=== PATIENT | female | born 1945 | race African-American/Black ===

== ENCOUNTER → 2022-08-01 10:43 | Outpatient (BNVA) | payer MEDICARE, OTHER, SELFPAY | PROVIDERS: PCP Internal Medicine; Visit Provider Nurse Practitioner Family | DX: G47.33 Obstructive sleep apnea (adult) (pediatric) (principal); Z99.89 Dependence on other enabling machines and devices | CPT/HCPCS: 99212 ==

== ENCOUNTER 2023-08-04 10:32 | Outpatient (AMB) | payer MEDICARE, OTHER, SELFPAY ==
--- NOTE | 2023-08-04 10:44 | A.OFFVIS_ITS ---
Intake Vital Signs 08/04/23 10:51 Weight 161 lb 8 oz BP 120/80 Blood Pressure Location Lt brachial Position Sitting Pulse 51 Pulse Source Pulse Oximeter Pulse Oximetry (%) 99 Oxygen Delivery Method Room Air Intake Visit Reasons: 1yr Follow up DIONICIO - confirmed Intake Note: F/U sleep Corporate Compliance Officer Required: No Allergies cipro iv Adverse Reaction (Intermediate, Uncoded 08/04/23 10:45) limb swelling Medication List - Last Reconciled 08/04/23 by Zeenat Sharma CNP albuterol sulfate 90 mcg/actuation 0 mcg inhalation aspirin (Adult Low Dose Aspirin) 81 mg PO DAILY cholecalciferol (vitamin D3) 25 mcg PO DAILY fluticasone furoate-vilanterol 200-25 mcg/dose (Breo Ellipta) 1 inh inhalation DAILY fluticasone propionate 50 mcg/actuation 2 sprays intranasal BID PRN levothyroxine 50 mcg PO DAILY lisinopril-hydrochlorothiazide 10-12.5 mg 1 tab PO DAILY omeprazole 20 mg PO DAILY potassium chloride 20 mEq PO DAILY simvastatin 20 mg PO BEDTIME HPI HPI Comments History of Present Illness Details 77 y/o female patient presents for follo w up of DIONICIO on CPAP. CPAP compliance and therapy response report (04/30/23-07/28/23) reviewed. Pt is on APAP [id number]. Usage days 100 %, and average usage hours 4 hours 40 min. The max pressure was 10.3 and residual AHI was 2/hr. Pt reports she uses CPAP nightly. She wakes up refreshed but still can get tiredness around 4-5 pm, and falls asleep in her couch. Pt's sleep hours varies, but sleeps well with CPAP. Pt states that she is being bored after retired. She started levothyroxine December this year. COUNT INCLUDES THE [facility] Surgical History (Updated 08/01/22 @ 10:56 by Zainab Pena CMA) H/O shoulder surgery Previous back surgery Social History (Updated 08/04/23 @ 10:51 by Zainab Pena CMA) Alcohol intake: never Patient Tobacco Use Status: Former Tobacco user Review of Systems Const All systems reviewed & are unremarkable except as noted in HPI and below ENT Reports Normal hearing present Neuro Reports Normal hearing present Physical Exam Vital Signs: Last Vital Signs Pulse 51 08/04/23 10:51 BP 120/80 08/04/23 10:51 Pulse Ox 99 08/04/23 10:51 Oxygen Delivery Method Room Air 08/04/23 10:51 Const General: cooperative Nutritional Appearance: average body habitus Orientation/consciousness: patient oriented x3 Resp Effort & Inspection: normal respiratory effort and able to speak in complete sentences Neuro General: patient oriented x3, gait normal and moves all extremities Cranial nerves: Yes Bilaterally intact EOM present, Yes Normal facial strength present, Yes Midline tongue present, Yes Symmetric palate elevation present, Yes Normal hearing present, Yes Ability to bilaterally rotate head present and Yes Ability to bilaterally elevate shoulders present Cognition (Neuro): normal cognition Gait exam (Neuro): Normal gait present Psych Appearance: grossly normal Mental Status: mental status grossly normal Speech and movement: Normal speech and movement present Affect: normal affect Attitude: cooperative Assessment & Plan Assessment & Plan (1) DIONICIO on CPAP: Code(s): G47.33 - Obstructive sleep apnea (adult) (pediatric); Z99.89 - Dependence on other enabling machines and devices Plan Continue to use APAP 5-15 cmH2O as patient experiences good clinical result. Sleep hygiene education provided. Encouraged patient to have routine sleep schedule and limit taking a nap. Coding Level of Care Code Est Pt Level 3 (74265) Diagnoses DIONICIO on CPAP G47.33; Z99.89
[2023-08-04 10:51] VITALS: BP 120/80; PULSE 51; O2SAT 99
== END 2023-08-04 11:12 | disposition home or self-care (01) ==
PROVIDERS: Visit Provider Nurse Practitioner Family
DX: G47.33 Obstructive sleep apnea (adult) (pediatric) (principal); Z99.89 Dependence on other enabling machines and devices
CPT/HCPCS: 99213

== ENCOUNTER → 2023-08-04 10:32 | Outpatient (BNVA) | payer MEDICARE, OTHER, SELFPAY | PROVIDERS: Visit Provider Nurse Practitioner Family | DX: G47.33 Obstructive sleep apnea (adult) (pediatric) (principal); Z99.89 Dependence on other enabling machines and devices | CPT/HCPCS: 99212 ==

== ENCOUNTER 2024-09-02 10:30 | Outpatient (AMB) | payer MEDICARE, OTHER, SELFPAY ==
[2024-09-02 10:55] VITALS: BP 124/82; BMI 29.5
--- NOTE | 2024-09-02 10:55 | MHC.OFFVIS ---
Vital Signs 09/02/24 10:55 Height 5 ft 3 in Weight 166 lb 8 oz BMI 29.5 BP 124/82 Blood Pressure Location Rt brachial Position Sitting Intake Visit Reasons: 1 yr f/u for DIONICIO Intake Note: Patient presents for follow up Allergies cipro iv Adverse Reaction (Intermediate, Uncoded 09/02/24 10:56) limb swelling Medication List - Last Reconciled 09/02/24 by Jose Martin Ying PA-C albuterol sulfate 90 mcg/actuation 0 mcg inhalation aspirin (Adult Low Dose Aspirin) 81 mg PO DAILY cholecalciferol (vitamin D3) 25 mcg PO DAILY fluticasone furoate-vilanterol 200-25 mcg/dose (Breo Ellipta) 1 inh inhalation DAILY fluticasone propionate 50 mcg/actuation 2 sprays intranasal BID PRN levothyroxine 50 mcg PO DAILY lisinopril-hydrochlorothiazide 10-12.5 mg 1 tab PO DAILY omeprazole 20 mg PO DAILY potassium chloride 20 mEq PO DAILY simvastatin 20 mg PO BEDTIME HPI Comments Details: 77 y/o female h/o COPD presents for follow up of DIONICIO on CPAP. CPAP compliance and therapy response report (04/30/23-07/28/23) reviewed. Pt is on APAP [id number]. Usage days 100 %, and average usage hours 4 hours 40 min. The max pressure was 10.3 and residual AHI was 2/hr. Pt reports she uses CPAP nightly. She wakes up refreshed but still can get tiredness around 4-5 pm, and falls asleep in her couch. Pt's sleep hours varies, but sleeps well with CPAP, wakes up 4-5x for the bathroom. 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 She started levothyroxine December this year, she is still having brain fog, excessive daytime sleepiness, memory deficits. She is not satisfied with the pressures and uses her machine daily, cleans her mask. [facility] Surgical History H/O shoulder surgery Previous back surgery Social History Alcohol intake: never Patient Tobacco Use Status: Former Tobacco user Review of Systems Const All systems reviewed & are unremarkable except as noted in HPI and below Physical Exam Vital Signs: Last Vital Signs BP 124/82 09/02/24 10:55 BMI result Body Mass Index 29.5 Const General: cooperative, comfortable and no acute distress Nutritional Appearance: average body habitus Orientation/consciousness: patient oriented x3 HEENT Face and sinus: Yes normal facial exam and Yes face symmetric Eyes Pupils: Equal, round and reactive pupils present Neck Neck: Yes full ROM Resp Effort & Inspection: normal respiratory effort and able to speak in complete sentences Neuro General: patient oriented x3 Cranial nerves: Yes CN's II-XII intact bilaterally, Yes Facial sensation intact/muscles of mastication intact, Yes Equal, round and reactive pupils present, Yes Normal accommodation reflex present, Yes Ability to bilaterally rotate head present and Yes Ability to bilaterally elevate shoulders present Gait exam (Neuro): Normal gait present Motor exam (neuro): 5/5 motor strength present throughout Deep tendon reflexes (DTR's): Right triceps reflex intensity grade: 2+, Left triceps reflex intensity grade: 2+, Rt Biceps (C5, C6): 2+, Left biceps reflex intensity grade: 2+, Right brachioradialis reflex intensity grade: 2+, Left brachioradialis reflex intensity grade: 2+, Right patellar reflex intensity grade: 2+ and Left patellar reflex intensity grade: 2+ Coordination: ckzyso-xy-[id number] test normal Assessment & Plan Assessment & Plan (1) Hypersomnia: Code(s): G47.10 - Hypersomnia, unspecified Category: Medical (2) Fatigue: Code(s): R53.83 - Other fatigue Category: Medical (3) DIONICIO on CPAP: Code(s): G47.33 - Obstructive sleep apnea (adult) (pediatric); Z99.89 - Dependence on other enabling machines and devices Category: Medical Plan -Patient advised to get at least 7-8 hours of sleep per night. -Going to bed at a scheduled time and waking up at a set scheduled time, helps to regulate the (sleep, body temperature along with hormone release) - balances the natural circadian rhythm. -Cool, dark environment with soft music, no electronic devices, sets the environment for optimizing sleep. -Daily exercise, night time yoga, meditation and diffusing essential oils can help with relaxation. -Limit caffeinated drinks, and fluids to four hours prior to bed. -Gabapentine 100mg PO BID -Labs Iron/Folate / B-12 Fatigue, brain fog, excessive sleepiness -Titration Study for CPAP mask pressure adjustment, patient has sleep Apnea and difficulty tolerating the pressures. Orders: Orders Vitamin B12 and Folate Today G47.33 - Obstructive sleep apnea (adult) (pediatric), Z99.89 - Dependence on other enabling machines and devices IRON PROFILE Today G47.33 - Obstructive sleep apnea (adult) (pediatric), Z99.89 - Dependence on other enabling machines and devices Medications: New gabapentin 100 mg PO BID 90 caps 1RF G47.10 - Hypersomnia, unspecified, R53.83 - Other fatigue Coding Level of Care Code Est Pt Level 4 (19099) Diagnoses Hypersomnia G47.10 Fatigue R53.83 DIONICIO on CPAP G47.33; Z99.89
== END 2024-09-02 11:59 | disposition home or self-care (01) ==
PROVIDERS: Absent Provider Psychiatry & Neurology Neurology; PCP Internal Medicine; Visit Provider Physician Assistant Medical
DX: G47.10 Hypersomnia, unspecified (principal); R53.83 Other fatigue; G47.33 Obstructive sleep apnea (adult) (pediatric); Z99.89 Dependence on other enabling machines and devices
CPT/HCPCS: 99214

== ENCOUNTER → 2024-09-02 10:30 | Outpatient (BNVA) | payer MEDICARE, OTHER, SELFPAY | PROVIDERS: Absent Provider Psychiatry & Neurology Neurology; PCP Internal Medicine; Visit Provider Physician Assistant Medical | DX: G47.10 Hypersomnia, unspecified (principal); R53.83 Other fatigue; G47.33 Obstructive sleep apnea (adult) (pediatric); Z99.89 Dependence on other enabling machines and devices | CPT/HCPCS: 99212 ==

== ENCOUNTER 2025-01-03 10:15 | Outpatient (AMB) | payer MEDICARE, OTHER, SELFPAY ==
--- NOTE | 2025-01-03 10:19 | MHC.OFFVIS ---
Vital Signs 01/03/25 10:21 Height 5 ft 3 in Weight 161 lb 8 oz BMI 28.6 BP 110/76 Intake Visit Reasons: 1 yr f/u for DIONICIO Intake Note: Patient presents follow up DIONICIO. Labs in chart. No Compliance(last 07/28/23). Patient stated that her body did not tolerate Gabapentin. Allergies cipro iv Adverse Reaction (Intermediate, Uncoded 09/02/24 10:56) limb swelling HPI Comments Details: 79 y/o r. handed female with h/o COPD presents for follow up of DIONICIO on CPAP. CPAP compliance and therapy response report (11/05/24-01/03/25) reviewed, per patient. Javid is her CPAP provider 2024 - 01/03/2025 Pt is on APAP [id number]. Usage days 100 %, and average usage hours 4 hours 40 min. The max pressure was 10.3 and residual AHI was 2/hr. Patient's Interval Medical History: she had a fall in Nov 2024, in her house but doesn't remember hitting her head. Pt reports she uses CPAP nightly, and is not satisfied with the pressures as she has COPD. She wakes up refreshed but still gets tired easily especially around 4-5 pm, and falls asleep in her couch. Pt's sleep hours vary, she sleeps well with CPAP, wakes up 4-5x for the bathroom. 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 She has mild headaches at baseline with vertigo and balance issues, declines medication today. Denies photo/phonophobia/ N/V. She started Levothyroxine this December, however still feels hands are cold and poor circulation, her brain fog has improved. She says her memory is intact, though she forgets at times with STM tasks. She lives with her son, and is independent with all her ADLs. She cleans her mask, changes filters and water as needed. She feels her bowel incontinence is worse with anxiety and mood, and ruminates about house repairs and insulation projects. She goes to the [facility], 2x per week. She cleans her mask, changes filters and water in her machine as needed. [facility] Surgical History H/O shoulder surgery Previous back surgery Social History Alcohol intake: never Patient Tobacco Use Status: Former Tobacco user Review of Systems Const All systems reviewed & are unremarkable except as noted in HPI and below Physical Exam Vital Signs: Last Vital Signs BP 110/76 01/03/25 10:21 BMI result Body Mass Index 28.6 Const General: cooperative, comfortable and no acute distress Nutritional Appearance: average body habitus Orientation/consciousness: patient oriented x3 HEENT Face and sinus: Yes normal facial exam and Yes face symmetric Eyes Pupils: Equal, round and reactive pupils present Neck Neck: Yes full ROM Resp Effort & Inspection: normal respiratory effort and able to speak in complete sentences Neuro General: patient oriented x3 Cranial nerves: Yes CN's II-XII intact bilaterally, Yes Facial sensation intact/muscles of mastication intact, Yes Equal, round and reactive pupils present, Yes Normal accommodation reflex present, Yes Ability to bilaterally rotate head present and Yes Ability to bilaterally elevate shoulders present Gait exam (Neuro): Normal gait present Motor exam (neuro): 5/5 motor strength present throughout Deep tendon reflexes (DTR's): Right triceps reflex intensity grade: 2+, Left triceps reflex intensity grade: 2+, Rt Biceps (C5, C6): 2+, Left biceps reflex intensity grade: 2+, Right brachioradialis reflex intensity grade: 2+, Left brachioradialis reflex intensity grade: 2+, Right patellar reflex intensity grade: 2+ and Left patellar reflex intensity grade: 2+ Coordination: [id number] test normal Results Reviewed Results Reviewed: [employer] Compliance 11/06/2024 - 01/03/2025 Assessment & Plan Assessment & Plan (1) Fatigue: Code(s): R53.83 - Other fatigue Category: Medical Qualifiers: Fatigue type: chronic, unspecified Qualified Code(s): R53.82 - Chronic fatigue, unspecified (2) DIONICIO on CPAP: Code(s): G47.33 - Obstructive sleep apnea (adult) (pediatric); Z99.89 - Dependence on other enabling machines and devices Category: Medical (3) 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 PT Gait and Balance Difficulty CT scan fall at home without f/u. Orders: Orders PT Evaluation and Treatment Today R26.89 - Other abnormalities of gait and mobility, S09.90XS - Unspecified injury of head, sequela Comprehensive Met. Panel Today R26.89 - Other abnormalities of gait and mobility, S09.90XS - Unspecified injury of head, sequela Hemoglobin A1c Today R26.89 - Other abnormalities of gait and mobility, R53.83 - Other fatigue, S09.90XS - Unspecified injury of head, sequela Homocysteine Today G47.9 - Sleep disorder, unspecified, R53.83 - Other fatigue Vitamin D 25-OH Total Today R53.83 - Other fatigue Complete Blood Count no Diff Today R53.83 - Other fatigue Ferritin Today R53.83 - Other fatigue Methylmalonic Acid Today G47.9 - Sleep disorder, unspecified, R53.83 - Other fatigue TSH reflex Free T4 Today R53.83 - Other fatigue Vitamin B12 and Folate Today R53.83 - Other fatigue Patient Instructions: Sleep Hygiene provided: set a scheduled bedtime and wake time to help regulate the circadian rhythm and balance the release of pituitary hormones. Sleep in a dark room, temperatures below 68 degrees, and no devices n bed. Limit caffeinated products 6 hours prior to bed, and limit fluids 2-4 hours prior to bed. Gentle night yoga, diffusing essential oils, and playing soft music can be relaxing. For balance and Gait difficulty, monitor blood pressure, timing and onset of balance and gait difficulty, hunger, diet? Orthostatic HTN?, Morning or evening? Will f/u with imagining at next visit. 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
[2025-01-03 10:21] VITALS: BP 110/76; BMI 28.6
== END 2025-01-03 11:35 | disposition home or self-care (01) ==
LOC: HO.HSMS 10:15
PROVIDERS: PCP Internal Medicine; Visit Provider Physician Assistant Medical
DX: R53.82 Chronic fatigue, unspecified (principal); G47.33 Obstructive sleep apnea (adult) (pediatric); Z99.89 Dependence on other enabling machines and devices; R26.89 Other abnormalities of gait and mobility; S09.90XS Unspecified injury of head, sequela
CPT/HCPCS: 99214

== ENCOUNTER → 2025-01-03 10:15 | Outpatient (BNVA) | payer MEDICARE, OTHER, SELFPAY | PROVIDERS: PCP Internal Medicine; Visit Provider Physician Assistant Medical | DX: G47.33 Obstructive sleep apnea (adult) (pediatric) (principal); R53.82 Chronic fatigue, unspecified; R26.89 Other abnormalities of gait and mobility; S09.90XS Unspecified injury of head, sequela; X58.XXXS Exposure to other specified factors, sequela; Z99.89 Dependence on other enabling machines and devices | CPT/HCPCS: 99212 ==

== ENCOUNTER 2025-07-07 10:07 | Outpatient (AMB) | payer MEDICARE, OTHER, SELFPAY ==
--- OUTSIDE RECORDS SUMMARY | 2024-11-25 06:00 | XMS_ITS ---
Author Organization [facility], [place] Address [address] [facility] [address] [place] [address] Care Team Providers Care Senior Product Designer Name Role Phone Migration, Provider Unavailable Unavailable REASON FOR VISIT Follow-up Appt Encounters Encounter Location Date Provider Diagnosis [address] [place] [phone] 11/25/2024 Provider Migration Plan Of Treatment Next Appt Details Provider Name:Carolina Franco, 08/01/2025 10:45:00 AM, [address] [facility], Suite [facility], [place], [address], [phone] Progress Notes * RAMSES WOODOB:1945 (79 yo F)Acc No.[id number]:11/25/2024 Progress Notes Patient: Jessica MAHMOOD HEIDY Provider: Ryne Echevarria :1945 A ge:78 Y S ex:Female Date:11/25/2024 Address:[address] [place], [place] [phone] Subjective: * Chief Complaints: * F ollow-up Appt * Ocular Surgical History: Objective: Vision Examination: * Electronic signature of Prov ider Migration on 07/07/2025 at 12:16 PM EDT Sign off status: Pending * Provider: Ryne jamil Migration Date: 11/25/2024 Generated for Printi ng/Faxing/eTransmitting on: 0 07/07/2025 12:16 PM EDT
--- OUTSIDE RECORDS SUMMARY | 2024-12-23 06:30 | XMS_ITS ---
Author Organization [facility], [place] Address [address] [facility] [address] [place] [address] Care Team Providers Care Cigar Making Machine Operator Name Role Phone Jeremy Mcgee Unavailable [phone] REASON FOR VISIT Follow-up Appt Encounters Encounter Location Date Provider Diagnosis [facility], [address] [place] [phone] 12/23/2024 Jeremy Mcgee Plan Of Treatment Next Appt Details Provider Name:Carolina Franco, 08/01/2025 10:45:00 AM, [address] [facility], [address], [place], [address], [phone] Progress Notes * RAMSES WOODOB:1945 (79 yo F)Acc No.[id number]:12/23/2024 Progress Notes Patient: LISSETH SCOTTRA Provider: Virgilio YEAGER :1945 A ge:79 Y S ex:Female Date:12/23/2024 Address:[address] [place], [place] [phone] Subjective: * Chief Complaints: * F ollow-up Appt * Ocular Surgical History: Objective: Vision Examination: * Electronic signature of Dilip Mcgee PA-C on 07/07/2025 at 12:16 PM EDT Sign off status: Pending * Provider: Virgilio YEAGER Date: 0 12/23/2024 Generated for Printi ng/Faxing/eTransmitting on: 0 07/07/2025 12:16 PM EDT
--- OUTSIDE RECORDS SUMMARY | 2024-12-23 06:30 | XMS_ITS ---
Author Organization [facility], [place] Address [address] [facility] [address] [place] [address] Care Team Providers Care Furnace Installer Helper Name Role Phone Migration, Provider Unavailable Unavailable REASON FOR VISIT Follow-up Appt Encounters Encounter Location Date Provider Diagnosis [facility] [address] [facility] [address] [place] [address] 12/23/2024 Provider Migration Plan Of Treatment Next Appt Details Provider Name:Carolina Franco, 08/01/2025 10:45:00 AM, [address] [facility], Suite [facility], [place], [address], [phone] Progress Notes * RAMSES WOODOB:1945 (79 yo F)Acc No.[id number]:12/23/2024 Progress Notes Patient: Jessica MAHMOOD HEIDY Provider: Ryne Echevarria :1945 A ge:79 Y S ex:Female Date:12/23/2024 Address:[address] [place], [place] [phone] Subjective: * Chief Complaints: * F ollow-up Appt * Ocular Surgical History: Objective: Vision Examination: * Electronic signature of Prov ider Migration on 07/07/2025 at 12:16 PM EDT Sign off status: Pending * Provider: Ryne jamil Migration Date: 12/23/2024 Generated for Printi ng/Faxing/eTransmitting on: 0 07/07/2025 12:16 PM EDT
--- OUTSIDE RECORDS SUMMARY | 2025-05-02 06:00 | XMS_ITS ---
Author Organization [facility] [place] Address [address] [place] [address] Care Team Providers Care Political Scientist Name Role Phone Carolina Franco Unavailable [phone] Allergies Allergen (clinical drug ingredient) Drug/Non Drug [...] Location Date Provider Diagnosis [facility], [place] [address] [facility] [address] [place] [address] 05/02/2025 Carolina Franco Plan Of Treatment Next Appt Details Provider Name:Carolina Franco, 08/01/2025 10:45:00 AM, [address] [facility], [address], [place], [address], [phone] History and Physical Notes * HPI (History [...] Notes * NINA RAMSESOB:1945 (79 yo F)Acc No.[id number]:05/02/2025 Progress Notes Patient: HEIDY SCOTT Provider: Jessica Franco :1945 A ge:79 Y S ex:Female Date:05/02/2025 Address:[address] [place] [phone] Subjective: * Chief Complaints: * I 'm [...] GERD, HTN, hypothyroidism, allergic rhinitis, chronic pain, DIONCIIO, hypokalemia, HLD and asthma/COPD who presents for [...] * Electronic signature of Sasha Franco on 07/07/2025 at 12:15 PM EDT Sign off status: Pending * Provider: Jessica Franco Date: 05/02/2025 Generated for Nydia arechiga/Jose/Hailey on: 07/07/2025 12:15 PM EDT
--- OUTSIDE RECORDS SUMMARY | 2025-05-24 09:45 | XMS_ITS ---
Author Organization [facility], [place] Address [address] [place] [address] Care Team Providers Care Data Modeling Architect Name Role Phone Carolina Franco Unavailable [phone] Allergies Allergen (clinical drug ingredient) Drug/Non Drug [...] Location Date Provider Diagnosis [facility] [place] [address] [facility] [address] [place] [address] 05/24/2025 Carolina Franco Right foot pain M79.671 Assessments Encounter Date Diagnosis (ICD Code) Assessment Notes Treatment Notes Treatment Clinical Notes Section Notes 05/24/2025 Right foot pain (ICD-10 - M79.671) Plan Of Treatment Medication Medication Name Sig Start Date Stop Date Notes Celecoxib 50 MG Capsule 1 capsule Orally Once a day; Duration: 3 days 05/24/2025 Next Appt Details Provider Name:Carolina Franco, 08/01/2025 10:45:00 AM, [address] [place] [address], [place] [address], [place], [address], [phone] History and Physical Notes * HPI (History [...] Notes * RAMSES WOODOB:1945 (79 yo F)Acc No.[id number]:05/24/2025 Progress Notes Patient: Jessica HEIDY MAHMOOD Provider: Jessica Franco :1945 A ge:79 Y S ex:Female Date:05/24/2025 Address:[address] [place] [address], [id number] Subjective: * Chief Complaints: * P ain, [...] Area: 1.84. Assessment: * [facility]. [facility] - M79.671 Plan: * Treatment: * Electronic signature of Sasha Franco on 07/07/2025 at 12:15 PM EDT Sign off status: Pending * Provider: Jessica Franco Date: 0 05/24/2025 Generated for Nydia arechiga/Jose/Hailey on: 0 07/07/2025 12:15 PM EDT
--- NOTE | 2025-07-07 10:14 | A.OFFVIS_ITS ---
Vital Signs 07/07/25 10:19 Height 5 ft 3 in Weight 170 lb 6 oz BMI 30.2 BP 138/78 Blood Pressure Location Rt brachial Position Sitting Pulse 76 Pulse Source Pulse Oximeter Pulse Oximetry (%) 96 Oxygen Delivery Method Room Air Intake Visit Reasons: 6 mo follow up Intake Note: Patient presents follow up DIONICIO. Labs in chart. ankles still swollen. Accompanied by: Self / Same As Patient Allergies cipro iv Adverse Reaction (Intermediate, Uncoded 09/02/24 10:56) limb swelling HPI Comments Details: 79 y/o r. handed female with h/o COPD presents for follow up of DIONICIO on CPAP. Javid is her APAP provider, she is on Bipap therapy with 2 Liters of oxygen at night. DIONICIO Compliance Report March 2025- Jun 2025 [facility] 24 on APAP [id number] and compliant Total use is 100% and 90/90 days and avg use is 4 hours and 40min. Med pressure is 10.3cmH20 and AHI is 2 /hr. She cleans her mask, changes filters and fills reservoir with water. Gait and Balance instability, request PT today. R. foot drop, eversion and twisting of foot, will follow up with Rupa giraldo for her r. foot toe wedge support. [facility] had her gait evaluated and she is off balance due to pronation of the foot, we discussed wearing proper shoes with orthotics or memory foam insoles for support and using her cane daily. Pt reports she uses CPAP nightly, and is not satisfied with the pressures as she has COPD. She wakes up refreshed but still gets tired easily especially around 4-5 pm, and falls asleep in her couch. Pt's sleep hours vary, she sleeps well with CPAP, wakes up 2-3x for the bathroom. Pt states that she is bored after group home and her sleep schedule is erratic. She has mild headaches at baseline with vertigo and balance issues, declines medication today. Denies photo/phonophobia/ N/V. She started Levothyroxine this December, however still feels hands are cold and poor circulation, her brain fog has improved. She says her memory is stable, though she forgets at times and has poor stm. She lives with her son, and is independent with all her ADLs. She feels her bowel incontinence is worse with anxiety and mood, and ruminates about house repairs and insulation projects. She goes to the [facility], 2x per week for socialization and activities. [facility] Surgical History H/O shoulder surgery Previous back surgery Social History Alcohol intake: never Patient Tobacco Use Status: Former Tobacco user Physical Exam Vital Signs: Last Vital Signs Pulse 76 07/07/25 10:19 BP 138/78 07/07/25 10:19 Pulse Ox 96 07/07/25 10:19 Oxygen Delivery Method Room Air 07/07/25 10:19 BMI result Body Mass Index 30.2 Assessment & Plan Assessment & Plan (1) DIONICIO on CPAP: Comment: on bipap with 2 liters of o2 at night and still anemic Code(s): G47.33 - Obstructive sleep apnea (adult) (pediatric); Z99.89 - Dependence on other enabling machines and devices Category: Medical (2) 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: Code(s): H81.90 - Unspecified disorder of vestibular function, unspecified ear Category: Medical Qualifiers: Laterality: bilateral Qualified Code(s): H81.93 - Unspecified disorder of vestibular function, bilateral (3) Anemia, B12 deficiency: Code(s): D51.9 - Vitamin B12 deficiency anemia, unspecified Category: Medical Qualifiers: Vitamin B12 deficiency anemia type: intrinsic factor deficiency Qualified Code(s): D51.0 - Vitamin B12 deficiency anemia due to intrinsic factor deficiency (4) Fatigue: Code(s): R53.83 - Other fatigue Category: Medical Qualifiers: Fatigue type: unspecified Qualified Code(s): R53.83 - Other fatigue (5) 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 PSG to evaluate, Continue use of Bipap, with 2 liters of o2 at night daily and for >4 hours a night. will assess with psg as pt has not had a psg in over 10years. PT Gait and Balance Difficulty Orders: Orders PT Evaluation and Treatment 07/07/25 H81.90 - Unspecified disorder of vestibular function, unspecified ear, M54.32 - Sciatica, left side RT PSG in-lab sleep study 07/07/25 G47.10 - Hypersomnia, unspecified, G47.33 - Obstructive sleep apnea (adult) (pediatric), Z99.89 - Dependence on other enabling machines and devices Medications: New mecobalamin (vitamin B12) place tablet under tongue and allow to dissolve for at least30 secs before swallowing 1,000 mcg sublingual BEDTIME 90 tabs 3RF low b12 3 months MDD 1000mcg D51.9 - Vitamin B12 deficiency anemia, unspecified Coding Level of Care Code Est Pt Level 4 (13188) Diagnoses DIONICIO on CPAP G47.33; Z99.89 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
[2025-07-07 10:19] VITALS: BP 138/78; PULSE 76; O2SAT 96; BMI 30.2
--- OUTSIDE RECORDS SUMMARY | 2025-07-07 12:16 | XMS_ITS | Clinical Summary ---
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 05/24/20 24 Active levothyroxine (SYNTHROID, LEVOTHROID) 50 mcg tablet Take 1 tablet (50 mcg total) by mouth 1 (one) time each day. Active fluticasone furoate-vilantero L (BREO ELLIPTA) 100-25 mcg/dose inhaler Active magnesium oxide (MAG-OX) 400 mg magnesium tablet Take by mouth. Active medical supply, miscellaneous (MISCELLANEOUS MEDICAL SUPPLY MISC) CPAP HISTORICAL (HISTORICAL CPAP Inhale into the lungs. Active Oxygen Therapy (O2) gas Inhale into the lungs. 3 liters @@ night with cpap Active lisinopril-hydroC HLOROthiazide (PRINZIDE,ZESTORE TIC) 10-12.5 mg per tablet Take 1 tablet by mouth 1 (one) time each day. Active omeprazole (PRILOSEC) 20 mg tablet,delayed release (DR/EC) Take by mouth daily. Active simvastatin (ZOCOR) 20 mg tablet Take 1 tablet (20 mg total) by mouth at bedtime. Active ASPIRIN ORAL Take 81 mg by mouth daily. Active cholecalciferol (VITAMIN D-3) 25 mcg (1,000 unit) tablet Take by mouth daily. Active fluticasone propionate (FLONASE) 50 mcg/actuation nasal spray 2 Sprays by Each Nare route daily. Active potassium chloride (KLOR-CON) 20 mEq packet Active calcium carbonate-vitamin D3 600 mg-5 mcg (200 unit) per tablet Take by mouth. 07/25/20 11 Active citalopram (CeleXA) 10 mg tablet Take 1 tablet (10 mg total) by mouth 1 (one) time each day. 08/17/20 19 Active fluticasone-salme terol (Advair Diskus) 250-50 mcg/dose diskus inhaler Inhale 1 puff by mouth 2 (two) times a day. 05/04/20 22 Active omeprazole OTC (PriLOSEC OTC) 20 mg EC tablet Take 1 tablet (20 mg total) by mouth 1 (one) time each day. Active oxyCODONE (ROXICODONE) 5 mg immediate release tablet 1 tablet (5 mg total) every 4 (four) hours if needed for moderate pain or severe pain. Max Daily Amount: 30 mg 03/12/20 22 Active sulfamethoxazole- trimethoprim (BACTRIM DS,SEPTRA DS) 800-160 mg per tablet Take by mouth 2 (two) times a day. 05/10/20 22 Active tiZANidine (ZANAFLEX) 2 mg tablet Take 1 tablet (2 mg total) by mouth. Active tiZANidine (ZANAFLEX) 4 mg capsule Take 2 capsules (8 mg total) by mouth. 08/17/20 Active traMADoL (ULTRAM) 50 mg tablet Take 1 tablet (50 mg total) by mouth every 8 (eight) hours if needed. Max Daily Amount: 150 mg 05/28/20 22 Active cholecalciferol (VITAMIN D-3) 25 mcg (1,000 unit) tablet Take by mouth 1 (one) time each day. Active fluticasone propionate (FLONASE) 50 mcg/actuation nasal spray Administer 2 sprays into affected nostril(s) 1 (one) time each day. Active lisinopril-hydroC HLOROthiazide (PRINZIDE,ZESTORE TIC) 10-12.5 mg per tablet Take 1 tablet by mouth 1 (one) time each day. 08/17/20 Active omeprazole (PriLOSEC) [address] capsule Take 1 capsule (20 mg total) by mouth. 10/28/19 Active potassium chloride (KLOR-CON) 20 mEq packet Take 20 mEq by mouth 1 (one) time each day. Active simvastatin (ZOCOR) 20 mg tablet Take 1 tablet (20 mg total) by mouth at bedtime. Active albuterol HFA (PROAIR HFA ; PROVENTIL HFA ; VENTOLIN HFA) 90 mcg/actuation inhalerIndication s:Chronic obstructive pulmonary disease, unspecified ([facility] V24, [facility] V28) INHALE 2 PUFFS INTO THE LUNGS EVERY 4 HOURS NEEDED FOR WHEEZING FOR UP TO 30 DAYS. 8.5 each 2 12/03/19 Active polyethylene glycol (Golytely) 236-22.74-6.74 -5.86 gram solution Take 4L by mouth once for one dose. May substitue any PEG. Starting at 2PM the day before your procedure drink 1 8oz glasses at your own pace until you complete half of the gallon. Finish 2nd half of the gallon at 8PM. 4000 mL 05/06/20 Active Additional Information Patient not taking.Reported on 06/06/2025 bisacodyL (DULCOLAX) 5 mg EC tablet Take 2 tablets by mouth right before beginning bowel prep. See instructions provided by the office 2 tablet 05/06/20 Active Breo Ellipta 200-25 mcg/dose inhaler INHALE 1 PUFF INTO THE LUNGS DAILY FOR 30 DAYS. 60 each 11 05/24/20 Active Active Problems Problem Noted Date Diagnosed Date Supplemental oxygen dependent 03/03/2019 DIONICIO (obstructive sleep apnea) 05/28/2018 Thyroid nodule 05/28/2018 Chronic obstructive pulmonar y disease ([facility] V24, [facility] V28) 05/06/2018 ILD (interstitial lung disease) ([facility] V24, S/[facility] V28) 05/06/2018 Carpal tunnel syndrome 04/16/2018 GERD (gastroesophageal reflux disease) 8 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 ([facility] V24, [facility] V28) 04/16/2018 Overview (08/05/2024): Chronic altered sensation RLE since 2011 Hyperlipidemia 04/16/2018 Hypertension 04/16/2018 Lumbosacral spondylosis with radiculopathy 04/16 Trochanteric bursitis 04/16/2018 Type 2 diabetes, controlled, with neuropathy ([facility] V24, [facility] V28) 04/16/2018 Encounters Date Type Department Care Team Description 06/06/2025 9:15 AM EDT Office Visit Pulmonology [facility] [address] [facility] [address] [place] [id number] Tereza Slaughter MD ILD (interstitial lung disease) ([facility] V24, [facility] V28) (Primary Dx); DIONICIO (obstructive sleep apnea) 05/28/2025 8:50 AM EDT - 05/28/2025 11:59 PM EDT Hospital Encounter [facility] CT Scan [address] [place] [address] Encounter for screening for lung cancer; Former smoker Discharge Disposition: Home or Self Care 05/20/2025 12:42 PM EDT Anesthesia Event [facility] Endoscopy [address] [place] [address] Quinton Bledsoe MD 05/20/2025 10:55 AM EDT - 05/20/2025 11:59 PM EDT Hospital Encounter [facility] Endoscopy [address] [place] [address] Abram Canas MD Steele, Matthew G, CRNA Dasilva, John E, MD History of colon polyps Discharge Disposition: Home or Self Care 05/04/2025 Telephone Pulmonology - [place] [address] [phone] Tereza Slaughter MD 04/29/2025 Telephone Lung Screening Program - [place] [address] [facility] [address] [place] [phone] Alison Smith [place] 04/29/2025 Telephone Pulmonology - [place] [address] [facility] [address] [place] [address] Tereza Slaughter MD from Last 3 Months Immunizations Name Administration Dates Next Due COVID-19 (Moderna) 6mo to less than 12yr 022 Hepatitis B (Rphczik-Y-Ttuwj , Recombivax HB-Adult) 19yo and older 02/12/1992,09/17/1991,08/17/1991 Influenza Quadravalent, 0.5m l (Fluad) 65yo and older 07/01/2023,07/11/2020 Influenza Quadravalent, 0.5m l (Fluzone High-dose) 65yo and older 07/16/2022,07/05/2021,07/02/2018 Influenza trivalent, 0.5mL ( Fluad) 65yo and older 07/13/2019 Pneumococcal polysaccharide 23 valent (Pneumovax 23) 2yo and older 07/03/2010 Td Tetanus diptheria (Tdvax) 7yo and older 08/04 Tdap Tetanus diptheria acell ular pertussis (Boostrix; Adacel) 7yo and older 01/11/2016 Zoster Live 06/09/2012 Surgical History Surgery Date Site/Laterality Comments OTHER SURGICAL HISTORY PROCEDURE: HI EXCISION PILONIDAL CYST/SINUS COMPLICATED SECTION PROCEDURE: HISTORICAL DELIVERY; COMMENT: x2 HYSTERECTOMY PROCEDURE: HISTORICAL HYSTERECTOMY LUMBAR LAMINECTOMY PROCEDURE: HISTORICAL LUMB LAMINECTOMY Medical History Medical History Date Comments Carpal tunnel syndrome 04/16/2018 DX:Carpal tunnel syndrome GERD (gastroesophageal reflux disease) 8 DX:GERD (gastroesophageal reflux disease) 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 ([facility] V24, [facility] V28) 04/16/2018 DX:Hemiparesis affecting rig ht side as late effect of stroke ([facility]); COMMENT: Chronic altered sensation RLE since 2011 History of pneumonia 04/16/2018 DX:History of pneumonia; COMMENT: Legionella 08/2014, hospitalized for dehydration Hyperlipidemia 04/16/2018 DX:Hyperlipidemi a Hypertension 04/16/2018 DX:Hypertension Lumbosacral spondylosis with radiculopathy 04/16/2018 DX:Lumbosacral spondylosis w ith radiculopathy Trochanteric bursitis 04/16/2018 DX:Trochan teric bursitis Type 2 diabetes, controlled, with neuropathy ([facility] V24, [facility] V28) 04/16/2018 DX:Type 2 diabet es, controlled, with neuropathy ([facility]) DIONICIO (obstructive sleep apnea) 05/28/2018 DX :DIONICIO (obstructive sleep apnea) History of hyperthyroidism 05/28/2018 DX:Hi story of hyperthyroidism; COMMENT: S/p BECKER Thyroid nodule 05/28/2018 DX:Thyroid nodul e Fecal incontinence DX:Fecal inco ntinence History of lumbar surgery DX:His tory of lumbar surgery Hypothyroid COPD (chronic obstructive pu lmonary disease) ([facility] V24, [facility] V28) TIA (transient ischemic attack) Family History Medical History Relation Name Comments Brain cancer Father COPD Mother Relation Name Status Comments Father Mother Social History Tobacco Use Types Packs/Day Years Used Date Smoking Tobacco: Former Smokeless Tobacco: Never Alcohol Use Standard Drinks/Week Comments No 0 (1 standard drink = 0.6 oz pur e alcohol) Interpersonal Safety Answer Date Record ed Physical Abuse 05/20/2025 Verbal Abuse 05/20/2025 Comments Unknown Sex and Gender Information Value Date Recorded Sex Assigned at Female 05/20/2025 11:05 PM EDT Legal Sex Female 7:16 PM EST Gender Identity Not on file Sexual Orientation Not on file Obstetrics History Last Filed Vital Signs Vital Sign Reading Time Taken Comments Blood Pressure 104/70 06/06/2025 9:34 AM EDT Pulse 69 06/06/2025 9:34 AM EDT Temperature 36.1 C (97 F) 06/06/2025 9:34 AM EDT Respiratory Rate 16 06/06/2025 9:34 AM EDT Oxygen Saturation 98% 06/06/2025 9:34 AM EDT Inhaled Oxygen Concentration - - Weight 75 kg (165 lb 6.4 oz) 06/06/2025 9:34 AM EDT Height 162.6 cm (5' 4 ) 06/06/2025 9:34 AM EDT Body Mass Index 28.39 06/06/2025 9:34 AM EDT Plan of Treatment Upcoming Encounters Date Type Department Care Team (Late st Contact Info) Description 12/05/2025 9:45 AM EST Office Visit Pulmonology - [address] [place] [address] Tereza Slaughter MD [address] [facility] [place] [address] [place] [address] Health Maintenance Due Date Last Done Comments Diabetes: Annual Foot Exam 12/11/1955 Diabetes: Annual Retina Eye Exam 12/11/1957 Zoster Vaccines (2 of 3) 08/04/2012 06/09/2012 Hepatitis C Screening 09/20/2022 Osteoporosis Screening (Bone Density Screening) 09/20/2022 Social Influencers of Health Screening 09/20/2022 Diabetes: Annual Urine Albumin-Creatinine Ratio (uACR) 09/28/2022 RSV Immunization Adult Patients (1 - 1-dose 75+ series) 12/11/2022 Medicare Annual Wellness Visit 01/03/2024 01/02/2023 Depression Screening 10/13/2024 COVID-19 Vaccine ( season) 2025 08/16/2024, 08/26/2023, 07/27/2022, Additional history exists Influenza Vaccine (#1) 2025 , 07/01/2023, 07/16/2022, Additional history exists Diabetes: Blood Sugar Control Test (HGBA1C) 06/25/2025 12/23/2024 Pneumococcal Vaccine: 50+ Years (3 of 3 - PCV20 or PCV21) 07/03/2025 07/03/2020, 07/03/2010 Diabetes: Annual GFR (Glomerular Filtration Rate) 05/02/2026 05/02/2025, 01/04/2025, 12/23/2024 Hypertension/CHF/CAD Annual BMP Blood Test 05/02/2026 05/02/2025, 01/04/2025, 12/23/2024 Falls Risk Assessment 05/20/2026 05/20/2025 Cholesterol Screening (Lipid Panel) 12/23/2029 12/23/2024 Colorectal Cancer Screening: Colonoscopy 05/20/2030 05/20/2025 DTaP,Tdap,and Td Vaccines (4 - Td or Tdap) 05/22/2034 05/22/2024, 01/11/2016, 08/04/2006 Hepatitis B Vaccines Completed 02/12/1992, 09/17/1991, 08/17/1991 Breast Cancer Screening Discontinued 11/24/19 23, 11/18/2021, 11/12/2020, Additional history exists HIB Vaccines Aged Out No longer eligi ble based on patient's age to complete this topic HPV Vaccines Aged Out No longer eligi ble based on patient's age to complete this topic Hepatitis A Vaccines Aged Out No long er eligible based on patient's age to complete this topic IPV Vaccines Aged Out No longer eligi ble based on patient's age to complete this topic MMR Vaccines Aged Out No longer eligi ble based on patient's age to complete this topic Meningococcal ACWY Vaccine Aged Out N o longer eligible based on patient's age to complete this topic Meningococcal B Vaccine Aged Out No l onger eligible based on patient's age to complete this topic RSV Immunization Patients Under 20 months Aged Out No longer eligible based on patient's age to complete this topic Varicella Vaccines Aged Out No longer eligible based on patient's age to complete this topic Medical Devices Implanted Type Area [employer] Device Identifier Shelf Expiration Date Model / Serial / Lot Implants Implants Right: Shoulder Implants Implants Bilateral: Spine Lumbar Procedures Procedure Name Priority Date/Time Associated Diagnosis Comments CT LUNG SCREENING Routine 05/28/2025 8:5 8 AM EDT Encounter for screening for lung cancer Former smoker COLONOSCOPY Routine 05/20/2025 1:03 PM EDT History of colon polyps TISSUE EXAM Routine 05/20/2025 12:54 PM EDT History of colon polyps CBC WITH AUTO DIFFERENTIAL Routine 05/02/2025 11:03 AM EDT Hyperlipidemia Primary hypothyroidism COMPREHENSIVE METABOLIC PANEL Routine 05/02/2025 11:03 AM EDT Hyperlipidemia Primary hypothyroidism CBC AND DIFFERENTIAL Routine 05/02/2025 11:03 AM EDT Hyperlipidemia Primary hypothyroidism THYROXINE FREE Routine 05/02/2025 11:03 AM EDT Hyperlipidemia Primary hypothyroidism THYROID STIMULATING HORMONE Routine 05/02/2025 11:03 AM EDT Hyperlipidemia Primary hypothyroidism HEMOGLOBIN A1C Routine 12/23/2024 11:37 AM EDT Acquired hypothyroidism Hyperlipemia Essential hypertension, benign Routine general medical examination at a health care facility Encounter for long-term (current) use of medications LIPID PANEL WITH REFLEX TO DIRECT LDL Routine 12/23/2024 11:37 AM EDT Acquired hypothyroidism Hyperlipemia Essential hypertension, benign Routine general medical examination at a health care facility Encounter for long-term (current) use of medications GENEVA SCREENING DIGITAL Routine 11/24/2022 4:36 PM EST Encounter for screening mammogram for malignant neoplasm of breast from Last 3 Months or Most Recently Relevant to Health Maintenance Results * CT Lung Screening (05/28/2025 8:58 AM EDT) Anatomical Region Laterality Modality Chest Computed Tomogra phy 06/01/2025 5:50 PM EDT Impressions 06/01/2025 6:04 PM EDT Evidence of prior surgery. Scattered small nodules without significant interval change. No new suspicious nodule or mass. LUNG RADS: Lung-RADS 2: BENIGN S Modifier (Significant or Potentially Significant Findings): None present No suspicious nonpulmonary findings. RECOMMENDATIONS: 12 month screening low dose CT -------- FINAL REPORT -------- Dictated By: Amari Blunt Dictated Date: 06/01/2025 17:50 ET Assigned Physician: Amari Blunt Reviewed and Electronically Signed By: Amari Blunt Signed Date: 06/01/2025 18:04 ET Workstation ID: [id number] Transcribed By: Self Edit Transcribed Date: 06/01/2025 17:50 ET Narrative 06/01/2025 6:04 PM EDT EXAMINATION: CT CHEST WITHOUT CONTRAST LUNG CANCER SCREENING, LOW DOSE CLINICAL INFORMATION: Lung cancer screening. Former smoker. Prior reports indicate evidence of right lung surgery. COMPARISON: Portions of previous 05/15/24 TECHNIQUE: Multidetector CT. Examination of the chest. Examination of the chest without IV contrast. Reformatting in the coronal and sagittal planes. Device: Lightspeed VCT DLP: 122 mGy-cm CTDI: 4.83 Dose optimization was performed including the use of low-dose iterative reconstruction technique with automatic exposure control based on patient size. Type of contrast: None Volume of IV contrast: None Volume of contrast discarded: 0 mL FINDINGS: Digital drywall taper demonstrates extensive prior lumbar instrumentation and anchors associated with the right proximal humerus. LUNG: No suspicious abnormality of the trachea or mainstem bronchi. The trachea is deviated to the left at the level of the innominate. LUNG NODULES: There are no suspicious nodules or masses. There are multiple bilateral small nodules some are solid and some are groundglass. The largest in the posterior left upper lobe is unchanged in measures approximately 0.5 cm. OTHER PULMONARY: There is underlying chronic lung disease with some scattered linear and reticular opacities. There is no suspicious change in the region of the metallic sutures. There are moderate changes of centrilobular emphysema. There are some reticular opacities and some bandlike opacities similar to previous. No honeycomb formation. MEDIASTINUM: There are no enlarged mediastinal or hilar lymph nodes. No suspicious abnormalities of the esophagus. CARDIAC: No cardiac mass. No pericardial fluid. There are mild coronary calcifications. VASCULAR: There is no thoracic aortic aneurysm. The main pulmonary artery is normal caliber PLEURA: There is no pleural fluid or pneumothorax AXILLA/CHEST WALL: There are no enlarged axillary lymph nodes. No chest wall mass demonstrated. VISUALIZED UPPER ABDOMEN: No suspicious abnormality on limited assessment of the visualized upper abdomen. No significant change in low-density nodular thickening of the adrenal glands. MUSCULOSKELETAL: No suspicious focal bony lesion demonstrated. Procedure Note Amari Blunt MD - 06/01/2025 EXAMINATION: CT CHEST WITHOUT CONTRAST LUNG CANCER SCREENING, LOW DOSE CLINICAL INFORMATION: Lung cancer screening. Former smoker. Prior reports indicate evidence ofright lung surgery. COMPARISON: Portions of previous 05/15/24 TECHNIQUE: Multidetector CT. Examination of the chest. Examination of the chest without IV contrast. Reformatting in the coronal and sagittal planes. Device: Universal Roboticspeed VCT DLP: 122 mGy-cm CTDI: 4.83 Dose optimization was performed including the use of low-dose iterativereconstruction technique with automatic exposure control based on patientsize. Type of contrast: None Volume of IV contrast: None Volume of contrast discarded: 0 mL FINDINGS: Digital drywall taper demonstrates extensive prior lumbar instrumentation andanchors associated with the right proximal humerus. LUNG: No suspicious abnormality of the trachea or mainstem bronchi. Thetrachea is deviated to the left at the level of the innominate. LUNG NODULES: There are no suspicious nodules or masses. There are multiple bilateral small nodules some are solid and some aregroundglass. The largest in the posterior left upper lobe is unchanged inmeasures approximately 0.5 cm. OTHER PULMONARY: There is underlying chronic lung disease with somescattered linear and reticular opacities. There is no suspicious changein the region of the metallic sutures. There are moderate changes ofcentrilobular emphysema. There are some reticular opacities and somebandlike opacities similar to previous. No honeycomb formation. MEDIASTINUM: There are no enlarged mediastinal or hilar lymph nodes. Nosuspicious abnormalities of the esophagus. CARDIAC: No cardiac mass. No pericardial fluid. There are mild coronary calcifications. VASCULAR: There is no thoracic aortic aneurysm. The main pulmonary arteryis normal caliber PLEURA: There is no pleural fluid or pneumothorax AXILLA/CHEST WALL: There are no enlarged axillary lymph nodes. No chestwall mass demonstrated. VISUALIZED UPPER ABDOMEN: No suspicious abnormality on limited assessmentof the visualized upper abdomen. No significant change in low-densitynodular thickening of the adrenal glands. MUSCULOSKELETAL: No suspicious focal bony lesion demonstrated. IMPRESSION: Evidence of prior surgery. Scattered small nodules without significantinterval change. No new suspicious nodule or mass. LUNG RADS: Lung-RADS 2: BENIGN S Modifier (Significant or Potentially Significant Findings): Nonepresent No suspicious nonpulmonary findings. RECOMMENDATIONS: 12 month screening low dose CT -------- FINAL REPORT -------- Dictated By: Amari Blunt Dictated Date: 06/01/2025 17:50 ET Assigned Physician: Amari Blunt Reviewed and Electronically Signed By: Amari Blunt Signed Date: 06/01/2025 18:04 ET Workstation ID: [id number] Transcribed By: Self Edit Transcribed Date: 06/01/2025 17:50 ET Corin Nelosn MD [facility] CT PROCEDURES Final Result * COLONOSCOPY Anesthesia - MAC; [facility] ENDOSCOPY (05/20/2025 1:03 PM EDT) Anatomical Region Laterality Modality Endoscopy 05/20/2025 12:4 0 PM EDT Impressions 05/20/2025 1:09 PM EDT - One 4 mm polyp in the cecum, removed with a cold snare. Resected and retrieved. - The examination was otherwise normal on direct and retroflexion views. Recommendation: - Discharge patient to home. - Await pathology results. - No repeat colonoscopy due to age. Narrative 05/20/2025 1:09 PM EDT [facility] GI Patient Name: Heidy Kaminski Procedure Date: 05/20/2025 12:40 PM Date of : 1945 Age: 79 Gender: Female Note Status: Finalized Attending MD: Abram Canas MD, Procedure Date No Time: 05/20/2025 Procedure: Colonoscopy Indications: High risk colon cancer surveillance: Personal history of colonic polyps Providers: Abram Canas MD Referring MD: Abram Canas MD Medicines: Monitored Anesthesia Care Complications: No immediate complications. Estimated blood loss: Minimal. Estimated Blood Loss: Estimated blood loss was minimal. Procedure: Pre-Anesthesia Assessment: - Prior to the procedure, a History and Physical was performed, and patient medications and allergies were reviewed. The patient is competent. The risks and benefits of the procedure and the sedation options and risks were discussed with the patient. All questions were answered and informed consent was obtained. Patient identification and proposed procedure were verified by the physician, the nurse, the service desk team lead and the prosthetic lab technician in the pre-procedure area in the endoscopy suite. Mental Status Examination: alert and oriented. Airway Examination: normal oropharyngeal airway and neck mobility. Respiratory Examination: clear to auscultation. CV Examination: normal. Prophylactic Antibiotics: The patient does not require prophylactic antibiotics. Prior Anticoagulants: The patient has taken no anticoagulant or antiplatelet agents. ASA Grade Assessment: II - A patient with mild systemic disease. After reviewing the risks and benefits, the patient was deemed in satisfactory condition to undergo the procedure. The anesthesia plan was to use monitored anesthesia care (MAC). Immediately prior to administration of medications, the patient was re-assessed for adequacy to receive sedatives. The heart rate, respiratory rate, oxygen saturations, blood pressure, adequacy of pulmonary ventilation, and response to care were monitored throughout the procedure. The physical status of the patient was re-assessed after the procedure. After I obtained informed consent, the scope was passed under direct vision. Throughout the procedure, the patient's blood pressure, pulse, and oxygen saturations were monitored continuously. The Olympus Colonoscope was introduced through the anus and advanced to the cecum, identified by appendiceal orifice and ileocecal valve. The colonoscopy was performed without difficulty. The patient tolerated the procedure well. The quality of the bowel preparation was good. Findings: The perianal and digital rectal examinations were normal. A 4 mm polyp was found in the cecum. The polyp was flat. The polyp was removed with a cold snare. Resection and retrieval were complete. Estimated blood loss was minimal. The exam was otherwise without abnormality on direct and retroflexion views. Procedure Code(s): --- Professional --- 70239, Colonoscopy, flexible; with removal of tumor(s), polyp(s), or other lesion(s) by snare technique Diagnosis Code(s): --- Professional --- D12.0, Benign neoplasm of cecum CPT copyright 2020 [employer]. All rights reserved. The codes documented in this report are preliminary and upon bilingual hr generalist review may be revised to meet current compliance requirements. Abram Canas MD 05/20/2025 1:09:18 PM This report has been signed electronically.Abram Canas MD Number of Addenda: 0 Note Initiated On: 05/20/2025 12:40 PM Scope Withdrawal Time: 0 hours 12 minutes 53 seconds Scope In: 12:49:48 PM Scope Out: 1:06:44 PM Endoscopy Department at [facility] - [address] [place] [phone] Procedure Note Abram Canas MD - 05/20/2025 [facility] GI Patient Name: Heidy Kaminski Procedure Date: 05/20/2025 12:40 PM Date of : 1945 Age: 79 Gender: Female Note Status: Finalized Attending MD: Abram Canas MD, Procedure Date No Time: 05/20/2025 Procedure: Colonoscopy Indications: High risk colon cancer surveillance: Personalhistory of colonic polyps Providers: Abram Canas MD Referring MD: Abram Canas MD Medicines: Monitored Anesthesia Care Complications: No immediate complications. Estimated blood loss: Minimal. Estimated Blood Loss: Estimated blood loss was minimal. Procedure: Pre-Anesthesia Assessment: - Prior to the procedure, a History and Physicalwas performed, and patient medications and allergieswere reviewed. The patient is competent. The risks and benefits of the procedure and the sedation optionsand risks were discussed with the patient. Allquestions were answered and informed consent was obtained. Patient identification and proposed procedure were verified by the physician, the nurse, theanesthetist and the prosthetic lab technician in the pre-procedure area in the endoscopy suite. Mental Status Examination: alertand oriented. Airway Examination: normal oropharyngeal airway and neck mobility. Respiratory Examination: clear to auscultation. CV Examination: normal. Prophylactic Antibiotics: The patient does notrequire prophylactic antibiotics. Prior Anticoagulants: The patient has taken no anticoagulant or antiplatelet agents. ASA Grade Assessment: II - A patient withmild systemic disease. After reviewing the risks and benefits, the patient was deemed in satisfactory condition to undergo the procedure. The anesthesia plan was to use monitored anesthesia care (MAC). Immediately prior to administration of medications, the patient was re-assessed for adequacy to receive sedatives. The heart rate, respiratory rate, oxygen saturations, blood pressure, adequacy of pulmonary ventilation, and response to care were monitored throughout the procedure. The physical status ofthe patient was re-assessed after the procedure. After I obtained informed consent, the scope was passed under direct vision. Throughout theprocedure, the patient's blood pressure, pulse, and oxygen saturations were monitored continuously. TheOlympus Colonoscope was introduced through the anus and advanced to the cecum, identified by appendiceal orifice and ileocecal valve. The colonoscopy was performed without difficulty. The patient tolerated the procedure well. The quality of the bowel preparation was good. Findings: The perianal and digital rectal examinations were normal. A 4 mm polyp was found in the cecum. The polyp was flat. The polyp was removed with a cold snare. Resection and retrieval were complete. Estimatedblood loss was minimal. The exam was otherwise without abnormality ondirect and retroflexion views. Procedure Code(s): --- Professional --- 02480, Colonoscopy, flexible; with removal of tumor(s), polyp(s), or other lesion(s) by snare technique Diagnosis Code(s): --- Professional --- D12.0, Benign neoplasm of cecum CPT copyright 2020 [employer]. All rights reserved. The codes documented in this report are preliminary and upon bilingual hr generalist reviewmay be revised to meet current compliance requirements. Abram Canas MD 05/20/2025 1:09:18 PM This report has been signed electronically.Abram Canas MD Number of Addenda: 0 Note Initiated On: 05/20/2025 12:40 PM Scope Withdrawal Time: 0 hours 12 minutes 53 seconds Scope In: 12:49:48 PM Scope Out: 1:06:44 PM Endoscopy Department at [facility] - [address] [place] [phone] IMPRESSION: - One 4 mm polyp in the cecum, removed with a cold snare. Resected and retrieved. - The examination was otherwise normal on directand retroflexion views. Recommendation: - Discharge patient to home. - Await pathology results. - No repeat colonoscopy due to age. us Abram Canas MD GI~PROCEDURE ORDERABLES Fin al Result * Tissue exam (05/20/2025 12:54 PM EDT) Final Diagnosis Cecum, polyp: Tubular adenoma. 05/23/2025 10:45 AM EDT [facility] Gross Description A. Large Intestine, Cecum, polyp x1: Labeled polyp x 1 colon Cecum . Received in formalin are two soft, flores-pink polypoid tissues measuring 0.15 cm and 0.6 cm in greatest diameter admixed with fecal/food debris, which are inked black at the base, wrapped in paper and submitted in toto in one cassette, two pieces, multiple levels. TS 05/23/2025 10:45 AM EDT [facility] Disclaimer Unless otherwise specified, all tissue is 10% NB formalin fixed and paraffin embedded. 05/23/2025 10:45 AM EDT [facility] Tissue Cecum structure / Unknown 05/20/2025 12:54 PM EDT 05/20/2025 3:01 PM EDT us Abram Canas MD LAB PATHOLOGY ORDERABLES Fi nal Result [facility] [address] [place] [address], * (ABNORMAL) CBC auto differential (05/02/2025 11:03 AM EDT) WBC 7.4 4.8 - 10.8 K/mcL LAB HEMETOLOGY METHOD 05/02/2025 1:33 PM EDT [facility] RBC 5.00(H) 3.80 - 4.80 M/mcL LAB HEMETOLOGY METHOD 05/02/2025 1:33 PM EDT [facility] Hemoglobin 13.2 11.5 - 16.0 g/dL LAB HEMETOLOGY METHOD 05/02/2025 1:33 PM EDT [facility] Hematocrit 41.8 35.0 - 47.0 % LAB HEMETOLOGY METHOD 05/02/2025 1:33 PM EDT [facility] MCV 84.3 79.0 - 98.0 FL LAB HEMETOLOGY METHOD 05/02/2025 1:33 PM EDT [facility] MCH 26.6(L) 27.0 - 32.0 pcg LAB HEMETOLOGY METHOD 05/02/2025 1:33 PM EDT [facility] MCHC 31.6(L) 32.0 - 37.0 g/dL LAB HEMETOLOGY METHOD 05/02/2025 1:33 PM EDT [facility] RDW 16.5(H) 11.0 - 15.0 % LAB HEMETOLOGY METHOD 05/02/2025 1:33 PM [facility] Platelets 235 130 - 400 K/mcL LAB HEMETOLOGY METHOD 05/02/2025 1:33 PM [facility] MPV 11.8(H) 7.0 - 11.0 FL LAB HEMETOLOGY METHOD 05/02/2025 1:33 PM [facility] NRBC 0.0 <1.0 % LAB HEMETOLOGY METHOD 05/02/2025 1:33 PM [facility] NRBC Absolute 0.00 <0.10 K/mcL LAB HEMETOLOGY METHOD 05/02/2025 1:33 PM [facility] Neutrophils Relative 54.7 % LAB HEMETOLOGY METHOD 05/02/2025 1:33 PM [facility] Lymphocytes Relative 35.4 % LAB HEMETOLOGY METHOD 05/02/2025 1:33 PM [facility] Monocytes Relative 8.2 % LAB HEMETOLOGY METHOD 05/02/2025 1:33 PM [facility] Eosinophils Relative 1.0 % LAB HEMETOLOGY METHOD 05/02/2025 1:33 PM [facility] Basophils Relative 0.3 % LAB HEMETOLOGY METHOD 05/02/2025 1:33 PM [facility] Immature Granulocytes Relative 0.4 % LAB HEMETOLOGY METHOD 05/02/2025 1:33 PM [facility] Neutrophils Absolute 4.03 1.50 - 7.00 K/mcL LAB HEMETOLOGY METHOD 05/02/2025 1:33 PM [facility] Lymphocytes Absolute 2.60 1.00 - 5.00 K/mcL LAB HEMETOLOGY METHOD 05/02/2025 1:33 PM [facility] Monocytes Absolute 0.60 0.20 - 1.00 K/mcL LAB HEMETOLOGY METHOD 05/02/2025 1:33 PM EDT [facility] Eosinophils Absolute 0.07 0.00 - 0.50 K/mcL LAB HEMETOLOGY METHOD 05/02/2025 1:33 PM EDT [facility] Basophils Absolute 0.02 0.00 - 0.20 K/mcL LAB HEMETOLOGY METHOD 05/02/2025 1:33 PM EDT [facility] Immature Granulocytes Absolute 0.03 0.00 - 0.03 K/mcL LAB HEMETOLOGY METHOD 05/02/2025 1:33 PM EDT [facility] Blood Venous blood specimen / Unknown Venipuncture / Unknown 05/02/2025 11:03 AM EDT 05/02/2025 12:40 PM EDT [facility]AG[facility] LAB BLOOD ORDERABLES Final Result Performing Organization Address City/[facility]/ZIP Co de Phone Number [facility] [address] [place] [address], [place] [phone] * Thyroid stimulating hormone (05/02/2025 11:03 AM EDT) TSH 1.02 0.40 - 4.00 mcIU/mL LAB CHEMISTRY METHOD 05/02/2025 3:31 PM EDT [facility] Blood Venous blood specimen / Unknown Venipuncture / Unknown 05/02/2025 11:03 AM EDT 05/02/2025 12:42 PM EDT Carolina YEAGER LAB BLOOD ORDERABLES Final Result [facility] [address] [place] [address], [place] [phone] * Thyroxine free (05/02/2025 11:03 AM EDT) Free T4 1.25 0.70 - 1.80 ng/dL LAB CHEMISTRY METHOD 05/02/2025 3:31 PM EDT [facility] Blood Venous blood specimen / Unknown Venipuncture / Unknown 05/02/2025 11:03 AM EDT 05/02/2025 12:42 PM EDT Carolina YEAGER LAB BLOOD ORDERABLES Final Result [facility] [address] [place] [address], * (ABNORMAL) Comprehensive metabolic panel (05/02/2025 11:03 AM EDT) Sodium 139 133 - 145 mmol/L LAB CHEMISTRY METHOD 05/02/2025 2:58 PM [facility] Potassium 3.4(L) 3.5 - 5.5 mmol/L LAB CHEMISTRY METHOD 05/02/2025 2:58 PM [facility] Chloride 102 96 - 110 mmol/L LAB CHEMISTRY METHOD 05/02/2025 2:58 PM [facility] CO2 28 21 - 32 mmol/L LAB CHEMISTRY METHOD 05/02/2025 2:58 PM [facility] Anion Gap 9 3 - 11 LAB CHEMISTRY METHOD 05/02/2025 2:58 PM [facility] Glucose 77 70 - 100 mg/dL LAB CHEMISTRY METHOD 05/02/2025 2:58 PM [facility] BUN 10 5 - 25 mg/dL LAB CHEMISTRY METHOD 05/02/2025 2:58 PM [facility] Creatinine 1.25(H) 0.50 - 1.10 mg/dL LAB CHEMISTRY METHOD 05/02/2025 2:58 PM [facility] eGFR 44(L) >=60 mL/min/1. 73m2 LAB CHEMISTRY METHOD 05/02/2025 2:58 PM [facility] Comment:Calculation based on the Chronic Kidney Disease Epidemiology Collaboration (CKD-EPI) equation refit without adjustment for race. BUN/Creatinine Ratio 8.0 LAB CHEMISTRY METHOD 05/02/2025 2:58 PM EDT [facility] Calcium 9.8 8.5 - 10.5 mg/dL LAB CHEMISTRY METHOD 05/02/2025 2:58 PM EDT [facility] AST (SGOT) 11 10 - 42 unit/L LAB CHEMISTRY METHOD 05/02/2025 2:58 PM EDT [facility] ALT (SGPT) 23 10 - 60 unit/L LAB CHEMISTRY METHOD 05/02/2025 2:58 PM T [facility] Alkaline Phosphatase 100 42 - 121 unit/L LAB CHEMISTRY METHOD 05/02/2025 2:58 PM [facility] Total Protein 7.6 6.0 - 8.0 g/dL LAB CHEMISTRY METHOD 05/02/2025 2:58 PM EDT [facility] Albumin 4.1 3.2 - 5.0 g/dL LAB CHEMISTRY METHOD 05/02/2025 2:58 PM [facility] Total Bilirubin 0.4 0.0 - 1.4 mg/dL LAB CHEMISTRY METHOD 05/02/2025 2:58 PM T [facility] Blood Venous blood specimen / Unknown Venipuncture / Unknown 05/02/2025 11:03 AM EDT 05/02/2025 12:42 PM EDT us Carolina YEAGER LAB BLOOD ORDERABLES Final Result [facility] [address] [place] [address], * (ABNORMAL) Lipid panel with reflex to direct LDL (12/23/2024 11:37 AM EDT) Cholesterol 203(H) 0 - 200 mg/dL LAB CHEMISTRY METHOD 12/23/2024 2:02 PM EDT [facility] Triglycerides 96 0 - 150 mg/dL LAB CHEMISTRY METHOD 12/23/2024 2:02 PM EDT [facility] HDL 91 >=40 mg/dL LAB CHEMISTRY METHOD 12/23/2024 2:02 PM EDT [facility] LDL Calculated 93 0 - 100 mg/dL LAB CHEMISTRY METHOD 12/23/2024 2:02 PM EDT [facility] VLDL Cholesterol Mars 19.2 mg/dL LAB CHEMISTRY METHOD 12/23/2024 2:02 PM EDT [facility] Non HDL Chol. (LDL+VLDL) 112 <145 mg/dL LAB CHEMISTRY METHOD 12/23/2024 2:02 PM EDT [facility] Chol/HDL Ratio 2.2 0.0 - 4.4 LAB CHEMISTRY METHOD 12/23/2024 2:02 PM EDT [facility] Blood Venous blood specimen / Unknown Venipuncture / Unknown 12/23/2024 11:37 AM EDT 12/23/2024 12:47 PM EDT Jeremy YEAGER LAB BLOOD ORDERABLES Final Res ult [facility] [address] [place] [address], * Hemoglobin A1c (12/23/2024 11:37 AM EDT) Hemoglobin A1C 6.3 <6.5 % LAB CHEMISTRY METHOD 12/23/2024 3:16 PM EDT [facility] Mean Bld Glu Estim. 134 mg/dL LAB CHEMISTRY METHOD 12/23/2024 3:16 PM EDT [facility] Blood Venous blood specimen / Unknown Venipuncture / Unknown 12/23/2024 11:37 AM EDT 12/23/2024 12:43 PM EDT us Jeremy YEAGER LAB BLOOD ORDERABLES Final Res ult [facility] [address] [place] [address], * GENEVA SCREENING DIGITAL (11/24/2022 4:36 PM EST) Anatomical Region Laterality Modality Mammography 11/21/2022 9:59 AM EST Narrative 11/24/2022 4:36 PM EST [facility] Diagnostic Imaging Department [address] [place] [address] Patient: HEIDY KAMINSKI/Age/Sex: 1945 - 76 - F Unit#: [id number] Location/Status: SPDIMAM/PRE CLI Mnemonic/Ordering Site: [facility] Ordering Physician: GISELLA JEAN MD [place] Screening Digital - 11/23/22 - 1006 EXAM: [place] Screening Digital EXAM DATE AND TIME: 11/23/2022 10:07 AM HISTORY: Screening. Right breast biopsy in 2010, pathology benign. Maternal aunt had breast carcinoma. COMPARISON: 11/17/21, 11/11/20, 09/18/19 TECHNIQUE: CC and MLO views of both breasts were obtained using full field digital mammography. Bilateral digital breast tomosynthesis was performed in the MLO projection. Computer aided detection with [employer] 7.2-H and [employer] 3D 3.1 was employed. TISSUE DENSITY: a. The breasts are almost entirely fatty. FINDINGS: No suspicious masses, grouped microcalcifications, or areas of architectural distortion are seen. Skin and vascular calcifications are again seen. IMPRESSION: Stable mammographic appearance of the breasts. No evidence of malignancy is seen. A negative mammogram in the presence of a clinically suspicious palpable abnormality does not preclude the possibility of malignancy or alter the indications for biopsy. BI-RADS: Category 2: Benign RECOMMENDATION(S): 1: Routine screening mammogram BILATERAL in 1 year. [address]36, 25412 3342F, 7025F Dictating Physician: ADORE CASTILLO MD Electronically Signed by: ADORE CASTILLO MD Dic Date/Time: 11/24/221634 Sign date/Time: 11/24/221635 Procedure Note Adore Castillo MD - 11/14/2023 [facility] Diagnostic Imaging Department [address] [place] [address] Patient: NINAHEIDY D.O.B./Age/Sex: 1945 - 76 - F Unit#: [id number] Location/Status: SPDIMAM/PRE CLI Mnemonic/Ordering Site: [facility] Ordering Physician: GISELLA JEAN MD [facility] Screening Digital - 11/23/22 - 1006 EXAM: [facility] Screening Digital EXAM DATE AND TIME: 11/23/2022 10:07 AM HISTORY: Screening. Right breast biopsy in 2010, pathology benign.Maternal aunt had breast carcinoma. COMPARISON: 11/17/21, 11/11/20, 09/18/19 TECHNIQUE: CC and MLO views of both breasts were obtained using fullfield digital mammography. Bilateral digital breast tomosynthesis was performedin the MLO projection. Computer aided detection with iCAD DropShipLook 7.2-H andiCAD LookBooker 3D 3.1 was employed. TISSUE DENSITY: a. The breasts are almost entirely fatty. FINDINGS: No suspicious masses, grouped microcalcifications, or areas ofarchitectural distortion are seen. Skin and vascular calcifications are again seen. IMPRESSION: Stable mammographic appearance of the breasts. No evidence of malignancyis seen. A negative mammogram in the presence of a clinically suspicious palpable abnormality does not preclude the possibility of malignancy or alter the indications for biopsy. BI-RADS: Category 2: Benign RECOMMENDATION(S): 1: Routine screening mammogram BILATERAL in 1 year. 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 Health Care Decision (hx) 01/03/2015 AD BOYD DIRECTIVE Health Care Decision (hx) 01/03/2015 AD BOYD DIRECTIVE Health Care Decision (hx) 01/03/2015 AD BOYD DIRECTIVE Health Care Decision (hx) 01/03/2015 AD BOYD DIRECTIVE Health Care Decision (hx) 01/03/2015 AD BOYD DIRECTIVE Health Care Decision (hx) 01/03/2015 AD BOYD DIRECTIVE Health Care Decision (hx) 01/03/2015 AD BOYD DIRECTIVE Health Care Decision (hx) 01/03/2015 AD BOYD DIRECTIVE Health Care Decision (hx) 01/03/2015 AD BOYD DIRECTIVE Health Care Decision (hx) 01/03/2015 AD BOYD DIRECTIVE Health Care Decision (hx) 01/03/2015 AD BOYD DIRECTIVE Health Care Decision (hx) 01/03/2015 AD BOYD DIRECTIVE Health Care Decision (hx) 01/03/2015 AD BOYD DIRECTIVE Health Care Decision (hx) 01/03/2015 AD BOYD DIRECTIVE Health Care Decision (hx) 01/03/2015 AD BOYD DIRECTIVE Health Care Decision (hx) 01/03/2015 AD BOYD DIRECTIVE Health Care Decision (hx) 01/03/2015 AD BOYD DIRECTIVE Health Care Decision (hx) 01/03/2015 AD BOYD DIRECTIVE 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
--- OUTSIDE RECORDS SUMMARY | 2025-07-07 12:16 | XMS_ITS | Patient Health Record ---
Author Organization [facility] [place] Address [address] [place] [address] Care Team Providers Care Networks Software Consultant Name Role Phone Jeremy Mcgee Unavailable [phone] Migration, Provider Unavailable Unavailable Carolina Franco Unavailable [phone] Allergies Allergen (clinical drug ingredient) Drug/Non Drug Allergy documented on EMR Reaction Allergy Type Onset Date Status ciprofloxacin Cipro hives Drug Allergy Act ivania Reason For Referral No Information Medications Medication SIG (Take, Route, Frequency, Duration) Notes Start Date End Date Status Fluticasone Propionate 50 MCG/ACT Suspension 1 spray in each nostril Nasally Twice a day Active Levothyroxine Sodium 50 MCG Tablet 1 tablet in the morning on an empty stomach Orally Once a day Active Omeprazole 20 MG Capsule Delayed Release 1 capsule 1/2 to 1 hour before morning meal Orally Once a day Active Celecoxib 50 MG Capsule 1 capsule Orally Once a day; Duration: 3 days As needed 05/24/2025 Active Breo Ellipta 100-25 MCG/ACT Aerosol Powder Breath Activated 1 puff Inhalation Once a day Active Lisinopril-hydroCHLOROthiazi de 10-12.5 MG Tablet 1 tablet Orally Once a day; Duration: 90 days Active CeleBREX 400 MG Capsule as directed Orally As needed Active Vitamin D 25 MCG (1000 UT) Tablet 1 tablet Orally Once a day Active Social History Section Notes: DENIES SMOKING DENIES ALCOHOL CAFFEEINE-2 LITERS COKE DAILY Vital Signs Heart Rate 77 /min 05/24/2025 Temperature 98.2 degrees Fahrenheit 05/24/2025 Respiratory Rate 20 /min 05/24/2025 Height-cm 160.02 cm 05/24/2025 Oximetry 98 % 05/24/2025 Blood pressure diastolic 80 mm Hg 05/24/2025 Weight-kg 76.2 kg 05/24/2025 Height 63 in 05/24/2025 Blood pressure systolic 138 mm Hg 05/24/2025 Weight 168 lbs 05/24/2025 BMI 29.76 kg/m2 05/24/2025 Encounters Encounter Location Date Provider Diagnosis [facility] [place] [address] [place] [phone] 08/02/2024 Provider Migration [facility] [place] [address] [place] [phone] 11/25/2024 Provider Migration [facility] [place] [address] [place] [phone] 12/23/2024 Provider Migration [facility] [place] [address] [place] [phone] 12/23/2024 Jeremy Mcgee [facility] [place] [address] [place] [phone] 05/02/2025 Carolina Joan [facility] [place] [address] [place] [phone] 05/24/2025 Carolinaher Franco Right foot pain M79.671 [facility] [place] [address] [place] [phone] 05/25/2025 Carolina Sagsmith Assessments Encounter Date Diagnosis (ICD Code) Assessment Notes Treatment Notes Treatment Clinical Notes Section Notes 05/24/2025 Right foot pain (ICD-10 - M79.671) Plan Of Treatment Next Appt Details Provider Name:Carolina Franco, 08/01/2025 10:45:00 AM, [address], [address] [facility], [place], [phone], [phone] Insurance Providers Payer Name Payer Address Payer Phone Subscriber Number Group Number Insured Name Patient Relationship to Insured Coverage Start Date Coverage End Date [employer] [address] [place] [phone] [id number] HEIDY WOOD Self - patient is the insured [facility] [address] [place] [address] [id number] HEIDY WOOD Self - patient is the insured Medical (General) History Medical History History ICD Code GI-DR RICHARD REILLY-ENDOCRINOLOGY UROLOGY PULMONOLOGY-DR FLEMING Surgical History Surgery Date(Month/Year) LUMBAR 04/30 ROTATOR CUFF RIGHT 04/03 Hospitalization History Reason Date(Month/Year) FELL 12/07
--- OUTSIDE RECORDS SUMMARY | 2025-07-07 12:16 | XMS_ITS | Continuity of Care Document ---
Author Organization [facility] [address] [place] [address] Phone [phone] Care Team Providers Care Raw Material Planner Name Role Phone Carlos Velasquez M.D. Care Team Information Receive r [phone] Everardo YEAGER Care Team Information Receiv er [phone] Problems Active Problems Provider Date Hypothyroidism Ziggy Calderon M.D. Onset: 0 10/23/2023 Multinodular goiter Ziggy Calderon M.D. Onse t: 10/23/2023 Asthma Ziggy Calderon M.D. Onset: 0 10/23/2023 Essential hypertension Ziggy Calderon M.D. O nset: 10/23/2023 Gastroesophageal reflux disease Ziggy marcum M.D. Onset: 10/23/2023 Hypercholesterolemia Ziggy Calderon M.D. Ons et: 10/23/2023 Social History Type Date Description Comments Sex Female Sex Unknown Lives With Alone ETOH Use Denies alcohol use Tobacco Use Start: Unknown End: Unknown Patient is a former smoker Allergies and adverse reactions Active Allergies Criticality Reaction Severity Comments Date Cipro Unable to assess criticality 10/23/2023 Medications Active Medications SIG Qnty Indications Order ing Provider Date Levothyroxine [id number] Tablets Take 1 Tablet By Mouth Every Day 90tabs Ziggy Calderon M.D. 04/27/2024 Breo [id number]/Act Aerosol Inhale 1 puff Into The Lungs Daily For 30 Days. Tereza Slaughter MD Wlkppjjjlct62xn Tablets Take 1 Tablet By Mouth Every Day Carlos Velasquez M.D. Lisinopril-Hydrochloro wxvqqvju91-91.5mg Tablets Take 1 Tablet By Mouth Every Day Carlos Velasquez M.D. Albuterol Sulfate IVE759(90Base) mcg/Act Aerosol Inhale 2 Puffs Into The Lungs Every 4 Hours as Needed For Wheezing For Up To 30 Tereza Slaughter MD Roucmchamd79by Capsules DR Take 1 Capsule By Mouth Every Day Carlos Velasquez M.D. Potassium Nszbfshm23Crg Packet Dissolve 1 Packet as Directed Once A Day Carlos Velasquez M.D. Fluticasone Ssuqylhmol36frl/Act Suspension [place] 2 Sprays Into Both Nostrils Twice A Day as Needed Carlos Velasquez M.D. Vital Signs Date Vital Result Comment 01/26/2025 10:03am BP Systolic 110 mmHg BP Diastolic 77 mmHg Heart Rate 72 /min Height 63.5 inches 5'3.50 Weight 161.12 lb BMI (Body Mass Index) 28.1 kg/m2 Results Test Acquired Date Facility Test Result H/L Range N ote TSH Rfx on Abnormal to Free T4 01/26/2025 [facility] TSH Rfx on Abnormal to Free T4 1.400 uIU/mL 0.450-4.50 0 TSH Rfx on Abnormal to Free T4 04/26/2024 [facility] TSH Rfx on Abnormal to Free T4 1.580 uIU/mL 0.450-4.50 0 TSH With Reflex To FT4 10/23/2023 [facility] TSH With Reflex To FT4 1.03 uIU/mL (0.4-4.2) Medical Devices Description No Information Available Encounters Type Date Location Provider Dx Diagnosis Office Visit 01/26/2025 10:00a Main Office Ziggy Calderon M.D. E03.9 Hypothyroidism, unspecified Assessments Date Code Description Provider 01/26/2025 E03.9 Hypothyroidism, unspecified Ziggy Calderon M.D. Plan of Treatment Future Appointment(s):* 01/26/2026 10:00 am - Ziggy Calderon M.D. at Main Office 01/26/2025 - Ziggy Calderon M.D.* E03.9 Hypothyroidism, unspecified Functional Status Description No Information Available Mental Status Description No Information Available Referrals Description No Information Available
--- OUTSIDE RECORDS SUMMARY | 2025-07-07 12:16 | XMS_ITS ---
Author Name [facility] Organization Unknown History of Medication Use Medication Directions Dispensed Refills Start Date End Date Stat us Flowflex COVID-19 Antigen Home Test kit REFER TO PRODUCT APPLICATIONS SCIENTIST INSTUCTIONS INCLUDED IN PACKAGING 02/07/2023 completed Breo Ellipta 200 mcg-25 mcg/dose powder for inhalation INHALE 1 PUFF INTO THE LUNGS DAILY FOR 30 DAYS. active doxycycline hyclate 100 mg tablet 1 TABLET TWICE A DAY active duloxetine 20 mg capsule,delayed release TAKE 1 CAPSULE BY MOUTH EVERY DAY active lisinopril 10 mg-hydrochlorothia zide 12.5 mg tablet TAKE 1 TABLET BY MOUTH EVERY DAY active prednisone 20 mg tablet TAKE 1 TABLET BY MOUTH TWICE A DAY active simvastatin 20 mg tablet TAKE 1 TABLET BY MOUTH EVERY DAY active Allergies Allergen Reaction Severity Comment Documented Date Source Statu s CIPRO E[facility] Problems Problem Status Onset Date Problem Type Date of Resoluti on Source Impingement syndrome of left shoulder region active 2023-12-02 ProblemAct [facility] ECT Full thickness rotator cuff tear active 2023-12-11 ProblemAct [facility] Left os acromiale active 2023-12-11 ProblemAct [facility] Shoulder girdle weakness active 2023-12-02 ProblemAct [facility] Encounters Encounter Type Encounter Reason Primary Diagnosis Location Date [facility]24 Ambulatory [facility] [place] 01/11/2024 Ambulatory [facility] 12/08/2023 Ambulatory [facility] [place] 11/27/2023 Ambulatory [facility] [place] 04/16/2023 Ambulatory [facility] [place] 03/24/2023 Ambulatory [facility] [place] 02/07/2023 Ambulatory [facility] [place] 02/07/2023 Ambulatory [facility] [place] 02/06/2023 Ambulatory [facility] [place] 02/03/2023 Care Team Organization Name Specialty Phone Email Start Date End [facility] 02/05/2025 [facility] 11/14/2024 [facility]29[facility]/12/2022 05/31/20 [facility] 08/20/2022
--- OUTSIDE RECORDS SUMMARY | 2025-07-07 12:16 | XMS_ITS | Clinical Summary ---
Author Organization [facility] Address [address] [place] [address] Care Team Providers Care Criminal Legal Assistant Name Role Phone Carlos Velasquez MD Primary Care Provider [phone] Allergies Active Allergy Reactions Criticality Noted Date Comments Amoxicillin-Pot Clavulanate 01/03/20 22 Ciprofloxacin 04/29/2018 Other reaction(s): OTHER, rash Intravenous causes redness Of the arm she Had the IV in Prednisone 01/02/2022 Medications Medication Sig Dispensed Refills Start Date End Date Status albuterol 108 (90 Base) MCG/ACT inhaler Inhale 2 puffs into the lungs. 0 07/25/2011 Active Calcium 600 MG tablet Take by mouth. 0 Active Calcium Carbonate-Vitamin D 600-200 MG-UNIT TABS Take by mouth. 0 07/25/2011 Active Cholecalciferol 25 MCG (1000 UT) tablet Take by mouth. 0 Active citalopram (CeleXA) 10 MG tablet Take 10 mg by mouth. 0 08/17/2019 Acti ve fluticasone (FLONASE) 50 MCG/ACT nasal spray spray or apply 2 sprays inside Nose. 0 Active lisinopril-hydroCH LOROthiazide (PRINZIDE,ZESTORET IC) tablet 10-12.5 mg Take 1 tablet by mouth daily. 0 08/17/2019 Active omeprazole (PriLOSEC) 20 MG capsule Take 20 mg by mouth daily. 0 10/28/2021 Active omeprazole (PriLOSEC OTC) 20 MG tablet Take by mouth. 0 Active simvastatin (ZOCOR) tablet 20 mg Take 20 mg by mouth. 0 Acti ve potassium chloride (KLOR-CON) 20 MEQ packet Take 20 mEq by mouth. 0 Active tiZANidine (ZANAFLEX) 2 MG tablet Take 2 mg by mouth. 0 Activ e tiZANidine (ZANAFLEX) 4 MG capsule Take 8 mg by mouth. 0 08/17/2019 Activ e oxyCODONE (ROXICODONE) 5 MG immediate release tablet Take 1-2 tabs every 4 hours as needed for pain following your right shoulder surgery 40 tablet 0 03/12/2022 Active sulfamethoxazole-t rimethoprim (Bactrim DS) 800-160 MG per tablet Take 1 tablet (160 mg of trimethoprim total) by mouth 2 (two) times a day. 14 tablet 0 05/10/2022 Active Advair Diskus 250-50 MCG/DOSE DISKUS INHALE 1 PUFF INTO THE LUNGS EVERY 12 HOURS FOR 30 DAYS. 0 05/04/2022 Active traMADol (ULTRAM) 50 MG tablet Take 1 tab every 8 hours as needed for pain 60 tablet 0 05/28/2022 Active Active Problems No known active problems Family History Medical History Relation Name Comments Hypertension Brother Cancer Father Hypertension Father Hyperlipidemia Mother Hypertension Mother Relation Name Status Comments Brother Father Mother Social History Tobacco Use Types Packs/Day Years Used Date Smoking Tobacco: Former Cigarettes 2 - 2013 Smokeless Tobacco: Never Alcohol Use Standard Drinks/Week Comments Not Currently 0 (1 standard drink = 0.6 oz pur e alcohol) Sex and Gender Information Value Date Recorded Sex Assigned at Not on file Gender Identity Not on file Sexual Orientation Not on file Job Start Date Occupation Industry Not on file Not on file Not on file Last Filed Vital Signs Vital Sign Reading Time Taken Comments Blood Pressure - - Pulse - - Temperature - - Respiratory Rate - - Oxygen Saturation - - Inhaled Oxygen Concentration - - Weight 72.6 kg (160 lb) 03/12/2022 9:28 AM EDT Height 162.6 cm (5' 4 ) 03/12/2022 9:28 AM EDT Body Mass Index 27.46 03/12/2022 9:28 AM EDT Plan of Treatment Health Maintenance Due Date Last Done Comments Hepatitis C Screening 1945 COVID-19 Vaccine (#1) 06/13/1946 Depression Screening 1959 Preventative Health Evaluation 12/11/1965 Shingrix-Zoster Vaccine (1 of 2) 12/11/1997 Fall Risk Assessment 12/11/2012 Osteoporosis Screening (DEXA Scan) 12/11/2012 Pneumococcal Vaccine (2 of 2 - PCV) 12/11/2012 07/03/2010 RSV Adult > 60+ Yrs or Pregn ant (1 - 1-dose 75+ series) 12/11/2022 Influenza Vaccine (#1) 2025 07/13/2019 DTap / Tdap / Td (2 - Td or Tdap) 01/10/2026 016 Hepatitis B Vaccines Aged Out No long er eligible based on patient's age to complete this topic RSV Ped < 20 months Aged Out No longe r eligible based on patient's age to complete this topic Care Teams Criminal Legal Assistant Relationship Specialty Start Date End Date Carlos Velasquez MD [address] [place] [address] PCP - General Internal Medicine 12/25/21
== END 2025-07-07 11:08 | disposition home or self-care (01) ==
LOC: HO.HSMS 10:07
PROVIDERS: PCP Internal Medicine; Visit Provider Physician Assistant Medical
DX: G47.33 Obstructive sleep apnea (adult) (pediatric) (principal); Z99.89 Dependence on other enabling machines and devices; H81.93 Unspecified disorder of vestibular function, bilateral; D51.0 Vitamin B12 deficiency anemia due to intrinsic factor deficiency; R53.83 Other fatigue; R26.89 Other abnormalities of gait and mobility; S09.90XS Unspecified injury of head, sequela; G47.10 Hypersomnia, unspecified
CPT/HCPCS: 99214

== ENCOUNTER → 2025-07-07 10:07 | Outpatient (BNVA) | payer MEDICARE, OTHER, SELFPAY | PROVIDERS: PCP Internal Medicine; Visit Provider Physician Assistant Medical | DX: G47.33 Obstructive sleep apnea (adult) (pediatric) (principal); Z99.89 Dependence on other enabling machines and devices; H81.93 Unspecified disorder of vestibular function, bilateral; R60.9 Edema, unspecified; R53.83 Other fatigue; G47.10 Hypersomnia, unspecified; J44.9 Chronic obstructive pulmonary disease, unspecified; Z87.891 Personal history of nicotine dependence; D51.0 Vitamin B12 deficiency anemia due to intrinsic factor deficiency; R26.89 Other abnormalities of gait and mobility; S09.90XS Unspecified injury of head, sequela | CPT/HCPCS: 99212 ==

== ENCOUNTER 2025-08-29 09:53 | Outpatient (RCR) | payer MEDICARE, OTHER, SELFPAY ==
--- NOTE | 2025-08-10 14:34 | MHC.PT.EP ---
[facility] [place] Office [place] Office [place] Office [address] Niyah Soto [address] [phone] F: [phone] F: [phone] F: [phone] F: [phone] Physical Therapy Plan of Care Date of Evaluation: 08/10/25 Date of Surgery: Diagnosis: norma, start B12 daily 1000mcg po sublingual disintegrating tablets. PSG to evaluate, Continue use of Bipap, with 2 liters of o2 at night daily and for >4 hours a night. will assess with psg as pt has not had a psg in over 10years. PT Gait and Balance Difficulty Orders: Orders PT Evaluation and Treatment 07/07/25 H81.90 - Unspecified disorder of vestibular function, unspecified ear, M54.32 - Sciatica, left side RT PSG in-lab sleep study 07/07/25 G47.10 - Hypersomnia, unspecified, G47.33 - Obstructive sleep apnea (adult) (pediatric), Z99.89 - Dependence on other enabling machines and devices Medications: New mecobalamin (vitamin B12) place tablet under tongue and allow to dissolve for at least30 secs before swallowing 1,000 mcg sublingual BEDTIME 90 tabs 3RF low b12 3 months MDD 1000mcg D51.9 - Vitamin B12 deficiency anemia, unspecified Coding Level of Care Code Est Pt Level 4 (59573) Diagnoses DIONICIO on CPAP G47.33; Z99.89 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 Pt notes history of TIA >5 years ago, notes being found on the floor on another occasion by her son with her oxygen in the 80s> hospitalization> notes was on oxygen for two years following this incident. She provides a distorted history, exhibits impaired lower extremity strength, impaired static and dynamic balance, decreased core and hip strength and significant callusing on her R>L foot. She presents to the office without AD, notes leaving her cane in the car. 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 She verbalized she is overwhelmed by her medical appts and is noted to mention stress re: her adult son who has autism who lives in first floor of her two story home. She admits to receiving care from senior services for assistance with bathing in a claw foot tub. Pt would benefit from attending skilled PT services at a frequency of 1-2x/week to address impairments, implement HEP, and restore functional mobility tolerance to maximize safety and reduce risk of falls. She states she does not currently exercise. She reports parathesias in her R LE, notes history of lumbar fusion, admits history of fecal incontinence (states was seen by GI office for workup yesterday and she states they were questioning sphincter control> with possible referral to pelvic floor PT). She reports history of fecal incontinence about one year after her back surgery, later resolving and then coming back again. Upon inspection and screening of her feet, I feel she would benefit from a consult with podiatry to address her calluses and specific needs requested for possible custom orthotics/toe support/padding/ footwear. Rehab prognosis is fair<>good based on interaction with patient, compliance for HEP, overall health status, chronicity of sx. Frequency and Duration: The patient will be seen 1-2x/week Short Term Goals: 1. Pt will initiate self-care/ HEP program. 2. Pt will demonstrate SLR into flexion with good eccentric control. 3. Pt will demonstrate hip abd to 4+/5 L>R and R>L. 4. Pt will demonstrate improved ankle flexibility for ambulation. Senior Integration Developer Goals: 1. I HEP with good body mechanics. 2. Strength hip abd 5/5. 3. Negotiate a few 6 inch steps with good dynamic balance and use of least restrictive AD with railing. 4. SLR 5/5 on L>R LE. Treatment Plan: Modalities to reduce pain, spasms and effusion. Manual therapy to restore motion and function. Therapeutic exercise to improve strength and flexibility. Neuromuscular re-education for posture and balance. Therapeutic activities to return to functional activities of daily living. Electronically signed by: Raisa Perea, PT, DPT Please sign and return to therapist. Thank you for your referral.
--- NOTE | 2025-08-11 08:43 | MHC.PT.EP ---
[facility] [place] Office [place] Office [place] Office [address] Niyah Soto [address] [phone] F: [phone] F: [phone] F: [phone] F: [phone] Physical Therapy Plan of Care Date of Evaluation: 08/10/25 Date of Surgery: Diagnosis: norma, start B12 daily 1000mcg po sublingual disintegrating tablets. PSG to evaluate, Continue use of Bipap, with 2 liters of o2 at night daily and for >4 hours a night. will assess with psg as pt has not had a psg in over 10years. PT Gait and Balance Difficulty Orders: Orders PT Evaluation and Treatment 07/07/25 H81.90 - Unspecified disorder of vestibular function, unspecified ear, M54.32 - Sciatica, left side RT PSG in-lab sleep study 07/07/25 G47.10 - Hypersomnia, unspecified, G47.33 - Obstructive sleep apnea (adult) (pediatric), Z99.89 - Dependence on other enabling machines and devices Medications: New mecobalamin (vitamin B12) place tablet under tongue and allow to dissolve for at least30 secs before swallowing 1,000 mcg sublingual BEDTIME 90 tabs 3RF low b12 3 months MDD 1000mcg D51.9 - Vitamin B12 deficiency anemia, unspecified Coding Level of Care Code Est Pt Level 4 (64367) Diagnoses DIONICIO on CPAP G47.33; Z99.89 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 Pt notes history of TIA >5 years ago, notes being found on the floor on another occasion by her son with her oxygen in the 80s> hospitalization> notes was on oxygen for two years following this incident. She provides a distorted history, exhibits impaired lower extremity strength, impaired static and dynamic balance, decreased core and hip strength and significant callusing on her R>L foot. She presents to the office without AD, notes leaving her cane in the car. 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 She verbalized she is overwhelmed by her medical appts and is noted to mention stress re: her adult son who has autism who lives in first floor of her two story home. She admits to receiving care from senior services for assistance with bathing in a claw foot tub. Pt would benefit from attending skilled PT services at a frequency of 1-2x/week to address impairments, implement HEP, and restore functional mobility tolerance to maximize safety and reduce risk of falls. She states she does not currently exercise. She reports parathesias in her R LE, notes history of lumbar fusion, admits history of fecal incontinence (states was seen by GI office for workup yesterday and she states they were questioning sphincter control> with possible referral to pelvic floor PT). She reports history of fecal incontinence about one year after her back surgery, later resolving and then coming back again. Upon inspection and screening of her feet, I feel she would benefit from a consult with podiatry to address her calluses and specific needs requested for possible custom orthotics/toe support/padding/ footwear. Rehab prognosis is fair<>good based on interaction with patient, compliance for HEP, overall health status, chronicity of sx. Frequency and Duration: The patient will be seen 1-2x/week Short Term Goals: 1. Pt will initiate self-care/ HEP program. 2. Pt will demonstrate SLR into flexion with good eccentric control. 3. Pt will demonstrate hip abd to 4+/5 L>R and R>L. 4. Pt will demonstrate improved ankle flexibility for ambulation. Manager Marketing Goals: 1. I HEP with good body mechanics. 2. Strength hip abd 5/5. 3. Negotiate a few 6 inch steps with good dynamic balance and use of least restrictive AD with railing. 4. SLR 5/5 on L>R LE. Treatment Plan: Modalities to reduce pain, spasms and effusion. Manual therapy to restore motion and function. Therapeutic exercise to improve strength and flexibility. Neuromuscular re-education for posture and balance. Therapeutic activities to return to functional activities of daily living. Electronically signed by: Raisa Perea, PT, DPT Please sign and return to therapist. Thank you for your referral.
== END 2025-10-04 10:00 | disposition home or self-care (01) ==
LOC: HO.PTS 09:53
PROVIDERS: Visit Provider Physician Assistant Medical
DX: R26.89 Other abnormalities of gait and mobility (principal); S09.90XS Unspecified injury of head, sequela; Z86.73 Personal history of transient ischemic attack (TIA), and cerebral infarction without residual deficits
CPT/HCPCS: 97110; 97162; 97530

== ENCOUNTER → 2025-09-02 19:30 | Outpatient (REF) | payer MEDICARE, OTHER, SELFPAY ==
--- OUTSIDE RECORDS SUMMARY | 2024-03-30 05:30 | XMS_ITS ---
Author Organization [facility] [place] Address [address] [place] [address] Care Team Providers Care Earth Sciences Professor Name Role Phone Migration, Provider Unavailable Unavailable REASON FOR VISIT CPX Encounters Encounter Location Date Provider Diagnosis [address] [place] [address] 03/30/2024 Provider Migration Plan Of Treatment Next Appt Details Provider Name:Carolina Franco, 09/22/2025 10:30:00 AM, [address] [place] [address], [place] [address], [place], [address], [phone] Progress Notes * RAMSES WOODOB:1945 (79 yo F)Acc No.[id number]:03/30/2024 Progress Notes Patient: HEIDY SCOTT Provider: Ryne jamil Migration :1945 A ge:78 Y S ex:Female Date:03/30/2024 Address:[address] [place], [place] [phone] Subjective: * Chief Complaints: * C PX * Ocular Surgical History: Objective: Vision Examination: * Electronic signature of Prov ider Migration on 09/02/2025 at 09:22 PM EST Sign off status: Pending * Provider: Ryne jamil Migration Date: 03/30/2024 Generated for Nydia arechiga/Jose/eTransmitting on: 11/02/2024 09:22 PM EST
--- OUTSIDE RECORDS SUMMARY | 2024-06-02 06:30 | XMS_ITS ---
Author Organization [facility] [place] Address [address] [place] [address] Care Team Providers Care Bioinformatics Software Engineer Name Role Phone Migration, Provider Unavailable Unavailable REASON FOR VISIT HOSPITAL DISCHARGE FOLLOW UP VIIST Encounters Encounter Location Date Provider Diagnosis [facility] [address] [facility] [address] [place] [address] 06/02/2024 Provider Migration Plan Of Treatment Next Appt Details Provider Name:Carolina Franco, 09/22/2025 10:30:00 AM, [address] [facility], Suite [facility], [place], [address], [phone] Progress Notes * RAMSES WOODOB:1945 (79 yo F)Acc No.[id number]:06/02/2024 Progress Notes Patient: JOSE ENRIQUE SCOTTANDRA Provider: Ryne Echevarria :1945 A ge:78 Y S ex:Female Date:06/02/2024 Address:[address] [place], [place] [phone] Subjective: * Chief Complaints: * H OSPITAL DISCHARGE FOLLOW UP VIIST * Ocular Surgical History: Objective: Vision Examination: * Electronic signature of Prov ider Migration on 09/02/2025 at 09:22 PM EST Sign off status: Pending * Provider: Ryne jamil Migration Date: 0 06/02/2024 Generated for Edwardi hawk/Faaliyag/eTransmitting on: 1 11/02/2024 09:22 PM EST
--- OUTSIDE RECORDS SUMMARY | 2024-06-16 04:00 | XMS_ITS ---
Author Organization [facility] [place] Address [address] [address] [place] [address] Care Team Providers Care Solar Fabrication Technician Name Role Phone Migration, Provider Unavailable Unavailable REASON FOR VISIT Sick Visit Encounters Encounter Location Date Provider Diagnosis [address] [address] 06/16/2024 Provider Migration Plan Of Treatment Next Appt Details Provider Name:Carolina Franco, 09/22/2025 10:30:00 AM, [address] [place] [address], [place] [address], [place], [address], [phone] Progress Notes * RAMSES WOODOB:1945 (79 yo F)Acc No.[id number]:06/16/2024 Progress Notes Patient: HEIDY SCOTT Provider: Ryne jamil Migration :1945 A ge:78 Y S ex:Female Date:06/16/2024 Address:[address] [place], [place] [phone] Subjective: * Chief Complaints: * S ick Visit * Ocular Surgical History: Objective: Vision Examination: * Electronic signature of Prov ider Migration on 09/02/2025 at 09:22 PM EST Sign off status: Pending * Provider: Ryne jamil Migration Date: 0 06/16/2024 Generated for Edwardi ng/Faaliyag/eTransmitting on: 1 11/02/2024 09:22 PM EST
--- OUTSIDE RECORDS SUMMARY | 2024-08-02 06:00 | XMS_ITS ---
Author Organization [facility] [place] Address [address] [facility] [facility] [address] [place] [address] Care Team Providers Care Flame Burner Name Role Phone Migration, Provider Unavailable Unavailable REASON FOR VISIT Follow-up Appt Encounters Encounter Location Date Provider Diagnosis [facility] [address] [facility] [address] [place] [phone] 08/02/2024 Provider Migration Plan Of Treatment Next Appt Details Provider Name:Carolina Franco, 09/22/2025 10:30:00 AM, [address] [place] [address], Suite [facility], [place], [address], [phone] Progress Notes * RAMSES WOODOB:1945 (79 yo F)Acc No.[id number]:08/02/2024 Progress Notes Patient: LISSETH SCOTTRA Provider: Ryne Echevarria :1945 A ge:78 Y S ex:Female Date:08/02/2024 Address:[address] [place], [place] [phone] Subjective: * Chief Complaints: * F ollow-up Appt * Ocular Surgical History: Objective: Vision Examination: * Electronic signature of Prov ider Migration on 09/02/2025 at 09:22 PM EST Sign off status: Pending * Provider: Ryne jamil Migration Date: Generated for Printi ng/Faxing/eTransmitting on: 11/02/2024 09:22 PM EST
--- OUTSIDE RECORDS SUMMARY | 2024-11-25 05:00 | XMS_ITS ---
Author Organization [facility], [place] Address [address] [facility] [address] [place] [address] Care Team Providers Care Waste Management Engineer Name Role Phone Migration, Provider Unavailable Unavailable REASON FOR VISIT Follow-up Appt Encounters Encounter Location Date Provider Diagnosis [facility] [address] [facility] [address] [place] [phone] 11/25/2024 Provider Migration Plan Of Treatment Next Appt Details Provider Name:Carolina Franco, 09/22/2025 10:30:00 AM, [address] [facility], Suite [facility], [place], [address], [phone] Progress Notes * RAMSES WOODOB:1945 (79 yo F)Acc No.[id number]:11/25/2024 Progress Notes Patient: Jessica MAHMOOD HEIDY Provider: Ryne Echevarria :1945 A ge:78 Y S ex:Female Date:11/25/2024 Address:[address] [place], [place] [phone] Subjective: * Chief Complaints: * F ollow-up Appt * Ocular Surgical History: Objective: Vision Examination: * Electronic signature of Prov ider Migration on 09/02/2025 at 09:23 PM EST Sign off status: Pending * Provider: Ryne jamil Migration Date: 0 11/25/2024 Generated for Printi ng/Faxing/eTransmitting on: 1 11/02/2024 09:23 PM EST
--- OUTSIDE RECORDS SUMMARY | 2024-12-23 05:30 | XMS_ITS ---
Author Organization [facility], [place] Address [address] [facility] [address] [place] [address] Care Team Providers Care Salesperson Fashion Accessories Name Role Phone Jeremy Mcgee Unavailable [phone] REASON FOR VISIT Follow-up Appt Encounters Encounter Location Date Provider Diagnosis [facility] [place] [address] [facility] [address] [place] [phone] 12/23/2024 Jeremy Mcgee Plan Of Treatment Next Appt Details Provider Name:Carolina Franco, 09/22/2025 10:30:00 AM, [address] [facility], [address], [place], [address], [phone] Progress Notes * RAMSES WOODOB:1945 (79 yo F)Acc No.[id number]:12/23/2024 Progress Notes Patient: LISSETH SCOTTRA Provider: Virgilio YEAGER :1945 A ge:79 Y S ex:Female Date:12/23/2024 Address:[address] [place], [place] [phone] Subjective: * Chief Complaints: * F ollow-up Appt * Ocular Surgical History: Objective: Vision Examination: * Electronic signature of Dilip Mcgee PA-C on 09/02/2025 at 09:23 PM EST Sign off status: Pending * Provider: Virgilio YEAGER Date: 0 12/23/2024 Generated for Printi ng/Faxing/eTransmitting on: 1 11/02/2024 09:23 PM EST
--- OUTSIDE RECORDS SUMMARY | 2024-12-23 05:30 | XMS_ITS ---
Author Organization [facility], [place] Address [address] [facility] [address] [place] [address] Care Team Providers Care Signaler Name Role Phone Migration, Provider Unavailable Unavailable REASON FOR VISIT Follow-up Appt Encounters Encounter Location Date Provider Diagnosis [facility] [address] [facility] [address] [place] [phone] 12/23/2024 Provider Migration Plan Of Treatment Next Appt Details Provider Name:Carolina Franco, 09/22/2025 10:30:00 AM, [address] [facility], Suite [facility], [place], [address], [phone] Progress Notes * RAMSES WOODOB:1945 (79 yo F)Acc No.[id number]:12/23/2024 Progress Notes Patient: Jessica MAHMOOD HEIDY Provider: Ryne Echevarria :1945 A ge:79 Y S ex:Female Date:12/23/2024 Address:[address] [place], [place] [phone] Subjective: * Chief Complaints: * F ollow-up Appt * Ocular Surgical History: Objective: Vision Examination: * Electronic signature of Prov ider Migration on 09/02/2025 at 09:23 PM EST Sign off status: Pending * Provider: Ryne jamil Migration Date: 0 12/23/2024 Generated for Printi ng/Faxing/eTransmitting on: 1 11/02/2024 09:23 PM EST
--- OUTSIDE RECORDS SUMMARY | 2025-05-02 05:00 | XMS_ITS ---
Author Organization [facility] [place] Address [address] [place] [address] Care Team Providers Care Wire Stockkeeper Name Role Phone Carolina Franco Unavailable [phone] Allergies Allergen (clinical drug ingredient) Drug/Non Drug [...] Location Date Provider Diagnosis [facility], [place] [address] [facility] [address] [facility] [address] [place] [address] 05/02/2025 Carolina Franco Plan Of Treatment Next Appt Details Provider Name:Carolina Franco, 09/22/2025 10:30:00 AM, [address], [address], [place], [address], [phone] History and Physical Notes * HPI (History [...] Notes * NINA RAMSESOB:1945 (79 yo F)Acc No.[id number]:05/02/2025 Progress Notes Patient: HEIDY SCOTT Provider: Jessica Franco :1945 A ge:79 Y S ex:Female Date:05/02/2025 Address:[address] [place] [phone] Subjective: * Chief Complaints: * I 'm [...] GERD, HTN, hypothyroidism, allergic rhinitis, chronic pain, DINOICIO, hypokalemia, HLD and asthma/COPD who presents for [...] * Electronic signature of Sasha Franco on 09/02/2025 at 09:22 PM EST Sign off status: Pending * Provider: Jessica Franco Date: 0 05/02/2025 Generated for Ndyia arechiga/Jose/Hailey on: 11/02/2024 09:22 PM EST
--- OUTSIDE RECORDS SUMMARY | 2025-05-24 08:45 | XMS_ITS ---
Author Organization [facility], [place] Address [address] [place] [address] Care Team Providers Care Director Data Name Role Phone Carolina Franco Unavailable [phone] Allergies Allergen (clinical drug ingredient) Drug/Non Drug [...] Location Date Provider Diagnosis [facility] [place] [address] [facility] [address] [place] [address] 05/24/2025 Carolina Franco Right foot pain M79.671 Assessments Encounter Date Diagnosis (ICD Code) Assessment Notes Treatment Notes Treatment Clinical Notes Section Notes 05/24/2025 Right foot pain (ICD-10 - M79.671) Plan Of Treatment Medication Medication Name Sig Start Date Stop Date Notes Celecoxib 50 MG Capsule 1 capsule Orally Once a day; Duration: 3 days 05/24/2025 Next Appt Details Provider Name:Carolina Franco, 09/22/2025 10:30:00 AM, [address] [facility], [place] [address], [place], [address], [phone] History and Physical Notes * HPI (History [...] Notes * RAMSES WOODOB:1945 (79 yo F)Acc No.[id number]:05/24/2025 Progress Notes Patient: Jessica HEIDY MAHMOOD Provider: Jessica magdaleno Franco :1945 A ge:79 Y S ex:Female Date:05/24/2025 Address:[address] [place] [address], [id number] Subjective: * Chief Complaints: * P ain, [...] signature of Sasha Franco on 09/02/2025 at 09:23 PM EST Sign off status: Pending * Provider: Jessica Franco Date: 0 05/24/2025 Generated for Nydia arechiga/Jose/Hailey on: 1 11/02/2024 09:23 PM EST
--- OUTSIDE RECORDS SUMMARY | 2025-08-01 05:45 | XMS_ITS ---
Author Organization [facility] [place] Address [address] [place] [address] Care Team Providers Care Lead Programmer Analyst Name Role Phone Carolina Franco Unavailable [phone] Allergies Allergen (clinical drug ingredient) Drug/Non Drug [...] Location Date Provider Diagnosis [facility] [place] [address] [facility] [address] [place] [address] 08/01/2025 Carolina Franco Plan Of Treatment Next Appt Details Provider Name:Carolina Franco, 09/22/2025 10:30:00 AM, [address] [facility], [address], [place], [address], [phone] History and Physical Notes * HPI (History [...] Plan: - Referral to Gastroenterology clinic at [address] [place] [address] for further evaluation - Right leg ultrasound [...] Notes * RAMSES WOODOB:1945 (79 yo F)Acc No.[id number]:08/01/2025 Progress Notes Patient: HEIDY SCOTT Provider: Jessica Franco :1945 A ge:79 Y S ex:Female Date:08/01/2025 Address:[address] [place] [phone] Subjective: * Chief Complaints: * 3 mo [...] Plan: - Referral to Gastroenterology clinic at [address] [place] [address] for further evaluation - Right leg ultrasound [...] Franco Date: Generated for Nydia arechiga/Jose/Hailey on: 11/02/2024 09:22 PM EST
--- OUTSIDE RECORDS SUMMARY | 2025-09-02 21:22 | XMS_ITS | Clinical Summary ---
Author Organization [facility] Address [address] [place] [address] Care Team Providers Care Wireless Retail Manager Name Role Phone Carlos Velasquez MD Primary Care Provider [phone] Allergies Active Allergy Reactions Criticality Noted Date [...] age to complete this topic Care Teams Wireless Retail Manager Relationship Specialty Start Date End Date Carlos Velasquez MD [address] [place] [address] PCP - General Internal Medicine 12/25/21
--- OUTSIDE RECORDS SUMMARY | 2025-09-02 21:22 | XMS_ITS | Patient Health Record ---
Author Organization [facility] [place] Address [address] [place] [address] Care Team Providers Care Paint Mixer Machine Name Role Phone Jeremy Mcgee Unavailable [phone] Migration, Provider Unavailable Unavailable Carolina Franco Unavailable [phone] Allergies Allergen (clinical drug ingredient) Drug/Non Drug [...] 1 puff Inhalation Once a day Active Levothyroxine Sodium 50 MCG Tablet 1 tablet in the morning on an empty stomach Orally Once a day Active Fluticasone Propionate 50 MCG/ACT Suspension 1 spray in each nostril Nasally Twice a day Active Vitamin D 25 MCG (1000 UT) Tablet 1 tablet Orally Once a day Active Omeprazole 20 MG Capsule Delayed Release 1 capsule 1/2 to 1 hour before morning meal Orally Once a day Active Vitamin B12 Active Simvastatin 20 MG Tablet 1 tablet in the evening Orally Once a day; Duration: 90 days 08/12/2025 Active Celecoxib 50 MG Capsule 1 capsule Orally Once a day; Duration: 3 days As needed 05/24/2025 Active Lisinopril-hydroCHLOROthiazi de 10-12.5 MG Tablet 1 tablet Orally Once a day; Duration: 90 days Active Social History Section Notes: DENIES SMOKING DENIES ALCOHOL CAFFEEINE-2 LITERS COKE DAILY DENIES SMOKING DENIES ALCOHOL CAFFEEINE-2 LITERS COKE DAILY Problems Problem Type SNOMED Code ICD Code Onset Dates Problem Status W/U Status Risk Notes Problem Hyperlipidemia (81656831) Hyperlipidemia, unspecified (E78.5) Active confirmed Vital Signs Heart Rate 73 /min 08/01/2025 Temperature 98.2 degrees Fahrenheit 05/24/2025 Respiratory Rate 19 /min 08/01/2025 Height-cm 160.02 cm 08/01/2025 Oximetry 98 % 08/01/2025 Blood pressure diastolic 83 mm Hg 08/01/2025 Weight-kg 77.47 kg 08/01/2025 Height 63 in 08/01/2025 Blood pressure systolic 141 mm Hg 08/01/2025 Weight 170.8 lbs 08/01/2025 BMI 30.25 kg/m2 08/01/2025 Encounters Encounter Location Date Provider Diagnosis [facility] [place] [address] [address] 11/25/2024 Provider Migration [facility], [address] [address] 12/23/2024 Provider Migration [facility] [place] [address] [address] 12/23/2024 Jeremy Mcgee [facility] [place] [address] [address] 05/02/2025 Carolina Franco [facility] [place] [address] [address] 05/24/2025 Carolina Joan Right foot pain M79.671 [facility] [place] [address] [address] 08/01/2025 Carolina Franco [facility] [place] [address] [address] 05/25/2025 Carolina Franco [facility] [place] [address] [address] 08/12/2025 Carolina Franco Hyperlipidemia, unspecified E78.5 Assessments Encounter Date Diagnosis (ICD Code) Assessment Notes Treatment Notes Treatment Clinical Notes Section Notes 05/24/2025 Right foot pain (ICD-10 - M79.671) 08/12/2025 Hyperlipidemia, unspecified (ICD-10 - E78.5) Plan Of Treatment Next Appt Details Provider Name:Carolina Franco, 09/22/2025 10:30:00 AM, [address] [facility], [address], [place], [address], [phone] Insurance Providers Payer Name Payer Address Payer Phone Subscriber Number Group Number Insured Name Patient Relationship to Insured Coverage Start Date Coverage End Date A [employer] [address] [place] [address] [id number] HEIDY WOOD Self - patient is the insured [facility] [address] [place] [address] [id number] HEIDY WOOD Self - patient is the insured Medical (General) History Medical History History ICD Code GI-DR RICHARD REILLY-ENDOCRINOLOGY UROLOGY PULMONOLOGY-DR FLEMING Surgical History Surgery Date(Month/Year) LUMBAR 04/30 ROTATOR CUFF RIGHT 04/03 Hospitalization History Reason Date(Month/Year) FELL 12/07
--- OUTSIDE RECORDS SUMMARY | 2025-09-02 21:22 | XMS_ITS | Data Portability ---
Author Organization [place] [facility] [place] Address [address] [place] [address] Care Team Providers Care City Clerk Name Role Phone MIKE SOTRM Primary Care Provider [phone] Assessment Encounter Date Assessment Date Assessment LastModified by Organization Details LastModified Time 02/07/2023 02/07/2023 This is a pleasant 77-year-old female with history of right shoulder rotator cuff repair surgery March 21, 2022 with 3 suture anchors ongoing discomfort despite physical therapy. Radiographs at today's visit reveal the following; 1. Performed a Grashey view at today's visit since this was not conducted at her last visit. She has well-seated suture anchors within the proximal humerus with notable degenerative change of the glenohumeral joint without obvious fracture or dislocation. Diagnosis #1 glenohumeral arthritis right shoulder Discussion with the patient regarding treatment and management for which she opted for the following; 1. No further treatment at this time per patient. If her symptoms return she states she will contact her office. Indirect care and treatment in conjunction with Dr. Schmidt Additional treatment plan discussed with the patient in detail included the following; - Provider focused nonsteroidal anti-inflammator y regimen (discussed were the pros, cons, benefits and risks as well as any black box warnings) - Analgesic pain medication for pain suppression (discussed were the pros, cons, benefits and risks as well as any black box warnings) - The use of topical pain relieving medication were discussed - The use of ice to decrease inflammation and pain - The use of assistive ambulatory devices for ambulation and fall prevention - Formal specific guided physical therapy program I reviewed my findings at length with the patient today. We discussed the nature and etiology of this problem along with current treatment options. We discussed the expected course and outcomes and what to expect. We also discussed risks and benefits. All of their questions were answered today, and there was exhibited understanding and comprehension of all that was discussed. 10 minutes were spent reviewing previous imaging and charting. 10 minutes were spent obtaining patient history. 5 minutes were spent on physical exam. 5minutes were spent explaining diagnosis and assessment. Today's documentation was made using voice recognition software. This note may contain grammatical errors secondary to the software. Not available 02/07/2023 11:43:30 11/27/2023 11/27/2023 This is a pleasant 77-year-old female with progressively worsening left shoulder pain with notable weakness with forward flexion and external rotation under resistance with clinical exam findings of impingement syndrome and probable rotator cuff tearing. I had discussion with the patient regarding management. She declined cortisone injection she was to hold on therapy due to the ongoing discomfort she wishes to proceed forward with an MRI. Will send her for an MRI I will see her back after her imaging study is complete it may refer her to Dr. Yin or another orthopedic shoulder specialist if indicated. In the meantime she should continue with stretching exercises and rotator cuff protective measures. She can take iqli-soa-kbkewhw pain medication for symptomatic relief. She agrees to this plan. Patient was seen and evaluated by Elsa Price PA-C in indirect conjuction with Documenting Provider: Ben Yin MD . He/She agrees with history, physical examination, tests/diagnostic imaging, and treatment plan. Additional treatment plan discussed with the patient (only initiated if in boldface font) otherwise not applicable. Treatment may include the following; - Provider focused nonsteroidal anti-inflammator y regimen (discussed were the pros, cons, benefits and risks as well as any black box warnings) in patients over 60 years old they should be very cautious in taking these medications due to potential decreased kidney function and or elevated blood pressure. - Analgesic pain medication for pain suppression (discussed were the pros, cons, benefits and risks as well as any black box warnings) - The use of topical pain relieving medication were discussed - The use of ice to decrease inflammation and pain - The use of assistive ambulatory devices for ambulation and fall prevention - Formal specific guided physical therapy program I reviewed my findings at length with the patient today. We discussed the nature and etiology of this problem along with current treatment options. We discussed the expected course and outcomes and what to expect. We also discussed risks and benefits. All of their questions were answered today, and there was exhibited understanding and comprehension of all that was discussed. Time Spent: 10 minutes were spent reviewing previous imaging and charting. 10 minutes were spent obtaining patient history. 5 minutes were spent on physical exam. 5minutes were spent explaining diagnosis and assessment. Today's documentation was made using voice recognition software. This note may contain grammatical errors secondary to the software. Not available 12/02/2023 07:49:09 12/11/2023 12/11/2023 77-year-old female following up on her MRI of her left shoulder with notable os acromiale, subtle rotator cuff tearing and AC joint arthrosis. I had discussion with the patient regarding management. Since Dr. Yin no longer comes up to [place] with her insurance not allowing her to come to [place] I will refer her to Dr. Michael for surgical consultation evaluation. In the meantime she should continue with stretching exercises and rotator cuff protective measures. She can certainly take lfeu-qii-vukdtuk pain medication for symptomatic relief. We opted to hold on cortisone injection until she sees Dr. Michael. Patient agrees with the above-noted plan. Patient was seen and evaluated by Elsa Price PA-C in indirect conjuction with Documenting Provider: Ben iYn MD . He/She agrees with history, physical examination, tests/diagnostic imaging, and treatment plan. Additional treatment plan discussed with the patient (only initiated if in boldface font) otherwise not applicable. Treatment may include the following; - Provider focused nonsteroidal anti-inflammator y regimen (discussed were the pros, cons, benefits and risks as well as any black box warnings) in patients over 60 years old they should be very cautious in taking these medications due to potential decreased kidney function and or elevated blood pressure. - Analgesic pain medication for pain suppression (discussed were the pros, cons, benefits and risks as well as any black box warnings) - The use of topical pain relieving medication were discussed - The use of ice to decrease inflammation and pain - The use of assistive ambulatory devices for ambulation and fall prevention - Formal specific guided physical therapy program I reviewed my findings at length with the patient today. We discussed the nature and etiology of this problem along with current treatment options. We discussed the expected course and outcomes and what to expect. We also discussed risks and benefits. All of their questions were answered today, and there was exhibited understanding and comprehension of all that was discussed. Time Spent: 10 minutes were spent reviewing previous imaging and charting. 10 minutes were spent obtaining patient history. 5 minutes were spent on physical exam. 5minutes were spent explaining diagnosis and assessment. Today's documentation was made using voice recognition software. This note may contain grammatical errors secondary to the software. Not available 12/11/2023 13:59:55 Plan of Treatment Reminders Order Date Submit Date Provider Last Modified By Organization Details Last Modified Time Details Appointments None recorded. Lab None recorded. Referral orthopedic surgeon referral - . MRI performed at [facility] December 10, 2023 left shoulder impingement , rotator cuff tear os acromiale referral for surgical consultatio n 2023 024 [email or web address] Not available 4 09:05:31 Procedures None recorded. Surgeries None recorded. Imaging XR, shoulder, 2 or more view 2023 024 [email or web address] [facility], [address], [address], [place], [address], 4 12:23:05 MRI, shoulder, w/o contrast - Left shoulder weakness, impingement syndrome, rule out rotator cuff tear 2023 024 [email or web address] Not available 4 13:43:38 XR, shoulder, 1 view 2022 023 [email or web address] [facility], [address], [address], [place], [address], 3 14:10:50 Medication Orders None recorded. Patient TargetsNo targets recorded. Patient Instructions Encounter Date Encounter Id Patient Instructions Last Modified By Organization Details Last Modified Time 11/27/2023 [id number] X-rays at today' s visit of the left shoulder reveal AC joint arthrosis, joint space narrowing, mild glenohumeral subchondral sclerosis with otherwise well-maintained joint space, type II acromion no acute bony abnormality Not available 12/02/2023 07:49:13 Reason for Referral Orthopedic Surgeon Referral for Impingement syndrome of left shoulder region . MRI performed at [facility] December 10, 2023 left shoulder impingement, rotator cuff tear os acromiale referral for surgical consultation Referring Physician: Elsa Price, Orthopedic Surgery, Encounter Date: 12/11/2023 Results Created Date Observation Date Name Description Value Unit Range Abnormal Flag Note LastModifiedBy Organization Detail LastModifiedTime 12/10/19 24 MRI, shoul leonidas, w/o contr ast No observ ation record ed. [email or web address] Not Available 12/10 13:43:38 Result Notes None recorded. Problems Name Problem SNOMED Code Status Onset Date Resolution Date Notes Provider Name and Address Organization Details Recorded Time Problem 61544377 Active No known active problems Not Available [facility] 5 00:34:33 Impingeme nt syndrome of left shoulder region 54239522137 9104 Active 2023 ELSA PRICE PA-C [address], [place], [address] , [place] [facility] 4 07:49:24 Shoulder girdle weakness 543312325 Active 2023 ELSA PRICE PA-C [address], [place], [address] , [place] [facility], [facility] 4 07:49:29 Left os acromiale 76785522627 848549 Active 2023 ELSA PRICE PA-C [address], [place], [address] , [place] [facility] 4 14:00:10 Full thickness rotator cuff tear 186861132 Active 2023 ELSA PRICE PA-C [address], [place], [address] , [place] [facility] 4 14:00:28 Problem Notes None recorded. Procedures Surgical History Date Name Laterality Status Provider Name and Address Organization Details Recorded Time 10/13/19 13 hysterectomy completed Lori Smith [place] - [facility] 02/07/2023 11:24:30 10/13/18 93 removal of pilonidal cyst completed Lori Escalanterell [place] - [facility] 02/07/2023 11:24:18 10/13/18 67 section completed Lori Escalanterell [place] [facility] 02/07/2023 11:24:03 Imaging Results None recorded. Procedure Notes None recorded. Medical Equipment None Reported. Allergies Allergen ID Allergen Name Allergen Category Reaction Reaction Severity Criticality Documentation Date Start Date Code Code System Note Provider Name and Address Organization Details Recorded Time 3170 Cipro medicatio n Not available Not available Not available 02/07/202353613 3 RxNorm Lori Smith [facility], [place] - [facility], [facility] 11:21:22 04799 amoxicill in / clavulana te medicatio n Not available Not available Not available 07/05/20252021 76172 RxNorm Not Available [facility] 5 01:27:39 47845 prednison e medicatio n Not available Not available Not available 07/05/20252021 8640 RxNorm Not Available [facility] 5 01:27:39 72514 ciproflox acin medicatio n Not available Not available Not available 07/05/20252017 2551 RxNorm Other react ion(s ): OTHER , Sindi ntrav enous cause s redne ss ?Of the arm she ?Had the IV in Not Available [facility] 5 01:27:39 Medications Name Sig Start Date Stop Date Status Note LastModified by Organization Details LastModified Time tizanidine 2 mg tablet Take 2 mg by mouth. active Not Available Not Available No t Available citalopram 10 mg tablet Take 10 mg by mouth. 2018 active Not Available Not Available Not Avai lable prednisone 20 mg tablet TAKE 1 TABLET BY MOUTH TWICE A DAY active Not Available Not Available No t Available calcium 600 mg (as carbonate)- vitamin D3 5 mcg (200 unit) tablet Take by mouth. 2010 active Not Available Not Available Not Avai lable sulfamethox azole 800 mg-trimetho prim 160 mg tablet TAKE 1 TABLET BY MOUTH TWICE A DAY 02/07 completed Not Available Not Available Not Available tramadol 50 mg tablet TAKE 1 TABLET BY MOUTH EVERY 8 HOURS NEEDED FOR PAIN 02/07 completed Not Available Not Available Not Available potassium chloride 20 mEq oral packet Take 20 mEq by mouth. active Not Available Not Available No t Available levothyroxi ne 50 mcg tablet TAKE 1 TABLET BY MOUTH EVERY DAY active Not Available Not Available No t Available simvastatin 20 mg tablet Take 20 mg by mouth. active Not Available Not Available No t Available Mag 64 64 mg tablet,vickie yed release TAKE 1 TABLET BY MOUTH EVERY DAY active Not Available Not Available No t Available omeprazole 20 mg capsule,del ayed release TAKE 1 CAPSULE BY MOUTH EVERY DAY active Not Available Not Available No t Available lisinopril 10 mg-hydrochl orothiazide 12.5 mg tablet TAKE 1 TABLET BY MOUTH EVERY DAY active Not Available Not Available No t Available albuterol sulfate HFA 90 mcg/actuati on aerosol inhaler INHALE 2 PUFFS INTO THE LUNGS EVERY 4 HOURS NEEDED FOR WHEEZING FOR UP TO 30 DAYS. active Not Available Not Available No t Available fluticasone propionate 50 mcg/actuati on nasal spray,suspe nsion spray or apply 2 sprays inside Nose. active Not Available Not Available No t Available doxycycline hyclate 100 mg tablet 1 TABLET TWICE A DAY active Not Available Not Available No t Available oxycodone 5 mg tablet TAKE 1-2 TABS BY MOUTH EVERY 4 HOURS NEEDED FOR PAIN FOLLOWING YOUR RIGHT SHOULDER SURGERY 02/07 completed Not Available Not Available Not Available omeprazole magnesium 20 mg tablet,vickie yed release Take by mouth. active Not Available Not Available No t Available escitalopra m 5 mg tablet TAKE 1 TABLET BY MOUTH ONCE AFTER MEALS active Not Available Not Available No t Available duloxetine 20 mg capsule,del ayed release TAKE 1 CAPSULE BY MOUTH EVERY DAY active Not Available Not Available No t Available tizanidine 4 mg capsule Take 8 mg by mouth. 2018 active Not Available Not Available Not Avai lable Lexapro active Not Available Not Avail able Not Available cholecalcif ana (vitamin D3) 25 mcg (1,000 unit) tablet Take by mouth. active Not Available Not Available No t Available Breo Ellipta 200 mcg-25 mcg/dose powder for inhalation INHALE 1 PUFF INTO THE LUNGS DAILY FOR 30 DAYS. active Not Available Not Available No t Available oxygen active Not Available Not Availa ble Not Available Irineoxankit Inhub 250 mcg-50 mcg/dose powder for inhalation INHALE 1 PUFF INTO THE LUNGS 2 TIMES DAILY FOR 30 DAYS. active Not Available Not Available No t Available Flowflex COVID-19 Antigen Home Test kit REFER TO MANUFACTU JEREMIAS VONNIE NS INCLUDED IN PACKAGING 02/07 completed Not Available Not Available Not Available Vitals Date Recorded Body height Body mass index (BMI) Body weight Provider Name and Address Organization Details Last Updated DateTime 11/27/2023 165.1 cm 27.3 kg/m2 [address]65.[address] [place] [facility] 11/27/2023 11:08:13 Social History None recorded. Functional Status Question Answer Note LastModified by Organization D etails LastModified Time What is your level of alcohol consumption? None [email or web address] Information not available 02/07/2023 Mental Status None recorded. Family History Relationship Description Onset Age of this Age Resolved Age Notes LastModified by Organization Details LastModified Time Father Family history of malignant neoplasm [email or web address] Not available 02/07 11:23:13 Father Hypertensive disorder [email or web address] Not available 02/07 11:23:25 Brother Hypertensive disorder [email or web address] Not available 02/07 11:23:30 Mother Hypertensive disorder [email or web address] Not available 02/07 11:23:32 Mother Hyperlipidem ia [email or web address] Not available 02/07 11:23:48 Medical History Condition Response Coronary Artery Disease N Gout N Hyperthyroidism N Blood Transfusion N MRSA N Emphysema N Depression N COPD Y Hypothyroidism Y Pacemaker N Vascular Disease N Gastrointestinal Disease N Anxiety Disorder N Autoimmune disease N Arthritis N Cancer N Stroke N High Cholesterol N Neurologic Disorder N Liver Disease N Organ Transplant N Rheumatoid Arthritis N Arrhythmia N Fibromyalgia N Kidney Disease N Allergies/Hayfever N Adverse Reaction to Anesthesia N Thyroid Problems N Anemia N Brain Injury N Heart Attack (DE) N Osteopenia N Diabetes N Bleeding Disorder N Seizures/Epilepsy N AIDS/HIV N Congestive Heart Failure (CHF) N Asthma Y Amputation N Reflux/GERD Y Sleep Apnea N Hepatitis N Aneurysm N Heart Disease N Pulmonary Embolism N Hypertension Y Osteoporosis N Gynecological HistoryNo gynecological history recorded. Obstetrics History GPAL:G 0 P 0 0 0 0 Past Encounters Encounter ID Performer Location Encounter Start Date Encounter Closed Date Diagnosis/Indication Diagnosis SNOMED-CT Code Diagnosis ICD10 Code Diagnosis IMO Codes Diagnosis Note [id number] [facility] [address] [place] [address] 02/07/2023 10:45:41 02/07/2023 11:19:54 Pain of right shoulder joint 7416047346 9945645 M25.511 [id number] ELIUD ALDRICH [facility] [address] [facility] [address] [place] [address] 11/27/2023 10:42:23 11/27/2023 11:27:46 Pain of left shoulder joint 5301892631 4214542 M25.512 Impingemen t syndrome of left shoulder region 9374280424 58927 M75.42 Shoulder g irdle weakness 296953491 M99.07 [id number] ELIUD ALDRICH [facility] [address] [facility] [address] [place] [address] 12/11/2023 10:15:51 12/11/2023 10:52:21 Impingement syndrome of left shoulder region 7258605013 60205 M75.42 Full thick ness rotator cuff tear 700420474 M75.122 Left os acromiale 130422 8348 3930085 M89.212 Health Concerns Section Related Observation LastModified by Organization Detai ls LastModified Time None Recorded Concern Status LastModified by Organization Details LastModified Time None Recorded Advance Directives Directive None Recorded Payers Insurance Date Sequence Insurance Name Policy Number Policy Alcantara Covered Member ID Alcantara Member ID Guarantor Name 12/08/2023 2 [facility] (MEDICARE SUPPLEMENT) Heidy Bellkins [id number] Heidy Bellkins 11/24/2023 1 [place]: [employer]ATIONAL [employer]MENT [employer] Heidy [employer] [id number] Heidy [place] 11/27/2023 2 [facility] [employer] PLAN [id number] Heidy Bellkins [id number] Heidy Bellkins Notes Date Note Type Note Provider Name and Address Organization Details Recorded Time 02/07/2023 text/html Assessment/Plan: (Dr. Julien's note) date of visit 11/03/2021.Ms. Kaminski continues to do very well after undergoing right shoulder rotator cuff repair surgery on March 21, 2022. She will complete formal physical therapy tomorrow as scheduled. She will then transition to a home exercise program. The do's and don'ts of lifting were discussed at length with the patient. She will contact me prior to her follow-up appointment in 3 months should any questions or concerns arise. Feel free to call me at any time should questions regarding her orthopedic management arise. HPI: Patient states she completed formal physical therapy she has occasional discomfort however doing well otherwise. ELSA PRICE PA-C [address], [address], [place] - [facility] 02/07/2023 11:44:00 11/27/2023 text/html Pleasant 77-year-old female here for evaluation of worsening left shoulder pain with notable weakness seen by her PCP on 11/18/2023. States her range of motion is limited pain radiates overlying her shoulder. She has nocturnal symptoms. Denies neck symptoms or paresthesias here for evaluation treatment. X-rays at today's visit of the left shoulder reveal AC joint arthrosis, joint space narrowing, mild glenohumeral subchondral sclerosis with otherwise well-maintained joint space, type II acromion no acute bony abnormality ELSA PRICE PA-C [address] [address], [place], [address], [place] [facility] 12/02/2023 07:50:33 12/11/2023 text/html Pleasant 77-year-old female following up on her MRI of her left shoulder with impingement syndrome rotator cuff tendinosis with small full-thickness tearing and os acromiale. Patient states unchanged left shoulder pain which waxes and wanes. Here for follow-up and treatment plan. [facility] [address] [place] [id number] Patient: HEIDY KAMINSKI/Age/Sex: 1945 - 77 - FUnit#: [id number] Location/Status: SPDIMRI/REG CLIAccount#: [id number] Mnem[facility] Phys[facility]: ELSA PRICE MR Shoulder LT WO - 12/10/23 -Report Status:SignedMRI left shoulder without contrastHISTORY: Shoulder pain. Impingement syndrome. Rule out rotator cuff tear.COMPARISON: NoneTECHNIQUE: Multiple MRI sequences were performed of the left shoulder wereperformed without contrastFINDINGS:Bones : No acute deformity is noted. Please see discussion below.Rotator cuff: Irregular signal involving the supraspinatus tendon distallywith significant thickening noted. Partial thickness articular surfacetearing is noted along the mid and posterior insertions. Small region oflinear vertical signal is noted that could represent a very small full-thickness tear within the mid tendon.Slightly irregular signal in the distal subscapularis consistent withtendinosis. There is some medial subluxation of the biceps tendon implyingat least partial tear of the distal subscapularis.AC joint: Os acromion is noted. Significant irregular fluid signal isnoted within the AC joint with mild erosive changes of the distal claviclethat are likely inflammatory. Type I, flat acromion.Glenohumeral joint: Mild joint effusion. Minimal degenerative changes.Ligaments: Joint capsule appears normalBiceps: Slightly increased signal and thickening of the biceps tendonconsistent with tendinosis and partial tearing.Labrum: No visible tear. The anterior superior labrum is diminutive withthickened middle glenohumeral ligament which may represent a normal variantBuford complex.Soft tissues: Fluid is noted in the subacromial and subdeltoid bursa withsmall regions of signal noted that may represent small inflammatory bodies.It is uncertain if this represents bursitis or communication of fluidassociated with a very small linear full-thickness tear of the rotator cuffas described above.IMPRESSION:Findi ngs most significant for rotator cuff tendinosis as well asinflammatory changes of the acromioclavicular joint with note of os acromiondetailed above.Dictating Physician: LARISSA NUNEZ MDElectronically Signed by: LARISSA NUNEZ MDDic Date/Time: 12/10/23 1320Sign date/Time: 12/10/23 1334 ELSA PRICE PA-C [address] [place] [address], [address], [place] [facility] 12/11/2023 14:01:41 OBGyn Episode No OBEpisode recorded.
--- OUTSIDE RECORDS SUMMARY | 2025-09-02 21:23 | XMS_ITS | Continuity of Care Document ---
Author Organization [facility] [address] [place] [address] Phone [phone] Care Team Providers Care Physical Testing Supervisor Name Role Phone Carlos Velasquez M.D. Care Team Information Receive r [phone] Everardo YEAGER Care Team Information Receiv er [phone] Problems Active Problems Provider Date Hypothyroidism Ziggy [...] Qnty Indications Order ing Provider Date Levothyroxine Aacjuc77ltm Tablets Take 1 Tablet By Mouth Every Day 90tabs Ziggy Calderon M.D. 04/27/2024 Breo Lrizltj203-42ncz/Act Aerosol Inhale 1 puff Into The Lungs Daily For 30 Days. Tereza Slaughter MD Qcadqxadfxk44wv Tablets Take 1 Tablet By Mouth Every Day Carlos Velasquez M.D. Lisinopril-Hydrochloro cwsiphdc60-50.5mg Tablets Take 1 Tablet By Mouth Every Day Carlos Velasquez M.D. Albuterol Sulfate ASG119(90Base) mcg/Act Aerosol Inhale 2 Puffs Into The Lungs Every 4 Hours as Needed For Wheezing For Up To 30 Tereza Slaughter MD Adgyuwmoel01vv Capsules DR Take 1 Capsule By Mouth Every Day Carlos Velasquez M.D. Potassium Pnvikojy44Sqy Packet Dissolve 1 Packet as Directed Once A Day Carlos Velasquez M.D. Fluticasone Amxjghjiwc05ypl/Act Suspension [place] 2 Sprays Into Both Nostrils Twice A Day as Needed Carlos eVlasquez M.D. Vital Signs Date Vital Result Comment [...] 0 TSH With Reflex To FT4 10/23/2023 [facility] TSH With Reflex To FT4 [...]
== END ==
LOC: HO.SL 19:30
PROVIDERS: PCP Physician Assistant; Visit Provider Physician Assistant Medical
DX: G47.33 Obstructive sleep apnea (adult) (pediatric) (principal); G47.10 Hypersomnia, unspecified; Z99.89 Dependence on other enabling machines and devices
CPT/HCPCS: 95810

== ENCOUNTER → 2025-09-02 20:39 | Outpatient (BNV) | payer MEDICARE, OTHER, SELFPAY | PROVIDERS: PCP Physician Assistant; Visit Provider Psychiatry & Neurology Neurology | DX: R06.83 Snoring (principal) | CPT/HCPCS: 95810 ==

== ENCOUNTER 2025-09-20 13:31 | Outpatient (AMB) | payer MEDICARE, OTHER, SELFPAY ==
--- OUTSIDE RECORDS SUMMARY | 2024-03-30 05:30 | XMS_ITS ---
Author Organization [facility] [place] Address [address] [place] [address] Care Team Providers Care Crop Farm Workers Name Role Phone Migration, Provider Unavailable Unavailable REASON FOR VISIT CPX Encounters Encounter Location Date Provider Diagnosis [address] [address] 03/30/2024 Provider Migration Plan Of Treatment Next Appt Details Provider Name:Carolina Franco, 09/22/2025 10:30:00 AM, [address] [place] [address], [place] [address], [place], [address], [phone] Progress Notes * RAMSES WOODOB:1945 (79 yo F)Acc No.[id number]:03/30/2024 Progress Notes Patient: HEIDY SCOTT Provider: Ryne jamil Migration :1945 A ge:78 Y S ex:Female Date:03/30/2024 Address:[address] [place], [place] [phone] Subjective: * Chief Complaints: * C PX * Ocular Surgical History: Objective: Vision Examination: * Electronic signature of Prov ider Migration on 09/20/2025 at 07:01 PM EST Sign off status: Pending * Provider: Ryne jamil Migration Date: 03/30/2024 Generated for Nydia arechiga/Jose/eTransmitting on: 1 11/21/2024 07:01 PM EST
--- OUTSIDE RECORDS SUMMARY | 2024-06-02 06:30 | XMS_ITS ---
Author Organization [facility] [place] Address [address] [place] [address] Care Team Providers Care Electrical Engineering Manager Name Role Phone Migration, Provider Unavailable Unavailable REASON FOR VISIT HOSPITAL DISCHARGE FOLLOW UP VIIST Encounters Encounter Location Date Provider Diagnosis [facility] [address] [facility] [address] [place] [address] 06/02/2024 Provider Migration Plan Of Treatment Next Appt Details Provider Name:Carloina Franco, 09/22/2025 10:30:00 AM, [address] [facility], Suite [facility], [place], [address], [phone] Progress Notes * RAMSES WOODOB:1945 (79 yo F)Acc No.[id number]:06/02/2024 Progress Notes Patient: LISSETH SCOTTRA Provider: Ryne Echevarria :1945 A ge:78 Y S ex:Female Date:06/02/2024 Address:[address] [place], [place] [phone] Subjective: * Chief Complaints: * H OSPITAL DISCHARGE FOLLOW UP VIIST * Ocular Surgical History: Objective: Vision Examination: * Electronic signature of Prov ider Migration on 09/20/2025 at 06:59 PM EST Sign off status: Pending * Provider: Ryne jamil Migration Date: 0 06/02/2024 Generated for Edwardi hawk/Faaliyag/eTransmitting on: 1 11/21/2024 06:59 PM EST
--- OUTSIDE RECORDS SUMMARY | 2024-06-16 04:00 | XMS_ITS ---
Author Organization [facility] [place] Address [address] [address] [place] [address] Care Team Providers Care Disk Recordist Name Role Phone Migration, Provider Unavailable Unavailable REASON FOR VISIT Sick Visit Encounters Encounter Location Date Provider Diagnosis [address] [address] 06/16/2024 Provider Migration Plan Of Treatment Next Appt Details Provider Name:Carolina Franco, 09/22/2025 10:30:00 AM, [address] [place] [address], [place] [address], [place], [address], [phone] Progress Notes * RAMSES WOODOB:1945 (79 yo F)Acc No.[id number]:06/16/2024 Progress Notes Patient: HEIDY SCOTT Provider: Ryne jamil Migration :1945 A ge:78 Y S ex:Female Date:06/16/2024 Address:[address] [place], [place] [phone] Subjective: * Chief Complaints: * S ick Visit * Ocular Surgical History: Objective: Vision Examination: * Electronic signature of Prov ider Migration on 09/20/2025 at 07:03 PM EST Sign off status: Pending * Provider: Ryne jamil Migration Date: 0 06/16/2024 Generated for Edwardi ng/Faaliyag/eTransmitting on: 1 11/21/2024 07:03 PM EST
--- OUTSIDE RECORDS SUMMARY | 2024-08-02 06:00 | XMS_ITS ---
Author Organization [facility] [place] Address [address] [facility] [address] [facility] [address] [place] [address] Care Team Providers Care Associate Professor Of English Name Role Phone Migration, Provider Unavailable Unavailable REASON FOR VISIT Follow-up Appt Encounters Encounter Location Date Provider Diagnosis [facility] [address] [facility] [address] [place] [address] 08/02/2024 Provider Migration Plan Of Treatment Next Appt Details Provider Name:Carolina Franco, 09/22/2025 10:30:00 AM, [address] [place] [address], Suite [facility], [place], [address], [phone] Progress Notes * RAMSES WOODOB:1945 (79 yo F)Acc No.[id number]:08/02/2024 Progress Notes Patient: LISSETH SCOTTRA Provider: Ryne Echevarria :1945 A ge:78 Y S ex:Female Date:08/02/2024 Address:[address] [place], [place] [phone] Subjective: * Chief Complaints: * F ollow-up Appt * Ocular Surgical History: Objective: Vision Examination: * Electronic signature of Prov ider Migration on 09/20/2025 at 06:58 PM EST Sign off status: Pending * Provider: Ryne jamil Migration Date: Generated for Printi ng/Faxing/eTransmitting on: 1 11/21/2024 06:58 PM EST
--- OUTSIDE RECORDS SUMMARY | 2024-12-23 05:30 | XMS_ITS ---
Author Organization [facility], [place] Address [address] [facility] [address] [place] [address] Care Team Providers Care Speeder Operator Name Role Phone Jeremy Mcgee Unavailable [phone] REASON FOR VISIT Follow-up Appt Encounters Encounter Location Date Provider Diagnosis [facility] [place] [address] [facility] [address] [place] [address] 12/23/2024 Jeremy Mcgee Plan Of Treatment Next Appt Details Provider Name:Carolina Franco, 09/22/2025 10:30:00 AM, [address] [facility], [address], [place], [address], [phone] Progress Notes * RAMSES WOODOB:1945 (79 yo F)Acc No.[id number]:12/23/2024 Progress Notes Patient: LISSETH SCOTTRA Provider: Virgilio YEAGER :1945 A ge:79 Y S ex:Female Date:12/23/2024 Address:[address] [place], [place] [phone] Subjective: * Chief Complaints: * F ollow-up Appt * Ocular Surgical History: Objective: Vision Examination: * Electronic signature of Dilip Mcgee PA-C on 09/20/2025 at 07:03 PM EST Sign off status: Pending * Provider: Virgilio YEAGER Date: 0 12/23/2024 Generated for Printi ng/Faxing/eTransmitting on: 1 11/21/2024 07:03 PM EST
--- OUTSIDE RECORDS SUMMARY | 2024-12-23 05:30 | XMS_ITS ---
Author Organization [facility], [place] Address [address] [facility] [address] [place] [address] Care Team Providers Care Coning Machine Operator Name Role Phone Migration, Provider Unavailable Unavailable REASON FOR VISIT Follow-up Appt Encounters Encounter Location Date Provider Diagnosis [facility] [address] [facility] [address] [place] [phone] 12/23/2024 Provider Migration Plan Of Treatment Next Appt Details Provider Name:Carolina Franco, 09/22/2025 10:30:00 AM, [address] [facility], Suite [facility], [place], [address], [phone] Progress Notes * RAMSES WOODOB:1945 (79 yo F)Acc No.[id number]:12/23/2024 Progress Notes Patient: LISSETH SCOTTRA Provider: Ryne Echevarria :1945 A ge:79 Y S ex:Female Date:12/23/2024 Address:[address] [place], [place] [phone] Subjective: * Chief Complaints: * F ollow-up Appt * Ocular Surgical History: Objective: Vision Examination: * Electronic signature of Prov ider Migration on 09/20/2025 at 07:03 PM EST Sign off status: Pending * Provider: Ryne jamil Migration Date: 0 12/23/2024 Generated for Printi ng/Faxing/eTransmitting on: 1 11/21/2024 07:03 PM EST
--- OUTSIDE RECORDS SUMMARY | 2025-05-02 05:00 | XMS_ITS ---
Author Organization [facility] [place] Address [address] [place] [address] Care Team Providers Care Director E Learning Name Role Phone Carolina Franco Unavailable [phone] Allergies Allergen (clinical drug ingredient) Drug/Non Drug Allergy documented on EMR Reaction Allergy Type Onset Date Status ciprofloxacin Cipro hives Drug Allergy Act ivania REASON FOR VISIT I'm having incontinence of feces but I have a colonoscopy on 05/20/2025 Medications Medication SIG (Take, Route, Frequency, Duration) Notes Start Date End Date Status Lisinopril-hydroCHLOROthiazi de 10-12.5 MG Tablet 1 tablet Orally Once a day Active Omeprazole 20 MG Capsule Delayed Release 1 capsule 1/2 to 1 hour before morning meal Orally Once a day Active Fluticasone Propionate 50 MCG/ACT Suspension 1 spray in each nostril Nasally Twice a day Active Levothyroxine Sodium 50 MCG Tablet 1 tablet in the morning on an empty stomach Orally Once a day Active Vitamin D 25 MCG (1000 UT) Tablet 1 tablet Orally Once a day Active CeleBREX 400 MG Capsule as directed Orally As needed Active Breo Ellipta 100-25 MCG/ACT Aerosol Powder Breath Activated 1 puff Inhalation Once a day Active Social History Section Notes: DENIES SMOKING DENIES ALCOHOL CAFFEEINE-2 LITERS COKE DAILY Vital Signs Temperature 97.5 degrees Fahrenheit 05/02/20 25 Blood pressure systolic 151 mm Hg 05/02/20 25 Blood pressure diastolic 98 mm Hg 025 Heart Rate 78 /min 05/02/2025 Respiratory Rate 20 /min 05/02/2025 Height 63 in 05/02/2025 Weight 168 lbs 05/02/2025 BMI 29.76 kg/m2 05/02/2025 Oximetry 98 % 05/02/2025 Height-cm 160.02 cm 05/02/2025 Weight-kg 76.2 kg 05/02/2025 Encounters Encounter Location Date Provider Diagnosis [facility] [place] [address] [facility] [address] [place] [address] 05/02/2025 Carolina Franco Plan Of Treatment Next Appt Details Provider Name:Carolina Franco, 09/22/2025 10:30:00 AM, [address], [address], [place], [address], [phone] History and Physical Notes * HPI (History of Present Illness) Category Sub-Category Detail Notes Category Not es Depression screening PHQ-9 Little inte rest or pleasure in doing things: Several days Feeling down, depressed, or hopeless: Mo re than half the days Trouble falling or staying asleep, or sl eeping too much: Several days Feeling tired or having little energy: N early every day Poor appetite or overeating: Nearly ever y day Feeling bad about yourself o r that you are a failure, or have let yourself or your family down: Not at all Trouble concentrating on thi ngs, such as reading the newspaper or watching television: Not at all Moving or speaking so slowly that other people could have noticed; or the opposite, being so fidgety or restless that you have been moving around a lot more than usual: More than half the days Thoughts that you would be b julieta off or of hurting yourself in some way: Not at all Total Score: 12 Interpretation: Moderate Depression General Pt is a 79yo female w/ medical hx of Vitamin D insufficiency, GERD, HTN, hypothyroidism, allergic rhinitis, chronic pain, DIONICIO, hypokalemia, HLD and asthma/COPD who presents for a f/up to review her labs. BP in office is elevated at 151/98. Pt notes that she is stressed and I worry a lot . She notes that she has loose stools which are causing fecal incontinence. Her GI provider is aware and she has an appt for a colonoscopy on 05/20/2025. She notes a hx of colon polyps that were found on her previous colonoscopy. Medications are reviewed and updated. Labs (12/23/24): Homocysteine 12.4 (H), K+ 3.4 (L-she was started on Potassium replacement powder), Cr 1.18 (H), eGFR 48 (L), B12 312 (Low normal), TSH (wnl). Pt denies fever, chills, dizziness, BORJA, SOB, cough, chest pain and abdominal pain. Progress Notes * NINA RAMSESOB:1945 (79 yo F)Acc No.[id number]:05/02/2025 Progress Notes Patient: HEIDY SCOTT Provider: Jessica Franco :1945 A ge:79 Y S ex:Female Date:05/02/2025 Address:[address] [place] [id number] Subjective: * Chief Complaints: * I 'm having incontinence of feces but I have a colonoscopy on 05/20/2025 * HPI: D epression screening: PHQ-9 L ittle interest or pleasure in doing things S everal days, F eeling down, depressed, or hopeless M ore than half the days, T rouble falling or staying asleep, or sleeping too much S everal days, F eeling tired or having little energy N early every day, P oor appetite or overeating N early every day, F eeling bad about yourself or that you are a failure, or have let yourself or your family down N ot at all, T rouble concentrating on things, such as reading the newspaper or watching television N ot at all, M oving or speaking so slowly that other people could have noticed; or the opposite, being so fidgety or restless that you have been moving around a lot more than usual M ore than half the days, T houghts that you would be better off or of hurting yourself in some way N ot at all, T otal Score 1 2, I nterpretation M oderate Depression. G eneral: Pt is a 79yo female w/ medical hx of Vitamin D insufficiency, GERD, HTN, hypothyroidism, allergic rhinitis, chronic pain, DIONICIO, hypokalemia, HLD and asthma/COPD who presents for a f/up to review her labs. BP in office is elevated at 151/98. Pt notes that she is stressed and I worry a lot . She notes that she has loose stools which are causing fecal incontinence. Her GI provider is aware and she has an appt for a colonoscopy on 05/20/2025. She notes a hx of colon polyps that were found on her previous colonoscopy. Medications are reviewed and updated. Labs (12/23/24): Homocysteine 12.4 (H), K+ 3.4 (L-she was started on Potassium replacement powder), Cr 1.18 (H), eGFR 48 (L), B12 312 (Low normal), TSH (wnl). Pt denies fever, chills, dizziness, BORJA, SOB, cough, chest pain and abdominal pain. * ROS: G eneral / Constitutional: Patient denies d enies headache, denies fatigue, denies fever, denies chills, denies lightheadedness. E NT: Patient denies d enies nasal congestion, sore throat, dry mouth. E ndocrine: Patient complains of e xcessive sweating, heat intolerance.? R espiratory: Patient denies c hest pain, cough, pain with inspiration, shortness of breath. C ardiovascular: Patient denies c hest pain, dyspnea on exertion, palpitations, shortness of breath. G astrointestinal: Patient complains of d iarrhea w/ stool incontinence. ? M usculoskeletal: Patient denies b ack pain, weakness, muscle aches. ? N eurologic: Patient denies c onfusion, tingling / numbness, dizziness, headache. P sychiatric: Comments P HQ-9 score is 12 (moderate depression). Pt denies SI/HI. * Medical History: GI-DR RICHARD REILLY-ENDOCRINOLOGY UROLOGY PULMONOLOGY-DR FLEMING Medical History Verified * Surgical History: LUMBAR 04/30 ROTATOR CUFF RIGHT 04/03 Surgical History verified. * Hospitalization/Major Diagno stic Procedure: FELL 12/07 Hospitalization Verified. * Family History: HEALTH CARE PROXY- JOMAR WOOD, ANGUS NINA-SONS. * Social History: Social History Verified. D ENIES SMOKING DENIES ALCOHOL CAFFEEINE-2 LITERS COKE DAILY. * Medications: T akingVitamin D 25 MCG (1000 UT) Tablet 1 tablet Orally Once a day Omeprazole 20 MG Capsule Delayed Release 1 capsule 1/2 to 1 hour before morning meal Orally Once a day Lisinopril-hydroCHLOROthiazide 10-12.5 MG Tablet 1 tablet Orally Once a day Levothyroxine Sodium 50 MCG Tablet 1 tablet in the morning on an empty stomach Orally Once a day Fluticasone Propionate 50 MCG/ACT Suspension 1 spray in each nostril Nasally Twice a day CeleBREX 400 MG Capsule as directed Orally As neededBreo Ellipta 100-25 MCG/ACT Aerosol Powder Breath Activated 1 puff Inhalation Once a day Taking Vitamin D 25 MCG (1000 UT) Tablet 1 tablet Orally Once a day Taking Omeprazole 20 MG Capsule Delayed Release 1 capsule 1/2 to 1 hour before morning meal Orally Once a day Taking Lisinopril-hydroCHLOROthiazide 10-12.5 MG Tablet 1 tablet Orally Once a day Taking Levothyroxine Sodium 50 MCG Tablet 1 tablet in the morning on an empty stomach Orally Once a day Taking Fluticasone Propionate 50 MCG/ACT Suspension 1 spray in each nostril Nasally Twice a day Taking CeleBREX 400 MG Capsule as directed Orally As neededTaking Breo Ellipta 100-25 MCG/ACT Aerosol Powder Breath Activated 1 puff Inhalation Once a day DiscontinuedCephalexin 500 MG Capsule 1 capsule Orally every 6 hrs Medication List reviewed and reconciled with the patientDiscontinued Cephalexin 500 MG Capsule 1 capsule Orally every 6 hrs Medication List reviewed and reconciled with the patient * Allergies: C ipro: hives Objective: * Vitals: B P: 151/98 mm Hg, HR: 78 /min, RR: 20 /min, Temp: 97.5 F, Oxygen sat %: 98 %, Ht: 63 in, Wt: 168 lbs, BMI: 29.76 Index, Wt-k.2 kg, Ht-cm: 160.02 cm, Body Surface Area: 1.84. Billing Information: * Procedure Codes: * Electronic signature of Sasha Franco on 09/20/2025 at 06:57 PM EST Sign off status: Pending * Provider: Jessica Franco Date: 0 05/02/2025 Generated for Nydia arechiga/Jose/Hailey on: 1 11/21/2024 06:57 PM EST
--- OUTSIDE RECORDS SUMMARY | 2025-05-24 08:45 | XMS_ITS ---
Author Organization [facility], [place] Address [address] [place] [address] Care Team Providers Care Internal Grinder Name Role Phone Carolina Franco Unavailable [phone] Allergies Allergen (clinical drug ingredient) Drug/Non Drug [...] Location Date Provider Diagnosis [facility] [place] [address] [place] [address] 05/24/2025 Carolina Franco Right foot pain M79.671 [...] Provider Name:Carolina Franco, 09/22/2025 10:30:00 AM, [address], [place] [address], [place], [address], [phone] History and Physical Notes * HPI (History [...] Notes * RAMSES WOODOB:1945 (79 yo F)Acc No.[id number]:05/24/2025 Progress Notes Patient: Jessica HEIDY MAHMOOD Provider: Jessica magdaleno Franco :1945 A ge:79 Y S ex:Female Date:05/24/2025 Address:[address] [place] [address], [id number] Subjective: * Chief Complaints: * P ain, [...] signature of Sasha Franco on 09/20/2025 at 07:02 PM EST Sign off status: Pending * Provider: Jessica Franco Date: 0 05/24/2025 Generated for Nydia arechiga/Jose/Hailey on: 1 11/21/2024 07:02 PM EST
--- OUTSIDE RECORDS SUMMARY | 2025-08-01 05:45 | XMS_ITS ---
Author Organization [facility] [place] Address [address] [place] [address] Care Team Providers Care Paint Formulator Name Role Phone Carolina Franco Unavailable [phone] Allergies Allergen (clinical drug ingredient) Drug/Non Drug [...] Location Date Provider Diagnosis [facility] [place] [address] [facility] [address] [place] [address] 08/01/2025 Carolina Franco Plan Of Treatment Next Appt Details Provider Name:Carolina Franco, 09/22/2025 10:30:00 AM, [address] [facility], [address], [place], [address], [phone] History and Physical Notes * HPI (History [...] Plan: - Referral to Gastroenterology clinic at [address] [place] [address] for further evaluation - Right leg ultrasound [...] Notes * RAMSES WOODOB:1945 (79 yo F)Acc No.[id number]:08/01/2025 Progress Notes Patient: HEIDY SCOTT Provider: Jessica Franco :1945 A ge:79 Y S ex:Female Date:08/01/2025 Address:[address] [place] [phone] Subjective: * Chief Complaints: * 3 mo [...] Plan: - Referral to Gastroenterology clinic at [address] [place] [address] for further evaluation - Right leg ultrasound [...] signature of Sasha Franco on 09/20/2025 at 06:59 PM EST Sign off status: Pending * Provider: Jessica Franco Date: Generated for Nydia arechiga/Jose/Hailey on: 11/21/2024 06:59 PM EST
--- NOTE | 2025-09-20 13:41 | A.OFFVIS_ITS ---
Vital Signs 09/20/25 13:42 Height 5 ft 3 in Weight 165 lb BMI 29.2 Intake Visit Reasons: Pain in right foot/left foot Intake Note: Marina is a 79 year old women who presents today as a new patient for an evaluation of her bilateral foot pain. Patient reports the she is here for the callous she has bilaterally however it has worsened in her right foot. She has not tried any treatment for the callous at this time. She only experiences pain on her right 2nd toe. Allergies cipro iv Adverse Reaction (Intermediate, Uncoded 09/02/24 10:56) limb swelling Medication List - Last Reconciled 09/25/25 by Jaqueline Roach DPM albuterol sulfate 90 mcg/actuation 0 mcg inhalation ammonium lactate 12% 1 appl topical DAILY aspirin (Adult Low Dose Aspirin) 81 mg PO DAILY cholecalciferol (vitamin D3) 25 mcg PO DAILY CPAP (CPAP Machine/Device) As directed fluticasone furoate-vilanterol 200-25 mcg/dose (Breo Ellipta) 1 inh inhalation DAILY fluticasone propionate 50 mcg/actuation 2 sprays intranasal BID PRN gabapentin 100 mg PO BID levothyroxine 50 mcg PO DAILY lisinopril-hydrochlorothiazide 10-12.5 mg 1 tab PO DAILY mecobalamin (vitamin B12) 1,000 mcg sublingual BEDTIME 3 months MDD 1000mcg omeprazole 20 mg PO DAILY Oxygen Home Use As directed potassium chloride 20 mEq PO DAILY simvastatin 20 mg PO BEDTIME HPI Comments Details: The patient is a 79-year-old female with a past medical history as seen below presenting for management of calluses on her feet. The calluses were noted by her physical therapist, whom she was seeing due to a history of frequent falls. The patient reports that she experiences pain to the plantar aspects of the feet due to the calluses. Patient states she is unable to tend to her feet due to her past medical history. She denies any recent pedal injuries and denies any other pedal concerns. [facility] Medical History (Updated 09/25/25 @ 11:47 by Jaqueline Roach DPM) Intractable plantar keratosis Other specified epidermal thickening PVD (peripheral vascular disease) Tinea unguium Surgical History H/O shoulder surgery Previous back surgery Social History Alcohol intake: never Patient Tobacco Use Status: Former Tobacco user Review of Systems Const Details: Integumentary: Reports painful calluses on feet and thickened and discolored toenails. All systems reviewed & are unremarkable except as noted in HPI and below Physical Exam Vital Signs: BMI result Body Mass Index 29.2 Extrem Other: Bilateral lower extremity focused physical exam: Derm: Thickened and discolored toenails x10 with subungual debris noted. Hyperkeratotic lesions noted to the plantar aspect of the feet and toes bilaterally. No open lesions abrasions or wounds noted. No active purulence drainage or bleeding noted. No clinical signs of infection noted. Skin supple and turgor within normal limits. Vascular: DP/PT pulses mildly palpable. Capillary refill time less than 3 seconds. Temperature gradient warm to warm. Pedal hair absent. No varicosities noted. Neuro: Protective sensation slightly diminished. MSK: Pain on palpation to the hyperkeratotic areas of the feet. Hammertoe deformities and bunion deformities noted bilaterally. No crepitus or fluctuance noted. Range of motion of the forefoot slightly diminished. Range of motion of the ankle and hindfoot within normal limits. Nonantalgic gait unassisted noted. Office Procedures AMB Debridement/Avulsion Podia Details: Debrided the hyperkeratotic lesions x6 using a 15. Blade without any incident. 85032-Kvojmeywaaa of Callus (5+) Procedure code (CPT) selection complete Assessment & Plan Assessment & Plan (1) Bilateral foot pain: Code(s): M79.671 - Pain in right foot; M79.672 - Pain in left foot Category: Medical (2) Tinea unguium: Code(s): B35.1 - Tinea unguium Category: Medical (3) PVD (peripheral vascular disease): Code(s): I73.9 - Peripheral vascular disease, unspecified Category: Medical (4) Other specified epidermal thickening: Code(s): L85.8 - Other specified epidermal thickening Category: Medical (5) Intractable plantar keratosis: Code(s): L84 - Corns and callosities Category: Medical Plan Patient was informed and verbally consented to the use of an ambient scribe for clinic note documentation during this visit. I discussed the patient's calluses and performed a debridement during the visit. I will prescribe ammonium lactate cream to help keep her skin soft and moisturized. I have recommended routine foot care every 9 weeks. - The patient's calluses were debrided. - A prescription for ammonium lactate cream was sent to the pharmacy to help soften the skin on her feet. - Advised patient to wear supportive shoe gear and to avoid barefoot walking. - Advised continued routine foot care every 9 weeks. RTC in 9 weeks. Orders: Orders AMB Debridement/Avulsion Podiatry 09/20/25 B35.1 - Tinea unguium, I73.9 - Peripheral vascular disease, unspecified, L84 - Corns and callosities, L85.8 - Other specified epidermal thickening, M79.671 - Pain in right foot, M79.672 - Pain in left foot Medications: New ammonium lactate 12% 1 appl topical DAILY 385 grams 1RF L84 - Corns and callosities, L85.8 - Other specified epidermal thickening Coding Level of Care Code New Pt Level 4 (80970) Diagnoses Bilateral foot pain M79.671; M79.672 Tinea unguium B35.1 PVD (peripheral vascular disease) I73.9 Other specified epidermal thickening L85.8 Intractable plantar keratosis L84 CPT Codes Skin Debridement - CPT: 64294-Eyuqeowvilj of Callus (5+) ([id number]) Time Spent (min) 55 Comment 10 mins for procedure
[2025-09-20 13:42] VITALS: BMI 29.2
--- OUTSIDE RECORDS SUMMARY | 2025-09-20 18:57 | XMS_ITS | Patient Health Record ---
Author Organization [facility] [place] Address [address] [place] [address] Care Team Providers Care Fig Washer Name Role Phone Jeremy Mcgee Unavailable [phone] Migration, Provider Unavailable Unavailable Carolina Franco Unavailable [phone] Allergies Allergen (clinical drug ingredient) Drug/Non Drug [...] Status W/U Status Risk Notes Problem Hyperlipidemia (25511085) Hyperlipidemia, unspecified (E78.5) Active confirmed Vital Signs [...] Location Date Provider Diagnosis [facility] [place] [address] [address] 11/25/2024 Provider Migration [facility], [address] [address] 12/23/2024 Provider Migration [facility] [place] [address] [address] 12/23/2024 Jeremy Mcgee [facility] [place] [address] [address] 05/02/2025 Carolina Franco [facility] [place] [address] [address] 05/24/2025 Carolina Joan Right foot pain M79.671 [facility] [place] [address] [address] 08/01/2025 Carolina Franco [facility] [place] [address] [address] 05/25/2025 Carolina Franco [facility] [place] [address] [address] 08/12/2025 Carolina Franco Hyperlipidemia, unspecified E78.5 Assessments Encounter Date Diagnosis (ICD Code) Assessment Notes Treatment Notes Treatment Clinical Notes Section Notes 05/24/2025 Right foot pain (ICD-10 - M79.671) 08/12/2025 Hyperlipidemia, unspecified (ICD-10 - E78.5) Plan Of Treatment Next Appt Details Provider Name:Carolina Franco, 09/22/2025 10:30:00 AM, [address] [facility], [address], [place], [address], [phone] Insurance Providers Payer Name Payer Address Payer Phone Subscriber Number Group Number Insured Name Patient Relationship to Insured Coverage Start Date Coverage End Date A [employer] [address] [place] [address] [id number] HEIDY WOOD Self - patient is the insured [facility] [address] [place] [address] [id number] HEIDY WOOD Self - patient is the insured Medical (General) History Medical History History ICD Code GI-DR RICHARD REILLY-ENDOCRINOLOGY UROLOGY PULMONOLOGY-DR FLEMING Surgical History Surgery Date(Month/Year) LUMBAR 04/30 ROTATOR CUFF RIGHT 04/03 Hospitalization History Reason Date(Month/Year) FELL 12/07
--- OUTSIDE RECORDS SUMMARY | 2025-09-20 18:58 | XMS_ITS | Data Portability ---
Author Organization [facility] [place] Address [address] [place] [address] Care Team Providers Care Personnel Psychologist Name Role Phone MIKE STORM Primary Care Provider Assessment Encounter Date Assessment Date Assessment LastModified [...] rotator cuff protective measures. She can take rkwh-dhj-yhlucup pain medication for symptomatic relief. She agrees [...] Dr. Yin no longer comes up to [place] with her insurance not allowing her to come to [place] I will refer her to Dr. Michael for surgical consultation evaluation. In the meantime she should continue with stretching exercises and rotator cuff protective measures. She can certainly take bxzz-ywv-shcourw pain medication for symptomatic relief. We opted [...] surgeon referral - . MRI performed at [facility] December 10, 2023 left shoulder impingement , rotator cuff tear os acromiale referral for surgical consultatio n 2023 024 diane 25 Not available 4 09:05:31 Procedures None recorded. Surgeries None recorded. Imaging XR, shoulder, 2 or more view 2023 024 [email or web address] [facility], [address], [place], [address], 4 12:23:05 MRI, shoulder, w/o contrast - Left shoulder weakness, impingement syndrome, rule out rotator cuff tear 2023 024 CHAPIN Not available 4 13:43:38 XR, shoulder, 1 view 2022 023 [email or web address] [facility], [address], [place], [address], 3 14:10:50 Medication Orders None recorded. Patient TargetsNo targets recorded. Patient Instructions Encounter Date Encounter Id Patient Instructions Last Modified By Organization Details Last Modified Time 11/27/2023 [id number] X-rays at today' s visit of the left shoulder reveal AC joint arthrosis, joint space narrowing, mild glenohumeral subchondral sclerosis with otherwise well-maintained joint space, type II acromion no acute bony abnormality Not available 12/02/2023 07:49:13 Reason for Referral Orthopedic Surgeon Referral for Impingement syndrome of left shoulder region . MRI performed at [facility] December 10, 2023 left shoulder impingement, rotator [...] and Address Organization Details Recorded Time Problem 02508627 Active No known active problems Not Available [facility] 5 00:34:33 Impingeme nt syndrome of left shoulder region 98074514505 9104 Active 2023 ELSA PRICE PA-C [address], [place], [address] , [place] [facility] 4 07:49:24 Shoulder girdle weakness 756860545 Active 2023 ESLA PRICE PA-C [address], [place], [address] , [place] [facility] 4 07:49:29 Left os acromiale 31562691143 495739 Active 2023 ELSA PRICE PA-C [address], [place], [address] , [place] [facility] 4 14:00:10 Full thickness rotator cuff tear 530301377 Active 2023 ELSA PRICE PA-C [address], [place], [address] , [place] [facility] 4 14:00:28 Problem Notes None recorded. Procedures Surgical History Date Name Laterality Status Provider Name and Address Organization Details Recorded Time 10/13/19 13 hysterectomy completed Lori Smith [place] [facility] 02/07/2023 11:24:30 10/13/18 93 removal of pilonidal cyst completed Lori Escalanterell [place] [facility] 02/07/2023 11:24:18 10/13/18 67 section completed Lori Escalanterell [place] [facility] 02/07/2023 11:24:03 Imaging Results None recorded. Procedure Notes None recorded. Medical Equipment None Reported. Allergies Allergen ID Allergen Name Allergen Category Reaction Reaction Severity Criticality Documentation Date Start Date Code Code System Note Provider Name and Address Organization Details Recorded Time 3170 Cipro medicatio n Not available Not available Not available 02/07/202300230 3 RxNorm Lori Smith [facility], [place] [facility] 11:21:22 20630 amoxicill in / clavulana te medicatio n Not available Not available Not available 07/05/20252021 36504 RxNorm Not Available [facility] 5 01:27:39 84757 prednison e medicatio n Not available Not available Not available 07/05/20252021 8640 RxNorm Not Available [facility] 5 01:27:39 80572 ciproflox acin medicatio n Not available Not available Not available 07/05/20252017 2551 RxNorm Other react ion(s ): OTHER , Sindi ntrav enous cause s redne ss ?Of the arm she ?Had the IV in Not Available [facility] 5 01:27:39 Medications Name Sig Start Date [...] Updated DateTime 11/27/2023 165.1 cm 27.3 kg/m2 01174.[address] [place] [facility] 11/27/2023 11:08:13 Social History None recorded. Functional Status Question Answer Note LastModified by Organization D etails LastModified Time What is your level of alcohol consumption? None [email or web address] Information not available 02/07/2023 Mental Status None recorded. Family History Relationship Description Onset Age of this Age Resolved Age Notes LastModified by Organization Details LastModified Time Father Family history of malignant neoplasm [email or web address] Not available 02/07 11:23:13 Father Hypertensive disorder Not available 02/07 11:23:25 Brother Hypertensive disorder [email or web address] Not available 02/07 11:23:30 Mother Hypertensive disorder [id number] Not available 02/07 11:23:32 Mother Hyperlipidem ia [id number] Not available 02/07 11:23:48 Medical History Condition [...] Anemia N Brain Injury N Heart Attack ([place]) N Osteopenia N Diabetes N Bleeding Disorder [...] IMO Codes Diagnosis Note [id number] [facility]UD [facility]ICH [facility] [address] [facility] [address] [place] [address] 02/07/2023 10:45:41 02/07/2023 11:19:54 Pain of right shoulder joint 2606899078 9406713 M25.511 33155 ELIUD ALDRICH [facility] [address] [facility] [address] [place] [address] 11/27/2023 10:42:23 11/27/2023 11:27:46 Pain of left shoulder joint 4975701141 8604470 M25.512 Impingemen t syndrome of left shoulder region 3863670397 14305 M75.42 Shoulder g irdle weakness 260223889 M99.07 31423 ELIUD ALDRICH [facility] [address] [facility] [address] [place] [address] 12/11/2023 10:15:51 12/11/2023 10:52:21 Impingement syndrome of left shoulder region 1463886047 10311 M75.42 Full thick ness rotator cuff tear 014242488 M75.122 Left os acromiale 638560 8805 0760909 M89.212 Health Concerns Section Related Observation LastModified by Organization Detai ls LastModified Time None Recorded Concern Status LastModified by Organization Details LastModified Time None Recorded Advance Directives Directive None Recorded Payers Insurance Date Sequence Insurance Name Policy Number Policy Alcantara Covered Member ID Alcantara Member ID Guarantor Name 12/08/2023 2 [facility] (MEDICARE SUPPLEMENT) Heidy Bellkins [id number] Heidy Bellkins 11/24/2023 1 [place]: [employer] Heidy Yamilex [id number] Heidy [place] 11/27/[address] [facility] [employer] PLAN [id number] Heidy Bellkins [id number] Heidy Bellkins Notes Date Note Type [...] doing well otherwise. ELSA PRICE PA-C [address], [address], [place] [facility] 02/07/2023 11:44:00 11/27/2023 text/html Pleasant 77-year-old [...] acute bony abnormality ELSA PRICE PA-C [address] [address], [place], [address], [place] [facility] 12/02/2023 07:50:33 12/11/2023 text/html Pleasant 77-year-old female following up on her MRI of her left shoulder with impingement syndrome rotator cuff tendinosis with small full-thickness tearing and os acromiale. Patient states unchanged left shoulder pain which waxes and wanes. Here for follow-up and treatment plan. [facility] [id number] [place] [id number] Patient: HEIDY KAMINSKI/Age/Sex: 1945 - 77 - FUnit#: [id number] Location/Status: SPDIMRI/REG CLIAccount#: [id number] [facility] ELSA PRICE MR Shoulder LT WO [...] 1320Sign date/Time: 12/10/23 1334 ELSA PRICE PA-C [address] [place] [address], [address], [place] [facility] 12/11/2023 14:01:41 OBGyn Episode No OBEpisode recorded.
--- OUTSIDE RECORDS SUMMARY | 2025-09-20 18:58 | XMS_ITS | Clinical Summary ---
Author Organization [facility] Prior to 03/12/25 Address [address] [place] [address] Care Team Providers Care Asphalt Surface Heater Operator Name Role Phone Carlos Velasquez MD Primary Care Provider [phone] Allergies Active Allergy Reactions Criticality Noted Date [...] age to complete this topic Care Teams Asphalt Surface Heater Operator Relationship Specialty Start Date End Date Carlos Velasquez MD [address] [place] [address] PCP - General Internal Medicine 12/25/21
--- OUTSIDE RECORDS SUMMARY | 2025-09-20 18:59 | XMS_ITS | Patient Health Record ---
Author Organization [facility] Address [address] [place] [address] Care Team Providers Care Director Of Premium Seat Sales Name Role Phone MIKE STORM MD Primary Care Provider Unavailab RENETTA Garcia Unavailable [phone] Allergies Allergen (clinical drug ingredient) Drug/Non Drug Allergy documented on EMR Reaction Allergy Type Onset Date Status IV CIPRO (uncoded) Unknown Allergy A ctive Reason For Referral No Information Medications Medication SIG (Take, Route, Frequency, Duration) Notes Start Date End Date Status Lisinopril-hydroCHLOR Othiazide 10-12.5 MG Tablet 1 tab(s) orally once a day Active PRO AIR CFC FREE 90 MCG/INH AEROSOL 2 PUFF(S) INHALED 4 TIMES A DAY PRN *Please review for potential replacement for e-prescription and drug interaction check* Active Vitamin D 25 MCG (1000 UT) Tablet 1 tab(s) orally once a day Active Potassium - TABLET 20 MEQ PACKETS TAKE FOR 2 WEEKS EVERY THREE MONTHS NAME ONLY Conversion from [facility] Review and pick correct strength-formulati on from [employer] options. If intended option is not shown, discontinue and re-order from Quick Search. Active OXYGEN - QHS *Please review f or potential replacement for e-prescription and drug interaction check* Active Advair Diskus 100-50 MCG/DOSE Miscellaneous as directed Inhalation Active CPAP QHS *Please review f or potential replacement for e-prescription and drug interaction check* Active Omeprazole 20 MG Capsule Delayed Release 1 cap(s) orally once a day Active Fluticasone Propionate 50 MCG/ACT Suspension 1 spray(s) intranasally BID Active Simvastatin 20 MG Tablet 1 tab(s) orally once a day (at bedtime) Active Aspirin EC 81 MG Tablet Delayed Release 1 tab(s) orally once a day Active Social History Tobacco Use: Social History Observation Description Date Details (start date - stop date) Former Smoker NA - NA Social History Tobacco Use: Social Info Question Answer Notes Smoking Are you a: former smoker Additional Details Category Social Info Options Details General Occupation: [employer] involuntary [employer]. 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 confirmed Problem Toxic thyroid nodule (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) 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 Problem History of radiation exposure (167807190) History of radioactive iodine thyroid ablation (Z92.3) Active confirmed Plan Of Treatment Future Test Test Name Order Date FREE T4 04/07/2017 TSH 04/07/2017 TSH WITH REFLEX TO FT4 11/04/2022 Insurance Providers Payer Name Payer Address Payer Phone Subscriber Number Group Number Insured Name Patient Relationship to Insured Coverage Start Date Coverage End Date MEDICARE [employer] [address] [place] [address] [phone] [id number] HEIDY WOOD Self - patient is the insured 3 [facility] MEDICARE COMPLIMENT PLAN [address] [place], [place] [address] [phone] [id number] HEIDY WOOD Self - patient is the insured Medical (General) History Medical History History ICD Code asthma hypercholesterolemia Gastroesophageal reflux disease (GERD) hypertension 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 US 11/28. Bilateral nodules; Rt sup 5 mm, Rt inf. 50x96e54 mm.Lt sup 8 mm, Lt inf. 41m17e89 mm-latter toxic nodule Suppressed TSH w/ nl FT4/nl FT3 in 07/27--24 hr RAIU 26.8 and Tc scan pos for Lt inf. hyperfunctioning nodule w/ suppression of remainder gland in 11/28-[facility]. BECKER ablation w/ 29 mCI on 12/15/15 L lung infiltrate 2015 scoliosis sleep apnea - on CPAP Surgical History Surgery Date(Month/Year) right rotator cuff 03/2020 interbody fusion [facility] 04/12/19 open lung biopsy 2014 Pilonidal Cyst 1993 hysterectomy 2003 Caesarian section 1968 Caesarian section 1967 Hospitalization History Reason Date(Month/Year) 4 days 04/12/19
--- OUTSIDE RECORDS SUMMARY | 2025-09-20 19:02 | XMS_ITS | Continuity of Care Document ---
Author Organization [facility] [address] [facility] [address] [place] [address] Phone [phone] Care Team Providers Care Wire Coiler Name Role Phone Carlos Velasquez M.D. Care Team Information Receive r [phone] Everardo YEAGER Care Team Information Receiv er [phone] Problems Active Problems Provider Date Hypothyroidism Ziggy Calderon M.D. Onset: 0 10/23/2023 Multinodular goiter Ziggy Cadleron M.D. Onse t: 10/23/2023 Asthma Ziggy Calderon [...] Qnty Indications Order ing Provider Date Levothyroxine Howsde24bxm Tablets Take 1 Tablet By Mouth Every Day 90tabs Ziggy Calderon M.D. 04/27/2024 Breo [id number]/Act Aerosol Inhale 1 puff Into The Lungs Daily For 30 Days. Tereza Slaughter MD Lisldrmltqi75kh Tablets Take 1 Tablet By Mouth Every Day Carlos Velasquez M.D. Lisinopril-Hydrochloro -43.5mg Tablets Take 1 Tablet By Mouth Every Day Carlos Velasquez M.D. Albuterol Sulfate [id number](90Base) mcg/Act Aerosol Inhale 2 Puffs Into The Lungs Every 4 Hours as Needed For Wheezing For Up To 30 Tereza Slaughter MD [id number] Capsules DR Take 1 Capsule By Mouth Every Day Carlos Velasquez M.D. Potassium Ztrqvizq50Iqx Packet Dissolve 1 Packet as Directed Once A Day Carlos Velasquez M.D. Fluticasone Kexvalpbfn28wfq/Act Suspension Winn 2 Sprays Into Both Nostrils Twice A [...] 0 TSH With Reflex To FT4 10/23/2023 [facility] TSH With Reflex To [...]
--- OUTSIDE RECORDS SUMMARY | 2025-09-20 19:03 | XMS_ITS | Clinical Summary ---
Author Organization 175 [facility] Address [address] [place] [address] Phone Care Team Providers Care Telesales Representative Name Role Phone Carolina Franco Primary Care Provider Allergies Active Allergy Reactions Criticality Noted Date [...] mcg/actuation inhalerIndication s:Chronic obstructive pulmonary disease, unspecified (CMS/HCC V24, CMS/HCC V28) INHALE 2 PUFFS INTO THE LUNGS [...] Active Additional Information Patient not taking.Reported on 08/09/2025 bisacodyL (DULCOLAX) 5 mg EC tablet Take 2 tablets by mouth right before beginning bowel prep. See instructions provided by the office 2 tablet 05/06/20 Active Additional Information Patient not taking.Reported on 08/09/2025 Breo Ellipta 200-25 mcg/dose inhaler INHALE 1 PUFF INTO THE LUNGS DAILY FOR 30 DAYS. 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 Impingement syndrome of left shoulder region Weakness of shoulder 12/02/2023 Asthma 10/23/2023 Multinodular goiter 10/23/2023 Supplemental oxygen dependent 03/03/2019 DIONICIO (obstructive sleep apnea) 05/28/2018 Thyroid nodule 05/28/2018 Chronic obstructive pulmonary disease 05/06/2018 ILD (interstitial lung disease) 05/06/2018 Carpal tunnel syndrome 04/16/2018 GERD (gastroesophageal reflux disease) 8 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 04/16/2018 Overview (08/05/2024): Chronic altered sensation RLE since 2011 Hyperlipidemia 04/16/2018 Hypertension 04/16/2018 Lumbosacral spondylosis with radiculopathy 04/16 Trochanteric bursitis 04/16/2018 Type 2 diabetes, controlled, with neuropathy 02/2018 Encounters Date Type Department Care Team Description 09/12/2025 9:35 AM EST Lab Draw Station - [address] [phone] Encounter for general adult medical examination with abnormal findings (Primary Dx); Acquired hypothyroidism; Genitourinary symptoms; Diabetes mellitus (CMS/HCC V24, CMS/HCC V28); Hyperlipidemia; Vitamin B12 deficiency anemia; Avitaminosis D 08/09/2025 8:50 AM EDT Office Visit Gastroenterology [facility] 175 [facility] [address] [phone] Patti Chowdhury PA History of colon polyps (Primary Dx); Gastroesophageal reflux disease, unspecified whether esophagitis present; Incontinence of feces, unspecified fecal incontinence type 08/05/2025 10:55 AM EDT - 08/05/2025 11:59 PM EDT Hospital Encounter [facility] Ultrasound [address] [place] [phone] Pain in right lower leg Discharge Disposition: Home or Self Care 08/03/2025 Telephone Gastroenterology [facility] [address] [phone] Patti Chowdhury PA from Last 3 Months Immunizations Immunization Administration Dates Next Due COVID-19 (Moderna) 6mo to less than 12yr 022 Hepatitis B (Ulnonvg-O-Vaadf , Recombivax HB-Adult) 19yo and older 02/12/1992,09/17/1991,08/17/1991 [...] Date Site/Laterality Comments OTHER SURGICAL HISTORY PROCEDURE: MT EXCISION PILONIDAL CYST/SINUS COMPLICATED SECTION PROCEDURE: HISTORICAL DELIVERY; COMMENT: x2 HYSTERECTOMY PROCEDURE: HISTORICAL HYSTERECTOMY LUMBAR LAMINECTOMY PROCEDURE: HISTORICAL LUMB LAMINECTOMY Medical History Medical History Date Comments Carpal tunnel syndrome 04/16/2018 DX:Carpal tunnel syndrome GERD (gastroesophageal reflux disease) 8 DX:GERD (gastroesophageal reflux disease) 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 ([facility] V24, [facility] V28) 04/16/2018 DX:Hemiparesis affecting rig ht side as late effect of stroke ([facility]); COMMENT: Chronic altered sensation RLE since 2011 History of pneumonia 04/16/2018 DX:History of pneumonia; COMMENT: Legionella 08/2014, hospitalized for dehydration Hyperlipidemia 04/16/2018 DX:Hyperlipidemi a Hypertension 04/16/2018 DX:Hypertension Lumbosacral spondylosis with radiculopathy 04/16/2018 DX:Lumbosacral spondylosis w ith radiculopathy Trochanteric bursitis 04/16/2018 DX:Trochan teric bursitis Type 2 diabetes, controlled, with neuropathy (CMS/[facility] V24, [facility] V28) 04/16/2018 DX:Type 2 diabet es, controlled, with neuropathy ([facility]) DIONICIO (obstructive sleep apnea) 05/28/2018 DX :DIONICIO (obstructive sleep apnea) History of hyperthyroidism 05/28/2018 DX:Hi story of hyperthyroidism; COMMENT: S/p BECKER Thyroid nodule 05/28/2018 DX:Thyroid nodul e Fecal incontinence DX:Fecal inco ntinence History of lumbar surgery DX:His tory of lumbar surgery Hypothyroid COPD (chronic obstructive pu lmonary disease) ([facility] V24, [facility] V28) TIA (transient ischemic attack) Family History Medical History Relation Name Comments Brain cancer Father COPD Mother Relation Name Status Comments Father Mother Social History Tobacco Use Types Packs/Day Years Used Date Smoking Tobacco: Former Smokeless Tobacco: Never Alcohol Use Standard Drinks/Week Comments No 0 (1 standard drink = 0.6 oz pur e alcohol) Interpersonal Safety Answer Date Record ed Physical Abuse Unrecognized value 05/20/2025 Verbal Abuse Unrecognized value 05/20/2025 Comments Unknown Sex and Gender Information Value Date Recorded Sex Assigned at Female 05/20/2025 11:05 PM EDT Legal Sex Female 7:16 PM EST Gender Identity Not on file Sexual Orientation Not on file Last Filed Vital Signs Vital Sign Reading Time Taken Comments Blood Pressure 138/82 08/09/2025 9:05 AM EDT Pulse 69 06/06/2025 9:34 AM EDT Temperature 36.1 C (97 F) 06/06/2025 9:34 AM EDT Respiratory Rate 16 06/06/2025 9:34 AM EDT Oxygen Saturation 98% 06/06/2025 9:34 AM EDT Inhaled Oxygen Concentration - - Weight 75.8 kg (167 lb) 08/09/2025 9:05 AM EDT Height 162.6 cm (5' 4 ) 08/09/2025 9:05 AM EDT Body Mass Index 28.67 08/09/2025 9:05 AM EDT Plan of Treatment Upcoming Encounters Date Type Department Care Team (Late st Contact Info) Description 12/05/2025 9:45 AM EST Office Visit Pulmonology - [place] 175 [facility] [address] [place] [phone] Tereza Slaughter MD [address] [place] [phone] 02/28/2026 10:10 AM EDT Office Visit Gastroenterology - 299 [facility] 299 [facility] [address] [place] [phone] Patti Chowdhury PA 299 [facility] [address] [place] [address] Health Maintenance Due Date Last Done Comments [...] Diabetes: Blood Sugar Control Test (HGBA1C) 06/25/2025 09/12/2025, 12/23/2024 Pneumococcal Vaccine: 50+ Years (3 of 3 - PCV20 or PCV21) 07/03/2025 07/03/2020, 07/03/2010 Diabetes: Annual GFR (Glomerular Filtration Rate) 05/02/2026 09/12/2025, 05/02/2025, 01/04/2025, Additional history exists Hypertension/CHF/CAD Annual BMP Blood Test 05/02/2026 09/12/2025, 05/02/2025, 01/04/2025, Additional history exists Falls Risk Assessment 05/20/2026 05/20/2025 Cholesterol Screening (Lipid Panel) 12/23/2029 09/12/2025, 12/23/2024 Colorectal Cancer Screening: Colonoscopy 05/20/2030 05/20/2025 DTaP,Tdap,and Td Vaccines (4 - Td or Tdap) 05/22/2034 05/22/2024, 01/11/2016, 08/04/2006 Hepatitis B Vaccines Completed 02/12/1992, 09/17/1991, 08/17/1991 Breast Cancer Screening Discontinued 11/24/19, 11/18/2021, 11/12/2020, Additional history exists HIB Vaccines [...] this topic Medical Devices Implanted Type Area Manufacturing Plant Technician Device Identifier Shelf Expiration Date Model / Serial / Lot Implants Implants Right: Shoulder Implants Implants Bilateral: Spine Lumbar Procedures Procedure Name Priority Date/Time Associated Diagnosis Comments URINALYSIS WITH REFLEX MICROSCOPIC AND CULTURE Routine 09/12/2025 9:53 AM EST Encounter for general adult medical examination with abnormal findings Acquired hypothyroidism Genitourinary symptoms Diabetes mellitus (CMS/HCC V24, CMS/HCC V28) Hyperlipidemia Vitamin B12 deficiency anemia Avitaminosis D CULTURE URINE Routine 09/12/2025 9:53 AM EST Encounter for general adult medical examination with abnormal findings Acquired hypothyroidism Genitourinary symptoms Diabetes mellitus (CMS/HCC V24, CMS/HCC V28) Hyperlipidemia Vitamin B12 deficiency anemia Avitaminosis D COMPREHENSIVE METABOLIC PANEL Routine 09/12/2025 9:46 AM EST Encounter for general adult medical examination with abnormal findings Acquired hypothyroidism Genitourinary symptoms Diabetes mellitus (CMS/HCC V24, CMS/HCC V28) Hyperlipidemia Vitamin B12 deficiency anemia Avitaminosis D LIPID PANEL WITH REFLEX TO DIRECT LDL Routine 09/12/2025 9:46 AM EST Encounter for general adult medical examination with abnormal findings Acquired hypothyroidism Genitourinary symptoms Diabetes mellitus (CMS/HCC V24, CMS/HCC V28) Hyperlipidemia Vitamin B12 deficiency anemia Avitaminosis D VITAMIN B12 Routine 09/12/2025 9:46 AM EST Encounter for general adult medical examination with abnormal findings Acquired hypothyroidism Genitourinary symptoms Diabetes mellitus (CMS/HCC V24, CMS/HCC V28) Hyperlipidemia Vitamin B12 deficiency anemia Avitaminosis D COMPLETE BLOOD COUNT Routine 09/12/2025 9:46 AM EST Encounter for general adult medical examination with abnormal findings Acquired hypothyroidism Genitourinary symptoms Diabetes mellitus (CMS/HCC V24, CMS/HCC V28) Hyperlipidemia Vitamin B12 deficiency anemia Avitaminosis D THYROXINE FREE Routine 09/12/2025 9:46 AM EST Encounter for general adult medical examination with abnormal findings Acquired hypothyroidism Genitourinary symptoms Diabetes mellitus (CMS/HCC V24, CMS/HCC V28) Hyperlipidemia Vitamin B12 deficiency anemia Avitaminosis D HEMOGLOBIN A1C Routine 09/12/2025 9:46 AM EST Encounter for general adult medical examination with abnormal findings Acquired hypothyroidism Genitourinary symptoms Diabetes mellitus (CMS/HCC V24, CMS/HCC V28) Hyperlipidemia Vitamin B12 deficiency anemia Avitaminosis D THYROID STIMULATING HORMONE Routine 09/12/2025 9:46 AM EST Encounter for general adult medical examination with abnormal findings Acquired hypothyroidism Genitourinary symptoms Diabetes mellitus (CMS/HCC V24, CMS/HCC V28) Hyperlipidemia Vitamin B12 deficiency anemia Avitaminosis D TORRES URINE CULTURE TUBE Routine 09/12/2025 9:37 AM EST Encounter for general adult medical examination with abnormal findings Acquired hypothyroidism Genitourinary symptoms Diabetes mellitus (CMS/HCC V24, CMS/HCC V28) Hyperlipidemia Vitamin B12 deficiency anemia Avitaminosis D URINALYSIS WITH REFLEX MICROSCOPIC AND CULTURE Routine 09/12/2025 9:37 AM EST Encounter for general adult medical examination with abnormal findings Acquired hypothyroidism Genitourinary symptoms Diabetes mellitus ([facility] V24, [facility] V28) Hyperlipidemia Vitamin B12 deficiency anemia Avitaminosis D VAS US DUPLEX LOWER EXT VENOUS RIGHT Routine 08/05/2025 11:59 AM EDT Pain in right lower leg COLONOSCOPY Routine 05/20/2025 1:03 PM EDT History of colon polyps GENEVA SCREENING DIGITAL Routine 11/24/2022 4:36 PM EST Encounter for screening mammogram for malignant neoplasm of breast from Last 3 Months or Most Recently Relevant to Health Maintenance Results * (ABNORMAL) Urinalysis with reflex microscopic and culture (09/12/2025 9:53 AM EST) Specific [place] Urine 1.022 1.003 - 1.030 LAB URINALYSIS - AUTOMATED METHOD 09/12/2025 11:07 AM [facility] LAB pH, Urine 5.5 5.0 - 8.0 pH LAB URINALYSIS - AUTOMATED METHOD 09/12/2025 11:07 AM [facility] LAB Leukocytes, Urine Small(A) Negative LAB URINALYSIS - AUTOMATED METHOD 09/12/2025 11:07 AM [facility] LAB Nitrite, Urine Negative Negative LAB URINALYSIS - AUTOMATED METHOD 09/12/2025 11:07 AM [facility] LAB Protein, Urine Trace <=Trace mg/dL LAB URINALYSIS - AUTOMATED METHOD 09/12/2025 11:07 AM [facility] LAB Glucose, Urine Negative Negative mg/dL LAB URINALYSIS - AUTOMATED METHOD 09/12/2025 11:07 AM [facility] LAB Ketones, Urine Trace(A) Negative mg/dL LAB URINALYSIS - AUTOMATED METHOD 09/12/2025 11:07 AM [facility] LAB Urobilinogen , Urine 0.2 0.2 - 1.0 mg/dL LAB URINALYSIS - AUTOMATED METHOD 09/12/2025 11:07 AM [facility] Bilirubin, Urine Negative Negative LAB URINALYSIS - AUTOMATED METHOD 09/12/2025 11:07 AM [facility] Blood, Urine Moderate(A) Negative LAB URINALYSIS - AUTOMATED METHOD 09/12/2025 11:07 AM [facility] RBC, Urine 15(H) 0 - 4 /HPF 09/12/2025 11:07 AM [facility] WBC, Urine 3 0 - 4 /HPF 09/12/2025 11:07 AM [facility] Squamous Epithelial, Urine >100(H) 0 - 60 /LPF 09/12/2025 11:07 AM [facility] Bacteria, Urine Few(A) Negative /HPF 09/12/2025 11:07 AM [facility] Hyaline Casts, Urine 15(H) 0 - 3 /LPF 09/12/2025 11:07 AM [facility] Mucus, Urine Small None /HPF 09/12/2025 11:07 AM [facility] Urine Urine specimen obtained by clean catch procedure / Unknown Non-blood Collection / Unknown 09/12/2025 9:53 AM EST 09/12/2025 10:18 AM EST Carolina YEAGER LAB URINE ORDERABLES Final Result [facility] [address] [place] [address], * Culture urine (09/12/2025 9:53 AM EST) Culture, Urine No growth 09/13/2025 9:57 AM [facility] Urine Urine specimen obtained by clean catch procedure / Unknown Non-blood Collection / Unknown 09/12/2025 9:53 AM EST 09/12/2025 11:07 AM EST Carolina YEAGER LAB MICROBIOLOGY - GENERAL ORDERABLES Final Result [facility] [address] [place] [address], [place] [phone] * Lipid panel with reflex to direct LDL (09/12/2025 9:46 AM EST) Cholesterol 169 0 - 200 mg/dL 09/12/2025 11:37 AM EST [facility] Triglycerides 85 0 - 150 mg/dL 09/12/2025 11:37 AM EST [facility] HDL 64 >=40 mg/dL 09/12/2025 11:37 AM [facility] LDL Calculated 88 0 - 100 mg/dL 09/12/2025 11:37 AM EST [facility] Comment:Estimated LDL Calcul ated using equation: Total cholesterol - HDL cholesterol - (Triglycerides/5) VLDL Cholesterol Mars 17 mg/dL 09/12/2025 11:37 AM EST [facility] Non HDL Chol. (LDL+VLDL) 105 <145 mg/dL 09/12/2025 11:37 AM [facility] Chol/HDL Ratio 2.6 0.0 - 4.4 09/12/2025 11:37 AM [facility] Blood Venous blood specimen / Unknown Venipuncture / Unknown 09/12/2025 9:46 AM EST 09/12/2025 10:12 AM EST us Carolina YEAGER LAB BLOOD ORDERABLES Final Result [facility] [address] [place] [address], [place] [phone] * (ABNORMAL) Complete blood count (09/12/2025 9:46 AM EST) [facility] WBC 4.6(L) 4.8 - 10.8 K/mcL LAB HEMETOLOGY METHOD 09/12/2025 10:42 AM [facility] RBC 4.90(H) 3.80 - 4.80 M/mcL LAB HEMETOLOGY METHOD 09/12/2025 10:42 AM [facility] Hemoglobin 13.0 11.5 - 16.0 g/dL LAB HEMETOLOGY METHOD 09/12/2025 10:42 AM [facility] Hematocrit 40.2 35.0 - 47.0 % LAB HEMETOLOGY METHOD 09/12/2025 10:42 AM [facility] MCV 82.2 79.0 - 98.0 FL LAB HEMETOLOGY METHOD 09/12/2025 10:42 AM [facility] MCH 26.6(L) 27.0 - 32.0 pcg LAB HEMETOLOGY METHOD 09/12/2025 10:42 AM [facility] MCHC 32.3 32.0 - 37.0 g/dL LAB HEMETOLOGY METHOD 09/12/2025 10:42 AM [facility] RDW 15.5(H) 11.0 - 15.0 % LAB HEMETOLOGY METHOD 09/12/2025 10:42 AM [facility] Platelets 180 130 - 400 K/mcL LAB HEMETOLOGY METHOD 09/12/2025 10:42 AM [facility] MPV 11.7(H) 7.0 - 11.0 FL LAB HEMETOLOGY METHOD 09/12/2025 10:42 AM [facility] NRBC 0.0 <1.0 % LAB HEMETOLOGY METHOD 09/12/2025 10:42 AM [facility] NRBC Absolute 0.00 <0.10 K/mcL LAB HEMETOLOGY METHOD 09/12/2025 10:42 AM EST [facility] Blood Venous blood specimen / Unknown Venipuncture / Unknown 09/12/2025 9:46 AM EST 09/12/2025 10:18 AM EST us Carolina YEAGER LAB BLOOD ORDERABLES Final Result [facility] [address] [place] [address], [place] [phone] * Thyroid stimulating hormone (09/12/2025 9:46 AM EST) TSH 1.54 0.40 - 4.00 mcIU/mL 09/12/2025 11:30 AM EST [facility] Blood Venous blood specimen / Unknown Venipuncture / Unknown 09/12/2025 9:46 AM EST 09/12/2025 10:12 AM EST us Carolina YEAGER LAB BLOOD ORDERABLES Final Result [facility] [address] [place] [address], [place] [phone] * Thyroxine free (09/12/2025 9:46 AM EST) Free T4 1.37 0.70 - 1.80 ng/dL 09/12/2025 11:30 AM EST [facility] Blood Venous blood specimen / Unknown Venipuncture / Unknown 09/12/2025 9:46 AM EST 09/12/2025 10:12 AM EST us Carolina YEAGER LAB BLOOD ORDERABLES Final Result [facility] [address] [place] [address], [place] [phone] * Hemoglobin A1c (09/12/2025 9:46 AM EST) [facility] Hemoglobin A1C 6.3 <6.5 % LAB CHEMISTRY METHOD 09/12/2025 2:06 PM EST [facility] Mean Bld Glu Estim. 134 mg/dL LAB CHEMISTRY METHOD 09/12/2025 2:06 PM EST [facility] Blood Venous blood specimen / Unknown Venipuncture / Unknown 09/12/2025 9:46 AM EST 09/12/2025 10:18 AM EST Carolina YEAGER LAB BLOOD ORDERABLES Final Result [facility] [address] [place] [address], [place] [phone] * (ABNORMAL) Vitamin B12 (09/12/2025 9:46 AM EST) [facility] Vitamin B-12 >2,000(H) 211 - 911 pcg/mL 09/12/2025 11:37 AM EST [facility] Blood Venous blood specimen / Unknown Venipuncture / Unknown 09/12/2025 9:46 AM EST 09/12/2025 10:12 AM EST Carolina YEAGER LAB BLOOD ORDERABLES Final Result [facility] [address] [place] [address], [place] [phone] * (ABNORMAL) Comprehensive metabolic panel (09/12/2025 9:46 AM EST) [facility] Sodium 141 133 - 145 mmol/L 09/12/2025 11:37 AM EST [facility] Potassium 3.7 3.5 - 5.5 mmol/L 09/12/2025 11:37 AM EST [facility] Chloride 100 96 - 110 mmol/L 09/12/2025 11:37 AM EST [facility] CO2 29 21 - 32 mmol/L 09/12/2025 11:37 AM [facility] Anion Gap 12(H) 3 - 11 09/12/2025 11:37 AM [facility] Glucose 137(H) 70 - 100 mg/dL 09/12/2025 11:37 AM [facility] BUN 11 5 - 25 mg/dL 09/12/2025 11:37 AM [facility] Creatinine 1.24(H) 0.50 - 1.10 mg/dL 09/12/2025 11:37 AM [facility] eGFR 45(L) >=60 mL/min/1. 73m2 09/12/2025 11:37 AM [facility] Comment:Calculation based on the Chronic Kidney Disease Epidemiology Collaboration (CKD-EPI) equation refit without adjustment for race. BUN/Creatinine Ratio 8.9 09/12/2025 11:37 AM [facility] Calcium 8.6 8.5 - 10.5 mg/dL 09/12/2025 11:37 AM [facility] AST (SGOT) 16 10 - 42 unit/L 09/12/2025 11:37 AM [facility] ALT (SGPT) 25 10 - 60 unit/L 09/12/2025 11:37 AM [facility] Alkaline Phosphatase 88 42 - 121 unit/L 09/12/2025 11:37 AM [facility] Total Protein 6.7 6.0 - 8.0 g/dL 09/12/2025 11:37 AM [facility] Albumin 4.2 3.2 - 5.0 g/dL 09/12/2025 11:37 AM [facility] Total Bilirubin 0.3 0.0 - 1.4 mg/dL 09/12/2025 11:37 AM [facility] Blood Venous blood specimen / Unknown Venipuncture / Unknown 09/12/2025 9:46 AM EST 09/12/2025 10:12 AM EST Carolina YEAGER LAB BLOOD ORDERABLES Final Result Performing Organization Address [facility]/ZIP Co de Phone Number [facility] [address] [place] [address], [place] [phone] * Torres urine culture tube (09/12/2025 9:37 AM EST) Extra Tube Hold for add-ons. 09/12/2025 12:02 PM EST [facility] Comment:Auto resulted. Urine Urine specimen obtained by clean catch procedure / Unknown 09/12/2025 9:37 AM EST 09/12/2025 10:22 AM EST [facility] URINE ORDERABLES Final Result Performing Organization Address [facility] de Phone Number [facility] [address] [place] [address], [place] [phone] * Vascular US duplex lower extremity venous right (08/05/2025 11:59 AM EDT) Anatomical Region Laterality Modality Vascular, Abdomen Ultrasound 08/05/2025 12:1 6 PM EDT Impressions 08/05/2025 12:16 PM EDT No evidence of a right lower extremity deep venous thrombosis. Popliteal cyst. -------- FINAL REPORT -------- Dictated By: Garrett Newberry Dictated Date: 08/05/2025 12:16 ET Assigned Physician: Garrett Newberry Reviewed and Electronically Signed By: Garrett Newberry Signed Date: 08/05/2025 12:16 ET Workstation ID: [id number] Transcribed By: Self Edit Transcribed Date: 08/05/2025 12:16 ET Narrative 08/05/2025 12:16 PM EDT PROCEDURE: Right lower extremity deep vein thrombosis study. HISTORY: pain. COMPARISON: None. TECHNIQUE: Grayscale, color Doppler, and spectral Doppler ultrasound evaluation of the deep venous structures of the right lower extremity. FINDINGS: The deep venous structures of the right lower extremity demonstrate normal compressibility with normal color and spectral Doppler flow and a normal response to augmentation maneuvers. There is a 4.2 x 0.7 x 3.0 cm popliteal cyst. Procedure Note Garrett Newberry MD - 08/05/2025 PROCEDURE: Right lower extremity deep vein thrombosis study. HISTORY: pain. COMPARISON: None. TECHNIQUE: Grayscale, color Doppler, and spectral Doppler ultrasoundevaluation of the deep venous structures of the right lower extremity. FINDINGS: The deep venous structures of the right lower extremity demonstrate normalcompressibility with normal color and spectral Doppler flow and a normalresponse to augmentation maneuvers. There is a 4.2 x 0.7 x 3.0 cm popliteal cyst. IMPRESSION: No evidence of a right lower extremity deep venous thrombosis. Popliteal cyst. -------- FINAL REPORT -------- Dictated By: Garrett Newberry Dictated Date: 08/05/2025 12:16 ET Assigned Physician: Garrett Newberry Reviewed and Electronically Signed By: Garrett Newberry Signed Date: 08/05/2025 12:16 ET Workstation ID: [id number] Transcribed By: Self Edit Transcribed Date: 08/05/2025 12:16 ET [place] YEAGER CV VASCULAR PROCEDURES Annabel jumana Result * COLONOSCOPY Anesthesia - MAC; [facility] ENDOSCOPY (05/20/2025 1:03 PM EDT) Anatomical [...] to age. Narrative 05/20/2025 1:09 PM EDT [facility] Patient Name: Heidy Kaminski Procedure Date: [...] verified by the physician, the nurse, the member of parliament and the hazmat technician in the pre-procedure area in the [...] retroflexion views. Procedure Code(s): --- Professional --- 63100, Colonoscopy, flexible; with removal of tumor(s), polyp(s), or other lesion(s) by snare technique Diagnosis Code(s): --- Professional --- D12.0, Benign neoplasm of cecum CPT copyright 2020 [employer]. All rights reserved. The codes documented in this report are preliminary and upon retail associate manager bilingual review may be revised to meet current compliance requirements. Abram Canas MD 05/20/2025 1:09:18 PM This report has been signed electronically.Abram Canas MD Number of Addenda: 0 Note Initiated On: 05/20/2025 12:40 PM Scope Withdrawal Time: 0 hours 12 minutes 53 seconds Scope In: 12:49:48 PM Scope Out: 1:06:44 PM Endoscopy Department at [facility] - [address] [place] [id number] Procedure Note Abram Canas MD - 05/20/2025 [facility] GI Patient Name: Heidy Kaminski Procedure Date: [...] the physician, the nurse, theanesthetist and the hazmat technician in the pre-procedure area in the [...] retroflexion views. Procedure Code(s): --- Professional --- 51585, Colonoscopy, flexible; with removal of tumor(s), polyp(s), or other lesion(s) by snare technique Diagnosis Code(s): --- Professional --- D12.0, Benign neoplasm of cecum CPT copyright 2020 [employer]. All rights reserved. The codes documented in this report are preliminary and upon retail associate manager bilingual reviewmay be revised to meet current compliance requirements. Abram Canas MD 05/20/2025 1:09:18 PM This report has been signed electronically.Abram Canas MD Number of Addenda: 0 Note Initiated On: 05/20/2025 12:40 PM Scope Withdrawal Time: 0 hours 12 minutes 53 seconds Scope In: 12:49:48 PM Scope Out: 1:06:44 PM Endoscopy Department at [facility] - [address] [place] [id number] IMPRESSION: - One 4 mm polyp in the cecum, removed with a cold snare. Resected and retrieved. - The examination was otherwise normal on directand retroflexion views. Recommendation: - Discharge patient to home. - Await pathology results. - No repeat colonoscopy due to age. us Abram Canas MD GI~PROCEDURE ORDERABLES Fin al Result * [facility]EVA SCREENING DIGITAL (11/24/2022 4:36 PM EST) Anatomical Region Laterality Modality Mammography 11/21/2022 9:5 9 AM EST Narrative 11/24/2022 4:36 PM EST Diagnostic Imaging Department [address] [place] [id number] Patient: LISSETH KAMINSKIRA /Age/Sex: 1945 - 76 - F Unit#: [id number] Location/Status: SPDIMAM/PRE CLI Mnemonic[facility] Ordering Physician: GISELLA JEAN MD [place] Screening [...] the MLO projection. 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 TISSUE DENSITY: a. [...] Routine screening mammogram BILATERAL in 1 year. [address]5004, [address]777 3342F, 7025F Dictating Physician: ADORE CASTILLO MD Electronically Signed by: ADORE CASTILLO MD Dic Date/Time: 11/24/22 1635 Sign date/Time: 11/24/22 1636 Procedure Note Adore Castillo MD - 11/14/2023 Diagnostic Imaging Department [address] [place] [id number] Patient: HEIDY KAMINSKIO.B./Age/Sex: 1945 - 76 - F Unit#: [id number] Location/Status: SPDIMAM/PRE CLI Mnemonic/Ordering Site[facility] Ordering Physician: GISELLA JEAN MD [facility] Screening Digital - 11/23/22 - 1006 EXAM: [facility] Screening Digital EXAM DATE AND TIME: 11/23/2022 10:07 AM HISTORY: Screening. Right breast biopsy in 2010, pathology benign.Maternal aunt had breast carcinoma. COMPARISON: 11/17/21, 11/11/20, 09/18/19 TECHNIQUE: CC and MLO views of both breasts were obtained using fullfield digital mammography. Bilateral digital breast tomosynthesis was performedin the MLO projection. Computer aided detection with [employer] 7.2-H and[employer] 3D 3.1 was employed. TISSUE DENSITY: a. [...] Routine screening mammogram BILATERAL in 1 year. [address]686, 32962 3342F, 7025F Dictating Physician: ADORE CASTILLO MD Electronically Signed by: ADORE CASTILLO MD Dic Date/Time: 11/24/22 1635 Sign date/Time: 11/24/22 1636 Gisella eJan MD IMG BI PROCEDURES Final Result from Last 3 Months or Most Recently Relevant to Health Maintenance Insurance MEDICARE [facility] Advance Directives Documents on File Type Date Recorded Patient Teletype Telegrapher Expl anation Health Care Decision (hx) 01/03/2015 [...] (hx) 01/03/2015 AD BOYD DIRECTIVE Care Teams Telesales Representative Relationship Specialty Start Date End Date Carolina Franco PA [address] [place] [id number] PCP - General 08/03/25
== END 2025-09-20 14:23 | disposition home or self-care (01) ==
LOC: HO.HPODS 13:32
PROVIDERS: PCP Physician Assistant; Visit Provider Student in an Organized Health Care Education/Training Program
DX: M79.671 Pain in right foot (principal); M79.672 Pain in left foot; I73.9 Peripheral vascular disease, unspecified; B35.1 Tinea unguium; L85.8 Other specified epidermal thickening; L84 Corns and callosities
CPT/HCPCS: 11057; 99204

== ENCOUNTER → 2025-09-20 13:31 | Outpatient (BNVA) | payer MEDICARE, OTHER, SELFPAY | PROVIDERS: PCP Physician Assistant; Visit Provider Student in an Organized Health Care Education/Training Program | DX: L84 Corns and callosities (principal); L85.8 Other specified epidermal thickening; I73.9 Peripheral vascular disease, unspecified; B35.1 Tinea unguium | CPT/HCPCS: 11057; 99202 ==

== ENCOUNTER 2025-10-10 10:13 | Outpatient (AMB) | payer MEDICARE, OTHER, SELFPAY ==
--- OUTSIDE RECORDS SUMMARY | 2024-06-02 06:30 | XMS_ITS ---
Author Organization [facility] [place] Address [address] [address] [place] [address] Care Team Providers Care Medical Economics Consultant Name Role Phone Migration, Provider Unavailable Unavailable REASON FOR VISIT HOSPITAL DISCHARGE FOLLOW UP VIIST Encounters Encounter Location Date Provider Diagnosis [facility] [place] [address] [facility] [address] [place] [address] 06/02/2024 Provider Migration Plan Of Treatment Next Appt Details Provider Name:Carolina Franco, 10/28/2025 10:00:00 AM, [address] [facility], Suite [facility], [place], [address], [phone] Progress Notes * RAMSES WOODOB:1945 (79 yo F)Acc No.[id number]:06/02/2024 Progress Notes Patient: Jessica MAHMOOD HEIDY Provider: Ryne Echevarria :1945 A ge:78 Y S ex:Female Date:06/02/2024 Address:[address] [place], [place] [phone] Subjective: * Chief Complaints: * H OSPITAL DISCHARGE FOLLOW UP VIIST * Ocular Surgical History: Objective: Vision Examination: * Electronic signature of Prov ider Migration on 10/10/2025 at 11:31 AM EST Sign off status: Pending * Provider: Ryne jamil Migration Date: 0 06/02/2024 Generated for Edwardi ng/Faaliyag/eTransmitting on: 1 11:31 AM EST
--- OUTSIDE RECORDS SUMMARY | 2024-06-16 04:00 | XMS_ITS ---
Author Organization [facility] [place] Address [address] [address] [place] [address] Care Team Providers Care Assembler Plastic Boat Name Role Phone Migration, Provider Unavailable Unavailable REASON FOR VISIT Sick Visit Encounters Encounter Location Date Provider Diagnosis [address] [place] [address] 06/16/2024 Provider Migration Plan Of Treatment Next Appt Details Provider Name:Carolina Franco, 10/28/2025 10:00:00 AM, [address] [place] [address], [place] [address], [place], [address], [phone] Progress Notes * RAMSES WOODOB:1945 (79 yo F)Acc No.[id number]:06/16/2024 Progress Notes Patient: HEIDY SCOTT Provider: Ryne Echevarria :1945 A ge:78 Y S ex:Female Date:06/16/2024 Address:[address] [place], [place] [phone] Subjective: * Chief Complaints: * S ick Visit * Ocular Surgical History: Objective: Vision Examination: * Electronic signature of Prov ider Migration on 10/10/2025 at 11:32 AM EST Sign off status: Pending * Provider: Ryne jamil Migration Date: 0 06/16/2024 Generated for Nydia arechiga/Jose/eTransmitting on: 1 11:32 AM EST
--- OUTSIDE RECORDS SUMMARY | 2024-08-02 06:00 | XMS_ITS ---
Author Organization [facility] [place] Address [address] [address] [place] [address] Care Team Providers Care Military Personnel Specialist Name Role Phone Migration, Provider Unavailable Unavailable REASON FOR VISIT Follow-up Appt Encounters Encounter Location Date Provider Diagnosis [address] [place] [address] 08/02/2024 Provider Migration Plan Of Treatment Next Appt Details Provider Name:Carolina Franco, 10/28/2025 10:00:00 AM, [address] [place] [address], Suite [facility], [place], [address], [phone] Progress Notes * RAMSES WOODOB:1945 (79 yo F)Acc No.[id number]:08/02/2024 Progress Notes Patient: HEIDY SCOTT Provider: Ryne Echevarria :1945 A ge:78 Y S ex:Female Date:08/02/2024 Address:[address] [place], [place] [phone] Subjective: * Chief Complaints: * F ollow-up Appt * Ocular Surgical History: Objective: Vision Examination: * Electronic signature of Prov ider Migration on 10/10/2025 at 11:30 AM EST Sign off status: Pending * Provider: Ryne jamil Migration Date: Generated for Printi ng/Faxing/eTransmitting on: 11:30 AM EST
--- OUTSIDE RECORDS SUMMARY | 2024-11-25 05:00 | XMS_ITS ---
Author Organization [facility], [place] Address [address] [address] [facility] [address] [place] [address] Care Team Providers Care Taxi Driver Name Role Phone Migration, Provider Unavailable Unavailable REASON FOR VISIT Follow-up Appt Encounters Encounter Location Date Provider Diagnosis [address] [place] [address] 11/25/2024 Provider Migration Plan Of Treatment Next Appt Details Provider Name:Carolina Franco, 10/28/2025 10:00:00 AM, [address] [place] [address], Suite [facility], [place], [address], [phone] Progress Notes * RAMSES WOODOB:1945 (79 yo F)Acc No.[id number]:11/25/2024 Progress Notes Patient: LISSETH SCOTTRA Provider: Ryne jamil Migration :1945 A ge:78 Y S ex:Female Date:11/25/2024 Address:[address] [place], [place] [phone] Subjective: * Chief Complaints: * F ollow-up Appt * Ocular Surgical History: Objective: Vision Examination: * Electronic signature of Prov ider Migration on 10/10/2025 at 11:31 AM EST Sign off status: Pending * Provider: Ryne jamil Migration Date: 0 11/25/2024 Generated for Printi ng/Faxing/eTransmitting on: 1 11:31 AM EST
--- OUTSIDE RECORDS SUMMARY | 2024-12-23 05:30 | XMS_ITS ---
Author Organization [facility], [place] Address [address] [address] [place] [address] Care Team Providers Care Grain Mixer Name Role Phone Migration, Provider Unavailable Unavailable REASON FOR VISIT Follow-up Appt Encounters Encounter Location Date Provider Diagnosis [address] [place] [phone] 12/23/2024 Provider Migration Plan Of Treatment Next Appt Details Provider Name:Carolina Franco, 10/28/2025 10:00:00 AM, [address] [place] [address], Suite [facility], [place], [address], [phone] Progress Notes * RAMSES WOODOB:1945 (79 yo F)Acc No.[id number]:12/23/2024 Progress Notes Patient: LISSETH SCOTTRA Provider: Ryne jamil Migration :1945 A ge:79 Y S ex:Female Date:12/23/2024 Address:[address] [place], [place] [phone] Subjective: * Chief Complaints: * F ollow-up Appt * Ocular Surgical History: Objective: Vision Examination: * Electronic signature of Prov ider Migration on 10/10/2025 at 11:32 AM EST Sign off status: Pending * Provider: Ryne jamil Migration Date: 0 12/23/2024 Generated for Printi ng/Faxing/eTransmitting on: 1 11:32 AM EST
--- OUTSIDE RECORDS SUMMARY | 2024-12-23 05:30 | XMS_ITS ---
Author Organization [facility] [place] Address [address] [place] [address] Care Team Providers Care Ctrs Name Role Phone Jeremy Mcgee Unavailable [phone] REASON FOR VISIT Follow-up Appt Encounters Encounter Location Date Provider Diagnosis [facility], [address] [place] [phone] 12/23/2024 Jeremy Mcgee Plan Of Treatment Next Appt Details Provider Name:Carolina Franco, 10/28/2025 10:00:00 AM, [address] [facility], Suite [facility], [place], [address], [phone] Progress Notes * RAMSES WOODOB:1945 (79 yo F)Acc No.[id number]:12/23/2024 Progress Notes Patient: LISSETH SCOTTRA Provider: Virgilio YEAGER :1945 A ge:79 Y S ex:Female Date:12/23/2024 Address:[address] [place], [place] [phone] Subjective: * Chief Complaints: * F ollow-up Appt * Ocular Surgical History: Objective: Vision Examination: * Electronic signature of Dilip Mcgee PA-C on 10/10/2025 at 11:32 AM EST Sign off status: Pending * Provider: Virgilio YEAGER Date: 0 12/23/2024 Generated for Printi ng/Faxing/eTransmitting on: 1 11:32 AM EST
--- OUTSIDE RECORDS SUMMARY | 2025-05-02 05:00 | XMS_ITS ---
Author Organization [facility] [place] Address [address] [place] [address] Care Team Providers Care Vehicle Service Attendant Name Role Phone Carolina Franco Unavailable [phone] Allergies Allergen (clinical drug ingredient) Drug/Non Drug [...] Location Date Provider Diagnosis [facility] [place] [address] [facility] [address] [place] [address] 05/02/2025 Carolina Franco Plan Of Treatment Next Appt Details Provider Name:Carolina Franco, 10/28/2025 10:00:00 AM, [address] [facility] [facility], [address], [place], [address], [phone] History and Physical Notes * HPI (History [...] pain and abdominal pain. Progress Notes * JOSE ENRIQUE WOODILIANARADOB:1945 (79 yo F)Acc No.[id number]:05/02/2025 Progress Notes Patient: HEIDY SCOTT Provider: Jessica Franco :1945 A ge:79 Y S ex:Female Date:05/02/2025 Address:[address] [place] [id number] Subjective: * Chief Complaints: * I 'm [...] * Electronic signature of Sasha Franco on 10/10/2025 at 11:30 AM EST Sign off status: Pending * Provider: Jessica Franco Date: 0 05/02/2025 Generated for Nydia arechiga/Jose/Hailey on: 11:30 AM EST
--- OUTSIDE RECORDS SUMMARY | 2025-05-24 08:45 | XMS_ITS ---
Author Organization [facility] [place] Address [address] [place] [address] Care Team Providers Care Director Of Product Marketing Name Role Phone Carolina Franco Unavailable [phone] Allergies Allergen (clinical drug ingredient) Drug/Non Drug Allergy documented on EMR Reaction Allergy Type Onset Date Status ciprofloxacin Cipro hives Drug Allergy Act ivania REASON FOR VISIT pain, foot Medications Medication SIG (Take, Route, Frequency, Duration) Notes Start Date End Date Status Fluticasone Propionate 50 MCG/ACT Suspension 1 spray in each nostril Nasally Twice a day Active Celecoxib 50 MG Capsule 1 capsule Orally Once a day; Duration: 3 days As needed 05/24/2025 Active Breo Ellipta 100-25 MCG/ACT Aerosol Powder Breath Activated 1 puff Inhalation Once a day Active CeleBREX 400 MG Capsule as directed Orally As needed Active Vitamin D 25 MCG (1000 UT) Tablet 1 tablet Orally Once a day Active Levothyroxine Sodium 50 MCG Tablet 1 tablet in the morning on an empty stomach Orally Once a day Active Lisinopril-hydroCHLOROthiazi de 10-12.5 MG Tablet 1 tablet Orally Once a day Active Omeprazole 20 MG Capsule Delayed Release 1 capsule 1/2 to 1 hour before morning meal Orally Once a day Active Vital Signs Temperature 98.2 degrees Fahrenheit 05/24/20 25 Blood pressure systolic 138 mm Hg 05/24/20 25 Blood pressure diastolic 80 mm Hg 025 Heart Rate 77 /min 05/24/2025 Respiratory Rate 20 /min 05/24/2025 Height 63 in 05/24/2025 Weight 168 lbs 05/24/2025 BMI 29.76 kg/m2 05/24/2025 Oximetry 98 % 05/24/2025 Height-cm 160.02 cm 05/24/2025 Weight-kg 76.2 kg 05/24/2025 Encounters Encounter Location Date Provider Diagnosis [facility] [place] [address] [facility] [address] [place] [address] 05/24/2025 Carolina Franco Right foot pain M79.671 Assessments Encounter Date Diagnosis (ICD Code) Assessment Notes Treatment Notes Treatment Clinical Notes Section Notes 05/24/2025 Right foot pain (ICD-10 - M79.671) Plan Of Treatment Medication Medication Name Sig Start Date Stop Date Notes Celecoxib 50 MG Capsule 1 capsule Orally Once a day; Duration: 3 days 05/24/2025 Next Appt Details Provider Name:Carolina Franco, 10/28/2025 10:00:00 AM, [address] [place] [address], [place] [address], [place], [address], [phone] History and Physical Notes * HPI (History of Present Illness) Category Sub-Category Detail Notes Category Not es General Subjective: - Patient reports right foot pain and swelling for about a week. - Describes feeling a lump under the foot, with calluses and dryness noticed since a recent colonoscopy. - States no known injury or accident causing the swelling. - Consumed Celebrex found at home to manage pain, felt some relief. - Reports low physical activity in the past days, leading to weight gain. - No known allergies reported. Objective: - Doctor palpated the outer right foot, patient reports pain particularly on the outside and near a lump under the foot. Assessment: - Possible plantar fasciitis Plan: - Prescribe Celebrex 50 mg; take one pill once daily for three days. - Advise patient to ice the bottom of the foot using a frozen bottle of water or existing ice pack, minimum four times daily. - Caution on using ibuprofen or Celebrex with daily aspirin intake to avoid gastrointestinal issues. - Follow-up scheduled for July. Progress Notes * RAMSES WOODOB:1945 (79 yo F)Acc No.[id number]:05/24/2025 Progress Notes Patient: Jessica HEIDY MAHMOOD Provider: Jessica magdaleno Franco :1945 A ge:79 Y S ex:Female Date:05/24/2025 Address:[address] [place], [place] [id number] Subjective: * Chief Complaints: * P ain, foot * HPI: G eneral: Subjective: - Patient reports right foot pain and swelling for about a week. - Describes feeling a lump under the foot, with calluses and dryness noticed since a recent colonoscopy. - States no known injury or accident causing the swelling. - Consumed Celebrex found at home to manage pain, felt some relief. - Reports low physical activity in the past days, leading to weight gain. - No known allergies reported. Objective: - Doctor palpated the outer right foot, patient reports pain particularly on the outside and near a lump under the foot. Assessment: - Possible plantar fasciitis Plan: - Prescribe Celebrex 50 mg; take one pill once daily for three days. - Advise patient to ice the bottom of the foot using a frozen bottle of water or existing ice pack, minimum four times daily. - Caution on using ibuprofen or Celebrex with daily aspirin intake to avoid gastrointestinal issues. - Follow-up scheduled for July. * Medical History: GI-DR RICHARD REILLY-ENDOCRINOLOGY UROLOGY PULMONOLOGY-DR FLEMING Medical History Verified * Medications: T akingVitamin D 25 MCG [...] Activated 1 puff Inhalation Once a day * Allergies: C ipro: hivesyesAllergies Verified. Objective: * Vitals: B P: 138/80 mm Hg, HR: 77 /min, RR: 20 /min, Temp: 98.2 F, Oxygen sat %: 98 %, Ht: 63 in, Wt: 168 lbs, BMI: 29.76 Index, Wt-k.2 kg, Ht-cm: 160.02 cm, Body Surface Area: 1.84. Assessment: * Assessment: 1. R ight foot pain - M79.671 Plan: * Treatment: * Electronic signature of Sasha Franco on 10/10/2025 at 11:32 AM EST Sign off status: Pending * Provider: Jessica Franco Date: 0 05/24/2025 Generated for Nydia arechiga/Jose/Wangitting on: 1 11:32 AM EST
--- OUTSIDE RECORDS SUMMARY | 2025-08-01 05:45 | XMS_ITS ---
Author Organization [facility] [place] Address [address] [place] [address] Care Team Providers Care Reinforced Steel Placing Supervisor Name Role Phone Carolina Franco Unavailable [phone] Allergies Allergen (clinical drug ingredient) Drug/Non Drug Allergy documented on EMR Reaction Allergy Type Onset Date Status ciprofloxacin Cipro hives Drug Allergy Act ivania REASON FOR VISIT 3mo f/u, Patient indicates right ankle pain and leg swelling. Also indicates after lumbar infusion,having incontinence problems. Medications Medication SIG (Take, Route, Frequency, Duration) Notes Start Date End Date Status CeleBREX 400 MG Capsule as directed Orally As needed Active Breo Ellipta 100-25 MCG/ACT Aerosol Powder Breath Activated 1 puff Inhalation Once a day Active Fluticasone Propionate 50 MCG/ACT Suspension 1 spray in each nostril Nasally Twice a day Active Celecoxib 50 MG Capsule 1 capsule Orally Once a day; Duration: 3 days As needed 05/24/2025 Active Lisinopril-hydroCHLOROthiazi de 10-12.5 MG Tablet 1 tablet Orally Once a day; Duration: 90 days Active Levothyroxine Sodium 50 MCG Tablet 1 tablet in the morning on an empty stomach Orally Once a day Active Vitamin D 25 MCG (1000 UT) Tablet 1 tablet Orally Once a day Active Omeprazole 20 MG Capsule Delayed Release 1 capsule 1/2 to 1 hour before morning meal Orally Once a day Active Vitamin B12 Active Social History Section Notes: DENIES SMOKING DENIES ALCOHOL CAFFEEINE-2 LITERS COKE DAILY Vital Signs Blood pressure systolic 141 mm Hg 08/01/20 25 Blood pressure diastolic 83 mm Hg 025 Heart Rate 73 /min 08/01/2025 Respiratory Rate 19 /min 08/01/2025 Height 63 in 08/01/2025 Weight 170.8 lbs 08/01/2025 BMI 30.25 kg/m2 08/01/2025 Oximetry 98 % 08/01/2025 Height-cm 160.02 cm 08/01/2025 Weight-kg 77.47 kg 08/01/2025 Encounters Encounter Location Date Provider Diagnosis [facility] [place] [address] [place] [address] 08/01/2025 Carolina Franco Plan Of Treatment Next Appt Details Provider Name:Carolina Franco, 10/28/2025 10:00:00 AM, [address], [address], [place], [address], [phone] History and Physical Notes * HPI (History of Present Illness) Category Sub-Category Detail Notes Category Not es General Subjective: - Patient reports weight gain and is upset about it - Right ankle swelling and pain returned, previous history of ankle and leg swelling - Dry skin and peeling on right leg - Fecal incontinence, unaware of episodes - Use of Celebrex for ankle issues - Mentioned low vitamin B12 levels; taking B12 supplements - Experiences lack of appetite and decreased motivation for daily tasks - History of micro-hematuria and past bladder scan - Reports previous colonoscopy results as benign; recently noticed return of fecal incontinence symptoms - Sleep study has been ordered; patient mentions issues with transportation - Reports she is on Zocor every other day - Patient is social and experiences periods of low motivation to cook or participate in activities - Heavy soda consumption; was making efforts to cut back but experienced headaches due to reduction of caffeine Objective: - No specific measurable findings mentioned Assessment: - Suspected loose anal sphincter Plan: - Referral to Gastroenterology clinic at [address] [place] [address] for further evaluation - Right leg ultrasound to check for clots due to swelling and pain in the leg - Blood work 1 week before next appointment, including diabetes, liver, kidney, thyroid, blood count, cholesterol, urine, vitamin B12, and vitamin D - Discussing option to add regular physical therapy - Flu shot administered during visit - Educate patient on performing Kegel exercises to strengthen anal sphincter Progress Notes * RAMSES WOODOB:1945 (79 yo F)Acc No.[id number]:08/01/2025 Progress Notes Patient: HEIDY SCOTT Provider: Jessica Franco :1945 A ge:79 Y S ex:Female Date:08/01/2025 Address:[address] [place] [id number] Subjective: * Chief Complaints: * 3 mo f/uPatient indicates right ankle pain and leg swelling. Also indicates after lumbar infusion, having incontinence problems. * HPI: G eneral: Subjective: - Patient reports weight gain and is upset about it - Right ankle swelling and pain returned, previous history of ankle and leg swelling - Dry skin and peeling on right leg - Fecal incontinence, unaware of episodes - Use of Celebrex for ankle issues - Mentioned low vitamin B12 levels; taking B12 supplements - Experiences lack of appetite and decreased motivation for daily tasks - History of micro-hematuria and past bladder scan - Reports previous colonoscopy results as benign; recently noticed return of fecal incontinence symptoms - Sleep study has been ordered; patient mentions issues with transportation - Reports she is on Zocor every other day - Patient is social and experiences periods of low motivation to cook or participate in activities - Heavy soda consumption; was making efforts to cut back but experienced headaches due to reduction of caffeine Objective: - No specific measurable findings mentioned Assessment: - Suspected loose anal sphincter Plan: - Referral to Gastroenterology clinic at [address] [place] [address] for further evaluation - Right leg ultrasound to check for clots due to swelling and pain in the leg - Blood work 1 week before next appointment, including diabetes, liver, kidney, thyroid, blood count, cholesterol, urine, vitamin B12, and vitamin D - Discussing option to add regular physical therapy - Flu shot administered during visit - Educate patient on performing Kegel exercises to strengthen anal sphincter. * Medical History: GI-DR RICHARD REILLY-ENDOCRINOLOGY UROLOGY PULMONOLOGY-DR FLEMING Medical History Verified * Surgical History: LUMBAR 04/30 ROTATOR CUFF RIGHT 04/03 * Hospitalization/Major Diagno stic Procedure: FELL 12/07 * Family History: HEALTH CARE PROXY- JOMAR WOOD, ANGUS NINA-SONS. * Social History: Social History Verified. D ENIES SMOKING DENIES ALCOHOL CAFFEEINE-2 LITERS COKE DAILY. * Medications: T akingVitamin B12 Vitamin D 25 MCG (1000 UT) Tablet 1 tablet Orally Once a day Omeprazole 20 MG Capsule Delayed Release 1 capsule 1/2 to 1 hour before morning meal Orally Once a day Levothyroxine Sodium 50 MCG Tablet 1 tablet in the morning on an empty stomach Orally Once a day Fluticasone Propionate 50 MCG/ACT Suspension 1 spray in each nostril Nasally Twice a day CeleBREX 400 MG Capsule as directed Orally As neededBreo Ellipta 100-25 MCG/ACT Aerosol Powder Breath Activated 1 puff Inhalation Once a day Celecoxib 50 MG Capsule 1 capsule Orally Once a day As neededLisinopril-hydroCHLOROthiazide 10-12.5 MG Tablet 1 tablet Orally Once a day Taking Vitamin B12 Taking Vitamin D 25 MCG (1000 UT) Tablet 1 tablet Orally Once a day Taking Omeprazole 20 MG Capsule Delayed Release 1 capsule 1/2 to 1 hour before morning meal Orally Once a day Taking Levothyroxine Sodium 50 MCG Tablet 1 tablet in the morning on an empty stomach Orally Once a day Taking Fluticasone Propionate 50 MCG/ACT Suspension 1 spray in each nostril Nasally Twice a day Taking CeleBREX 400 MG Capsule as directed Orally As neededTaking Breo Ellipta 100-25 MCG/ACT Aerosol Powder Breath Activated 1 puff Inhalation Once a day Taking Celecoxib 50 MG Capsule 1 capsule Orally Once a day As neededTaking Lisinopril-hydroCHLOROthiazide 10-12.5 MG Tablet 1 tablet Orally Once a day * Allergies: C ipro: hivesyesAllergies Verified. Objective: * Vitals: B P: 141/83 mm Hg, HR: 73 /min, RR: 19 /min, Oxygen sat %: 98 %, Ht: 63 in, Wt: 170.8 lbs, BMI: 30.25 Index, Wt-k.47 kg, Ht-cm: 160.02 cm, Body Surface Area: 1.85. * Electronic signature of Sasha Franco on 10/10/2025 at 11:31 AM EST Sign off status: Pending * Provider: Jessica Franco Date: Generated for Nydia arechiga/Jose/Hailey on: 11:31 AM EST
--- OUTSIDE RECORDS SUMMARY | 2025-09-27 04:00 | XMS_ITS ---
Author Organization [facility], [place] Address [address] [place] [address] Care Team Providers Care Field Care Advocate Name Role Phone Carolina Franco Unavailable [phone] Allergies Allergen (clinical drug ingredient) Drug/Non Drug Allergy documented on EMR Reaction Allergy Type Onset Date Status ciprofloxacin Cipro hives Drug Allergy Act ivania REASON FOR VISIT Physical Medications Medication SIG (Take, Route, Frequency, Duration) Notes Start Date End Date Status Vitamin D 25 MCG (1000 UT) Tablet 1 tablet Orally Once a day Active Levothyroxine Sodium 50 MCG Tablet 1 tablet in the morning on an empty stomach Orally Once a day Active Albuterol Active Potassimin Active Vitamin B12 Active Zithromax Z-Michael 250 MG Tablet as directed Orally daily; Duration: 5 days 09/27/2025 10/02/2025 Active Omeprazole 20 MG Capsule Delayed Release 1 capsule 1/2 to 1 hour before morning meal Orally Once a day Not-Taking CeleBREX 400 MG Capsule as directed Orally As needed Not-Taking Lisinopril-hydroCHLOROthi azide 10-12.5 MG Tablet 1 tablet Orally Once a day; Duration: 90 days Active Simvastatin 20 MG Tablet 1 tablet in the evening Orally Once a day; Duration: 90 days 08/12/2025 Active Fluticasone Propionate 50 MCG/ACT Suspension 1 spray in each nostril Nasally Twice a day Active Breo Ellipta 100-25 MCG/ACT Aerosol Powder Breath Activated 1 puff Inhalation Once a day Active Celecoxib 50 MG Capsule 1 capsule Orally Once a day; Duration: 3 days As needed 05/24/2025 Active Social History Section Notes: Nicotine: Vapes DENIES ALCOHOL CAFFEINE-2 LITERS COKE DAILY Vital Signs Blood pressure systolic 141 mm Hg 09/27/20 25 Blood pressure diastolic 87 mm Hg 025 Heart Rate 78 /min 09/27/2025 Respiratory Rate 16 /min 09/27/2025 Height 63 in 09/27/2025 Weight 157 lbs 09/27/2025 BMI 27.81 kg/m2 09/27/2025 Oximetry 97 % 09/27/2025 Height-cm 160.02 cm 09/27/2025 Weight-kg 71.21 kg 09/27/2025 Encounters Encounter Location Date Provider Diagnosis [facility] [place] [address] [place] [address] 09/27/2025 Carolina Franco Bronchitis J40 Assessments Encounter Date Diagnosis (ICD Code) Assessment Notes Treatment Notes Treatment Clinical Notes Section Notes 09/27/2025 Bronchitis (ICD-10 - J40) Plan Of Treatment Medication Medication Name Sig Start Date Stop Date Notes Zithromax Z-Michael 250 MG Tablet as directe d Orally daily; Duration: 5 days 09/27/2025 10/02/2025 Next Appt Details Provider Name:Carolina Franco, 10/28/2025 10:00:00 AM, [address], [place] [address], [place], [phone], [phone] History and Physical Notes * HPI (History of Present Illness) Category Sub-Category Detail Notes Category Not es Depression screening PHQ-9 Little inte rest or pleasure in doing things: Not at all Feeling down, depressed, or hopeless: No t at all Trouble falling or staying asleep, or sl eeping too much: Not at all Feeling tired or having little energy: N ot at all Poor appetite or overeating: Not at all Feeling bad about yourself o r that [...] moving around a lot more than usual: Not at all Thoughts that you would be b julieta off or of hurting yourself in some way: Not at all Total Score: 0 Depression Screening CIRO-7 (2018 Edition) Feelin g nervous, anxious, or on edge: Nearly every day Not being able to stop or control worryi ng: Nearly every day Worrying too much about different things : Nearly every day Trouble relaxing: Nearly every day Being so restless that it is hard to sit still: Nearly every day Becoming easily annoyed or irritable: Ne josé manuel every day Feeling afraid as if something awful steph ht happen: Nearly every day Total CIRO-7 Score: 21 Interpretation of Total: (15 and over) S evere General Subjective: - Patient reports having been sick since November 07, with symptoms including a persistent cough, runny nose, and chest pain. - History of COPD and past episodes of bronchitis. - Reports anxiety which has been ongoing and is not currently receiving treatment. - Reports having B12 deficiency diagnosed in June. - Past medical history of osteoarthritis and using a CPAP machine. - Reported unintended weight loss due to decreased appetite. - Fell recently but did not sustain any injury. - Reports not currently working and anxiety related to financial stress and isolation. - Medications include Lisinopril, Simvastatin, Flonase, and Potassium. Objective: - Reports of falling but does not specify any observed injuries. - B12 blood level reported to be low. - Reports of chest pain, but no further specific findings documented in this visit. Assessment: - B12 deficiency - Suspected bronchitis - Anxiety disorder Plan: - Administer a B12 injection today and follow-up with monthly injections. - Prescribe a Z-pack for suspected bronchitis. - Perform chest X-ray today. - Referral to nephrology for further evaluation of kidney function. - Consider Lexapro for treatment of anxiety after discussion with the patient but currently undecided on starting medication. - Encourage use of her inhaler as needed for tightness in the chest. - Discuss potential for warm compress for Castelan's cyst. - Schedule mammogram and plan follow-up as needed. - Educate patient on the importance of taking the prescribed medications regularly. Progress Notes * RAMSES WOODOB:1945 (79 yo F)Acc No.[id number]:09/27/2025 Progress Notes Patient: Jessica HEIDY MAHMOOD Provider: Jessica Franco :1945 A ge:79 Y S ex:Female Date:09/27/2025 Address:[address] [place] [address], [id number] Subjective: * Chief Complaints: * P hysical * HPI: D epression Screening: CIRO-7 (2018 Edition) F eeling nervous, anxious, or on edge?Nearly every day, N ot being able to stop or control worrying N early every day, W orrying too much about different things N early every day, T rouble relaxing N early every day, B eing so restless that it is hard to sit still N early every day, B ecoming easily annoyed or irritable N early every day, F eeling afraid as if something awful might happen N early every day, T otal CIRO-7 Score 2 1, I nterpretation of Total ( 15 and over) Severe. D epression screening: PHQ-9 L ittle interest or pleasure in doing things N ot at all, F eeling down, depressed, or hopeless N ot at all, T rouble falling or staying asleep, or sleeping too much N ot at all, F eeling tired or having little energy N ot at all, P oor appetite or overeating N ot at all, F eeling bad about yourself or that [...] moving around a lot more than usual N ot at all, T houghts that you would be better off or of hurting yourself in some way N ot at all, T otal Score 0 . G eneral: Subjective: - Patient reports having been sick since November 07, with symptoms including a persistent cough, runny nose, and chest pain. - History of COPD and past episodes of bronchitis. - Reports anxiety which has been ongoing and is not currently receiving treatment. - Reports having B12 deficiency diagnosed in June. - Past medical history of osteoarthritis and using a CPAP machine. - Reported unintended weight loss due to decreased appetite. - Fell recently but did not sustain any injury. - Reports not currently working and anxiety related to financial stress and isolation. - Medications include Lisinopril, Simvastatin, Flonase, and Potassium. Objective: - Reports of falling but does not specify any observed injuries. - B12 blood level reported to be low. - Reports of chest pain, but no further specific findings documented in this visit. Assessment: - B12 deficiency - Suspected bronchitis - Anxiety disorder Plan: - Administer a B12 injection today and follow-up with monthly injections. - Prescribe a Z-pack for suspected bronchitis. - Perform chest X-ray today. - Referral to nephrology for further evaluation of kidney function. - Consider Lexapro for treatment of anxiety after discussion with the patient but currently undecided on starting medication. - Encourage use of her inhaler as needed for tightness in the chest. - Discuss potential for warm compress for Castelan's cyst. - Schedule mammogram and plan follow-up as needed. - Educate patient on the importance of taking the prescribed medications regularly. * Medical History: GI-DR RICHARD REILLY-ENDOCRINOLOGY UROLOGY PULMONOLOGY-DR FLEMING Medical History Verified * Surgical History: LUMBAR 04/30 ROTATOR CUFF RIGHT 04/03 Surgical History verified. * Ocular Surgical History: * Hospitalization/Major Diagno stic Procedure: FELL 12/07 * Family History: F amily History Verified.. HEALTH CARE PROXY- JOMAR NINA, ANGUS NINA-SONS. * Social History: Social History Verified. N icotine: Vapes DENIES ALCOHOL CAFFEINE-2 LITERS COKE DAILY. * Medications: T akingAlbuterol Potassimin Vitamin B12 Vitamin D 25 MCG (1000 UT) Tablet 1 tablet Orally Once a day Levothyroxine Sodium 50 MCG Tablet 1 tablet in the morning on an empty stomach Orally Once a day Fluticasone Propionate 50 MCG/ACT Suspension 1 spray in each nostril Nasally Twice a day Breo Ellipta 100-25 MCG/ACT Aerosol Powder Breath Activated 1 puff Inhalation Once a day Celecoxib 50 MG Capsule 1 capsule Orally Once a day As neededLisinopril-hydroCHLOROthiazide 10-12.5 MG Tablet 1 tablet Orally Once a day Simvastatin 20 MG Tablet 1 tablet in the evening Orally Once a day Taking Albuterol Taking Potassimin Taking Vitamin B12 Taking Vitamin D 25 MCG (1000 UT) Tablet 1 tablet Orally Once a day Taking Levothyroxine Sodium 50 MCG Tablet 1 tablet in the morning on an empty stomach Orally Once a day Taking Fluticasone Propionate 50 MCG/ACT Suspension 1 spray in each nostril Nasally Twice a day Taking Breo Ellipta 100-25 MCG/ACT Aerosol Powder Breath Activated 1 puff Inhalation Once a day Taking Celecoxib 50 MG Capsule 1 capsule Orally Once a day As neededTaking Lisinopril-hydroCHLOROthiazide 10-12.5 MG Tablet 1 tablet Orally Once a day Taking Simvastatin 20 MG Tablet 1 tablet in the evening Orally Once a day Not-TakingOmeprazole 20 MG Capsule Delayed Release 1 capsule 1/2 to 1 hour before morning meal Orally Once a day CeleBREX 400 MG Capsule as directed Orally As neededMedication List reviewed and reconciled with the patientNot-Taking Omeprazole 20 MG Capsule Delayed Release 1 capsule 1/2 to 1 hour before morning meal Orally Once a day Not-Taking CeleBREX 400 MG Capsule as directed Orally As neededMedication List reviewed and reconciled with the patient * Allergies: C ipro: hivesyesAllergies Verified. Objective: * Vitals: B P: 141/87 mm Hg, HR: 78 /min, RR: 16 /min, Oxygen sat %: 97 %, Ht: 63 in, Wt: 157 lbs, BMI: 27.81 Index, Wt-k.21 kg, Ht-cm: 160.02 cm, Body Surface Area: 1.78. Vision Examination: Assessment: * Assessment: 1. B skyler - Natalia Plan: * Treatment: * Procedures: B 12 vaccine given on left arm , patient tolerated well, patient sat in office for 15 min. lot#[id number] exp: 06/07. * Electronic signature of Sasha Franco on 10/10/2025 at 11:31 AM EST Sign off status: Pending * Provider: Jessica Franco Date: 11/28/2024 Generated for Nydia arechiga/Jose/Hailey on: 11:31 AM EST
[2025-10-10 10:21] VITALS: BP 138/82; PULSE 88; O2SAT 97; BMI 28.7
--- NOTE | 2025-10-10 10:21 | MHC.OFFVIS ---
Vital Signs 10/10/25 10:21 Height 5 ft 3 in Weight 162 lb BMI 28.7 BP 138/82 Blood Pressure Location Rt brachial Position Sitting Pulse 88 Pulse Source Pulse Oximeter Pulse Oximetry (%) 97 Oxygen Delivery Method Room Air Intake Visit Reasons: 3mnths Intake Note: Patient presents follow up DIONICIO. PSG in chart(AHI-3, JEROME-93%) Service Establishment Attendant Required: No Accompanied by: Self / Same As Patient Allergies cipro iv Adverse Reaction (Intermediate, Uncoded 10/10/25 10:28) limb swelling HPI Comments Details: 79 y/o r. handed female with h/o COPD presents for follow up of DIONICIO. Interim med hx she tested + for Covid on Sep 12 and is still recovering. 2024 PSG is c/w AHI-3, and O2 Nadirs to 93%, sleep efficiency is 42% with REM Sleep less than 10min, she is on Bipap therapy with 2 liters of O2 at night. She has a history of asthma managed with Ellipta/ Breo and her rescue inhaler albuterol. Labs reviewed with pt today, B12 is low and now on parenteral treatments. Gait and Balance instability, due to R. foot drop, eversion and twisting of foot. Podiatry evaluation reviewed with pt for callous removal. Pt reports she uses CPAP nightly, and is not satisfied with the pressures as she has COPD. She wakes up refreshed but still gets tired easily especially around 4-5 pm, and falls asleep in her couch. Pt's sleep hours vary, she sleeps well with CPAP, wakes up 2-3x for the bathroom. She has mild headaches at baseline with vertigo and balance issues, declines medication today. Denies photo/phonophobia/ N/V. She started Levothyroxine this December, however still feels hands are cold and poor circulation, her brain fog has improved. She says her memory is stable.She lives with her son, and she is independent with all her ADLs. She feels her bowel incontinence is worse with anxiety and mood, and ruminates about house repairs and insulation projects. [facility] for socialization and activities. [facility] Medical History Intractable plantar keratosis Other specified epidermal thickening PVD (peripheral vascular disease) Tinea unguium Surgical History H/O shoulder surgery Previous back surgery Social History Alcohol intake: never Patient Tobacco Use Status: Former Tobacco user Physical Exam Vital Signs: Last Vital Signs Pulse 88 10/10/25 10:21 BP 138/82 10/10/25 10:21 Pulse Ox 97 10/10/25 10:21 Oxygen Delivery Method Room Air 10/10/25 10:21 BMI result Body Mass Index 28.7 Const General: cooperative, comfortable and no acute distress Nutritional Appearance: average body habitus Orientation/consciousness: patient oriented x3 HEENT Face and sinus: Yes normal facial exam and Yes face symmetric Eyes Pupils: Equal, round and reactive pupils present Neck Neck: Yes full ROM Resp Effort & Inspection: normal respiratory effort and able to speak in complete sentences Neuro General: patient oriented x3 Cranial nerves: Yes CN's II-XII intact bilaterally, Yes Facial sensation intact/muscles of mastication intact, Yes Equal, round and reactive pupils present, Yes Normal accommodation reflex present, Yes Ability to bilaterally rotate head present and Yes Ability to bilaterally elevate shoulders present Gait exam (Neuro): Normal gait present Motor exam (neuro): 5/5 motor strength present throughout Deep tendon reflexes (DTR's): Right triceps reflex intensity grade: 2+, Left triceps reflex intensity grade: 2+, Rt Biceps (C5, C6): 2+, Left biceps reflex intensity grade: 2+, Right brachioradialis reflex intensity grade: 2+, Left brachioradialis reflex intensity grade: 2+, Right patellar reflex intensity grade: 2+ and Left patellar reflex intensity grade: 2+ Coordination: [id number] test normal Psych Appearance: grossly normal Affect: normal affect Insight: Good insight present (Psych) Results Reviewed Results Reviewed: labs reviewed with pt podiatry note reviewed with pt. PSG reviwed with pt. Assessment & Plan Assessment & Plan (1) DIONICIO on CPAP: Comment: on bipap with 2 liters of o2 at night and still anemic Code(s): G47.33 - Obstructive sleep apnea (adult) (pediatric); Z99.89 - Dependence on other enabling machines and devices Category: Medical (2) 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: Code(s): H81.90 - Unspecified disorder of vestibular function, unspecified ear Category: Medical Qualifiers: Laterality: bilateral Qualified Code(s): H81.93 - Unspecified disorder of vestibular function, bilateral (3) Anemia, B12 deficiency: Code(s): D51.9 - Vitamin B12 deficiency anemia, unspecified Category: Medical Qualifiers: Vitamin B12 deficiency anemia type: intrinsic factor deficiency Qualified Code(s): D51.0 - Vitamin B12 deficiency anemia due to intrinsic factor deficiency (4) Fatigue: Code(s): R53.83 - Other fatigue Category: Medical Qualifiers: Fatigue type: unspecified Qualified Code(s): R53.83 - Other fatigue (5) Balance disturbance due to old head injury: Code(s): R26.89 - Other abnormalities of gait and mobility; S09.90XS - Unspecified injury of head, sequela Category: Medical (6) Hypersomnia: Code(s): G47.10 - Hypersomnia, unspecified Category: Medical (7) Bilateral foot pain: Code(s): M79.671 - Pain in right foot; M79.672 - Pain in left foot Category: Medical Plan Anemia, continue treatment with parenteral B12 injections monthly. PSG to evaluate dionicio, Continue use of Bipap, with 2 liters of o2 at night daily and for >4 hours a night. will assess with psg as pt has not had a psg in over 10years. RLS symptoms continue to take magnesium, and take b12 monthly. PT Gait and Balance Difficulty, keep the feet well moisturized and clean free of debris, continue to attend PT as needed or at home as tolerable. F/u in 3 months as needed. Coding Level of Care Code Est Pt Level 4 (11822) Diagnoses DIONICIO on CPAP G47.33; Z99.89 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 Bilateral foot pain M79.671; M79.672
--- OUTSIDE RECORDS SUMMARY | 2025-10-10 11:31 | XMS_ITS | Patient Health Record ---
Author Organization [facility] Address [address] [place] [address] Care Team Providers Care [place] Tower Loader Name Role Phone MIKE STORM MD Primary Care Provider Unavailab RENETTA Garcia Unavailable [phone] Allergies Allergen (clinical drug ingredient) Drug/Non Drug [...] EVERY THREE MONTHS NAME ONLY Conversion from [facility] Review and pick correct strength-formulati on from Xquva options. 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 Problem 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 Problem History of radiation exposure (801312597) History of radioactive iodine thyroid ablation (Z92.3) Active confirmed Plan Of Treatment Future Test Test Name Order Date FREE T4 04/07/2017 TSH 04/07/2017 TSH WITH REFLEX TO FT4 11/04/2022 Insurance Providers Payer Name Payer Address Payer Phone Subscriber Number Group Number Insured Name Patient Relationship to Insured Coverage Start Date Coverage End Date MEDICARE [employer] [address] [place] [address] [id number] HEIDY WOOD Self - patient is the insured 3 [facility] MEDICARE COMPLIMENT PLAN [address] [place], [place] [id number] HEIDY WOOD Self - patient is the insured Medical (General) History Medical History History ICD Code asthma hypercholesterolemia Gastroesophageal reflux disease (GERD) hypertension 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 US 11/28. Bilateral nodules; Rt sup 5 mm, Rt inf. [id number] mm.Lt sup 8 mm, Lt inf. [id number] mm-latter toxic nodule Suppressed TSH w/ nl FT4/nl FT3 in 07/27--24 hr RAIU 26.8 and Tc scan pos for Lt inf. hyperfunctioning nodule w/ suppression of remainder gland in 11/28-[facility]. BECKER ablation w/ 29 mCI on 12/15/15 L lung infiltrate 2015 scoliosis sleep apnea - on CPAP Surgical History Surgery Date(Month/Year) right rotator cuff 03/2020 interbody fusion [facility] 04/12/19 open lung biopsy 2014 Pilonidal Cyst 1993 hysterectomy 2003 Caesarian section 1968 Caesarian section 1967 Hospitalization History Reason Date(Month/Year) 4 days 04/12/19
--- OUTSIDE RECORDS SUMMARY | 2025-10-10 11:31 | XMS_ITS | Patient Health Record ---
Author Organization [facility] [place] Address [address] [place] [address] Care Team Providers Care Maintenance Service Technician Name Role Phone Jeremy Mcgee Unavailable [phone] Migration, Provider Unavailable Unavailable Carolina Franco Unavailable [phone] Allergies Allergen (clinical drug ingredient) Drug/Non Drug [...] each nostril Nasally Twice a day Active Omeprazole 20 MG Capsule Delayed Release 1 capsule 1/2 to 1 hour before morning meal Orally Once a day Not-Takin g Albuterol Active CeleBREX 400 MG Capsule as directed Orally As needed Not-Taking Potassimin Active Vitamin B12 Active Breo Ellipta 100-25 MCG/ACT Aerosol Powder Breath Activated 1 puff Inhalation Once a day Active Celecoxib 50 MG Capsule 1 capsule Orally Once a day; Duration: 3 days As needed 05/24/2025 Active Lisinopril-hydroCHLOROthia zide 10-12.5 MG Tablet 1 tablet Orally Once a day; Duration: 90 days Active Simvastatin 20 MG Tablet 1 tablet in the evening Orally Once a day; Duration: 90 days 08/12/2025 Active Social History Section Notes: Nicotine: Vapes DENIES ALCOHOL CAFFEINE-2 LITERS COKE DAILY DENIES SMOKING DENIES ALCOHOL CAFFEEINE-2 LITERS COKE DAILY DENIES SMOKING DENIES ALCOHOL CAFFEEINE-2 LITERS COKE DAILY Problems Problem Type SNOMED Code ICD Code Onset Dates Problem Status W/U Status Risk Notes Problem Hyperlipidemia (92925029) Hyperlipidemia, unspecified (E78.5) Active confirmed Vital Signs Heart Rate 78 /min 09/27/2025 Temperature 98.2 degrees Fahrenheit 05/24/2025 Respiratory Rate 16 /min 09/27/2025 Height-cm 160.02 cm 09/27/2025 Oximetry 97 % 09/27/2025 Blood pressure diastolic 87 mm Hg 09/27/2025 Weight-kg 71.21 kg 09/27/2025 Height 63 in 09/27/2025 Blood pressure systolic 141 mm Hg 09/27/2025 Weight 157 lbs 09/27/2025 BMI 27.81 kg/m2 09/27/2025 Encounters Encounter Location Date Provider Diagnosis [facility], [address] [address] 11/25/2024 Provider Migration [facility], [address] [address] 12/23/2024 Provider Migration [facility], [address] [address] 12/23/2024 Jeremy Mcgee [facility], [place] [address] [address] 05/02/2025 Carolina Franco [facility], [address] [address] 05/24/2025 Carolina Franco Right foot pain M79.671 [facility], [address] [address] 08/01/2025 Carolinaher Franco [facility], [address] [address] 09/27/2025 Carolinaher Franco Bronchitis J40 [facility], [address] [address] 05/25/2025 Carolina Franco [facility], [address] [address] 08/12/2025 Carolina Franco Hyperlipidemia, unspecified E78.5 Assessments Encounter Date Diagnosis (ICD Code) Assessment Notes Treatment Notes Treatment Clinical Notes Section Notes 05/24/2025 Right foot pain (ICD-10 - M79.671) 08/12/2025 Hyperlipidemia, unspecified (ICD-10 - E78.5) 09/27/2025 Bronchitis (ICD-10 - J40) Plan Of Treatment Next Appt Details Provider Name:Carolina Franco, 10/28/2025 10:00:00 AM, [address] [facility], [address], [place], [address], [phone] Insurance Providers Payer Name Payer Address Payer Phone Subscriber Number Group Number Insured Name Patient Relationship to Insured Coverage Start Date Coverage End Date A [employer] [address] [place] [address] [id number] HEIDY WOOD Self - patient is the insured [facility] [address] [place] [address] [id number] HEIDY WOOD Self - patient is the insured Medical (General) History Medical History History ICD Code GI-DR RICHARD REILLY-ENDOCRINOLOGY UROLOGY PULMONOLOGY-DR FLEMING Surgical History Surgery Date(Month/Year) LUMBAR 04/30 ROTATOR CUFF RIGHT 04/03 Hospitalization History Reason Date(Month/Year) FELL 12/07
--- OUTSIDE RECORDS SUMMARY | 2025-10-10 11:31 | XMS_ITS | Clinical Summary ---
Author Organization [facility] Prior to 03/12/25 Address [address] [place] [address] Care Team Providers Care Studio Designer Name Role Phone Carlos Velasquez MD Primary Care Provider [phone] Allergies Active Allergy Reactions Criticality Noted Date [...] age to complete this topic Care Teams Studio Designer Relationship Specialty Start Date End Date Carlos Velasquez MD [address] [place] [address] PCP - General Internal Medicine 12/25/21
--- OUTSIDE RECORDS SUMMARY | 2025-10-10 11:32 | XMS_ITS | Clinical Summary ---
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 05/04/20 Active omeprazole OTC (PriLOSEC OTC) 20 mg EC tablet Take 1 tablet (20 mg total) by mouth 1 (one) time each day. Active oxyCODONE (ROXICODONE) 5 mg immediate release tablet 1 tablet (5 mg total) every 4 (four) hours if needed for moderate pain or severe pain. Max Daily Amount: 30 mg 03/12/20 Active sulfamethoxazole- trimethoprim (BACTRIM DS,SEPTRA DS) 800-160 mg per tablet Take by mouth 2 (two) times a day. 05/10/20 Active tiZANidine (ZANAFLEX) 2 mg tablet Take 1 tablet (2 mg total) by mouth. Active tiZANidine (ZANAFLEX) 4 mg capsule Take 2 capsules (8 mg total) by mouth. 08/17/20 Active traMADoL (ULTRAM) 50 mg tablet Take 1 tablet (50 mg total) by mouth every 8 (eight) hours if needed. Max Daily Amount: 150 mg 05/28/20 Active cholecalciferol (VITAMIN D-3) 25 mcg (1,000 [...] Encounters Date Type Department Care Team Description 09/27/2025 11:08 AM EST - 09/27/2025 11:59 PM EST Hospital Encounter [facility] Xray [address] [place] [phone] Chest pain on breathing Discharge Disposition: Home or Self Care 09/12/2025 9:35 AM EST Lab Draw Station - [address] [facility] [address] [place] [phone] Encounter for general adult medical examination with abnormal findings (Primary Dx); Acquired hypothyroidism; Genitourinary symptoms; Diabetes mellitus (CMS/HCC V24, CMS/HCC V28); Hyperlipidemia; Vitamin B12 deficiency anemia; Avitaminosis D 08/09/2025 8:50 AM EDT Office Visit Gastroenterology [facility] [address] [facility] [address] [place] [phone] Patti Chowdhury PA History of colon polyps (Primary Dx); Gastroesophageal reflux disease, unspecified whether esophagitis present; Incontinence of feces, unspecified fecal incontinence type 08/05/2025 10:55 AM EDT - 08/05/2025 11:59 PM EDT Hospital Encounter [facility] Ultrasound [address] [place] [phone] Pain in right lower leg Discharge Disposition: Home or Self Care 08/03/[address] [facility] [address] [facility] [address] [place] [phone] Patti Chowdhury PA from Last 3 Months Immunizations Immunization Administration Dates Next Due COVID-19 (Moderna) 6mo to less than 12yr 022 Hepatitis B (Ebbzaxf-Y-Ktcmq , Recombivax HB-Adult) 19yo and older 02/12/1992,09/17/1991,08/17/1991 [...] Date Site/Laterality Comments OTHER SURGICAL HISTORY PROCEDURE: TX EXCISION PILONIDAL CYST/SINUS COMPLICATED SECTION PROCEDURE: HISTORICAL DELIVERY; COMMENT: x2 HYSTERECTOMY PROCEDURE: HISTORICAL HYSTERECTOMY LUMBAR LAMINECTOMY PROCEDURE: HISTORICAL LUMB LAMINECTOMY Medical History Medical History Date Comments Carpal tunnel syndrome 04/16/2018 DX:Carpal tunnel syndrome GERD (gastroesophageal reflux disease) 8 DX:GERD (gastroesophageal reflux disease) 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 ([facility]/HCC V24, CMS/HCC V28) 04/16/2018 DX:Hemiparesis affecting rig ht side as late effect of stroke ([facility]); COMMENT: Chronic altered sensation RLE since 2011 History of pneumonia 04/16/2018 DX:History of pneumonia; COMMENT: Legionella 08/2014, hospitalized for dehydration Hyperlipidemia 04/16/2018 DX:Hyperlipidemi a Hypertension 04/16/2018 DX:Hypertension Lumbosacral spondylosis with radiculopathy 04/16/2018 DX:Lumbosacral spondylosis w ith radiculopathy Trochanteric bursitis 04/16/2018 DX:Trochan teric bursitis Type 2 diabetes, controlled, with neuropathy ([facility] V24, [facility] V28) 04/16/2018 DX:Type 2 diabet es, controlled, with neuropathy ([facility]) DIONICIO (obstructive sleep apnea) 05/28/2018 DX :DIONICIO (obstructive sleep apnea) History of hyperthyroidism 05/28/2018 DX:Hi story of hyperthyroidism; COMMENT: S/p BCEKER Thyroid nodule 05/28/2018 DX:Thyroid nodul e Fecal incontinence DX:Fecal inco ntinence History of lumbar surgery DX:His tory of lumbar surgery Hypothyroid COPD (chronic obstructive pu lmonary disease) ([facility] V24, [facility] V28) TIA (transient ischemic attack) Family History [...] Care Team (Late st Contact Info) Description 10/21/2025 10:15 AM EST [facility] [address] [phone] 12/05/2025 9:45 AM EST Office Visit Pulmonology - [place] [facility] [address] [place] [phone] Tereza Slaughter MD [address] [place] [phone] 02/28/2026 10:10 AM EDT Office Visit Gastroenterology - [address] [facility] [address] [facility] [address] [place] [phone] Patti Chowdhury PA [address] [facility] [address] [place] [address] Health Maintenance Due Date Last Done Comments [...] 2025 , 07/01/2023, 07/16/2022, Additional history exists Pneumococcal Vaccine: 50+ Years (3 of 3 - PCV20 or PCV21) 07/03/2025 07/03/2020, 07/03/2010 Diabetes: Blood Sugar Control Test (HGBA1C) 03/13/2026 09/12/2025, 12/23/2024 Falls Risk Assessment 05/20/2026 05/20/2025 Diabetes: Annual GFR (Glomerular Filtration Rate) 09/12/2026 09/12/2025, 05/02/2025, 01/04/2025, Additional history exists Hypertension/CHF/CAD Annual BMP Blood Test 09/12/2026 09/12/2025, 05/02/2025, 01/04/2025, Additional history exists Colorectal Cancer Screening: Colonoscopy 05/20/2030 05/20/2025 Cholesterol Screening (Lipid Panel) 09/12/2030 09/12/2025, 12/23/2024 DTaP,Tdap,and Td Vaccines (4 - Td or [...] this topic Medical Devices Implanted 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 Shelf Expiration Date Model / Serial / Lot Implants Implants Right: Shoulder Implants Implants Bilateral: Spine Lumbar Procedures Procedure Name Priority Date/Time Associated Diagnosis Comments XR CHEST 2 VIEWS Routine 09/27/2025 11:1 9 AM EST Chest pain on breathing URINALYSIS WITH REFLEX MICROSCOPIC AND CULTURE Routine 09/12/2025 9:53 AM EST Encounter for general adult medical examination with abnormal findings Acquired hypothyroidism Genitourinary symptoms Diabetes mellitus ([facility]/HCC V24, [facility] V28) Hyperlipidemia Vitamin B12 deficiency anemia Avitaminosis [...] 1:03 PM EDT History of colon polyps JONATHAN SCREENING DIGITAL Routine 11/24/2022 4:36 PM EST Encounter for screening mammogram for malignant neoplasm of breast from Last 3 Months or Most Recently Relevant to Health Maintenance Results * XR Chest 2 Views (09/27/2025 11:19 AM EST) Anatomical Region Laterality Modality Body Radiographic Luanne ging 09/27/2025 11:2 1 AM EST Impressions 09/27/2025 11:25 AM EST No acute pulmonary disease. Linear scarring in the mid to lower lungs bilaterally is unchanged since 02/17/2019. The patient is again seen to have undergone previous right upper lobe surgery. The lungs are otherwise clear. The patient seen to have undergone bilateral fixation surgery at L1-3, as well as right rotator cuff surgery, since the prior examination. Code 11540 -------- FINAL REPORT -------- Dictated By: Yusuf Lo Dictated Date: 09/27/2025 11:21 ET Assigned Physician: Yusuf Lo Reviewed and Electronically Signed By: Yusuf Lo Signed Date: 09/27/2025 11:25 ET Workstation ID: [id number] Transcribed By: Self Edit Transcribed Date: 09/27/2025 11:24 ET Narrative 09/27/2025 11:25 AM EST HISTORY: The patient is a 79-year-old female former smoker, presenting with pain upon breathing. FINDINGS: PA and lateral radiographs of the chest demonstrate levoscoliosis of the thoracolumbar spine as also seen on the prior study performed 02/17/2019. New since the prior study is spinal fixation hardware at the L1-3 levels. Also new since the prior examination are 3 surgical anchors in the right humeral head. The cardiac silhouette is within normal limits. The aortic knob is calcified. Mild linear scarring is again seen in the mid to lower lungs bilaterally. Surgical sutures are again present in the right upper lobe. The lungs are otherwise clear and the costophrenic angles are sharp. Procedure Note Yusuf Lo MD - 09/27/2025 HISTORY: The patient is a 79-year-old female former smoker, presentingwith pain upon breathing. FINDINGS: PA and lateral radiographs of the chest demonstratelevoscoliosis of the thoracolumbar spine as also seen on the prior studyperformed 02/17/2019. New since the prior study is spinal fixation hardwareat the L1-3 levels. Also new since the prior examination are 3 surgicalanchors in the right humeral head. The cardiac silhouette is within normallimits. The aortic knob is calcified. Mild linear scarring is again seenin the mid to lower lungs bilaterally. Surgical sutures are again presentin the right upper lobe. The lungs are otherwise clear and thecostophrenic angles are sharp. IMPRESSION: No acute pulmonary disease. Linear scarring in the mid to lower lungsbilaterally is unchanged since 02/17/2019. The patient is again seen to haveundergone previous right upper lobe surgery. The lungs are otherwiseclear. The patient seen to have undergone bilateral fixation surgery atL1-3, as well as right rotator cuff surgery, since the priorexamination. Code 74658 -------- FINAL REPORT -------- Dictated By: Yusuf Lo Dictated Date: 09/27/2025 11:21 ET Assigned Physician: Yusuf Lo Reviewed and Electronically Signed By: Yusuf Lo Signed Date: 09/27/2025 11:25 ET Workstation ID: [id number] Transcribed By: Self Edit Transcribed Date: 09/27/2025 11:24 ET Carolina YEAGER IMG XR PROCEDURES Final Res ult * (ABNORMAL) Urinalysis with reflex microscopic and culture (09/12/2025 9:53 AM EST) Specific [place] Urine 1.022 1.003 - 1.030 LAB URINALYSIS - AUTOMATED METHOD 09/12/2025 11:07 AM [facility] pH, Urine 5.5 5.0 - 8.0 pH LAB URINALYSIS - AUTOMATED METHOD 09/12/2025 11:07 AM [facility] Leukocytes, Urine Small(A) Negative LAB URINALYSIS - AUTOMATED METHOD 09/12/2025 11:07 AM [facility] Nitrite, Urine Negative Negative LAB URINALYSIS - AUTOMATED METHOD 09/12/2025 11:07 AM [facility] Protein, Urine Trace <=Trace mg/dL LAB URINALYSIS - AUTOMATED METHOD 09/12/2025 11:07 AM [facility] Glucose, Urine Negative Negative mg/dL LAB URINALYSIS - AUTOMATED METHOD 09/12/2025 11:07 AM [facility] Ketones, Urine Trace(A) Negative mg/dL LAB URINALYSIS - AUTOMATED METHOD 09/12/2025 11:07 AM [facility] Urobilinogen , Urine 0.2 0.2 - 1.0 mg/dL LAB URINALYSIS - AUTOMATED METHOD 09/12/2025 11:07 AM [facility] Bilirubin, Urine Negative Negative LAB URINALYSIS - AUTOMATED METHOD 09/12/2025 11:07 AM [facility] Blood, Urine Moderate(A) Negative LAB URINALYSIS - AUTOMATED METHOD 09/12/2025 11:07 AM [facility] RBC, Urine 15(H) 0 - 4 /HPF 09/12/2025 11:07 AM [facility] WBC, Urine 3 0 - 4 /HPF 09/12/2025 11:07 AM [facility] Squamous Epithelial, Urine >100(H) 0 - 60 /LPF 09/12/2025 11:07 AM [facility] Bacteria, Urine Few(A) Negative /HPF 09/12/2025 11:07 AM [facility] Hyaline Casts, Urine 15(H) 0 - 3 /LPF 09/12/2025 11:07 AM [facility] Mucus, Urine Small None /HPF 09/12/2025 11:07 AM [facility] Urine Urine specimen obtained by clean catch procedure / Unknown Non-blood Collection / Unknown 09/12/2025 9:53 AM EST 09/12/2025 10:18 AM EST Carolina YEAGER LAB URINE ORDERABLES Final Result [facility] [address] [place] [address], [place] [phone] * Culture urine (09/12/2025 9:53 AM EST) Culture, Urine No growth 09/13/2025 9:57 AM EST [facility] Urine Urine specimen obtained by clean catch procedure / Unknown Non-blood Collection / Unknown 09/12/2025 9:53 AM EST 09/12/2025 11:07 AM EST us Carolina YEAGER LAB MICROBIOLOGY - GENERAL ORDERABLES Final Result [facility] [address] [place] [address], [place] [phone] * Lipid panel with reflex to direct LDL (09/12/2025 9:46 AM EST) Pathologist [facility] Cholesterol 169 0 - 200 mg/dL 09/12/2025 11:37 AM EST [facility] Triglycerides 85 0 - 150 mg/dL 09/12/2025 11:37 AM [facility] HDL 64 >=40 mg/dL 09/12/2025 11:37 AM [facility] LDL Calculated 88 0 - 100 mg/dL 09/12/2025 11:37 AM [facility] Comment:Estimated LDL Calcul ated using equation: Total cholesterol - HDL cholesterol - (Triglycerides/5) VLDL Cholesterol Mars 17 mg/dL 09/12/2025 11:37 AM [facility] Non HDL Chol. (LDL+VLDL) 105 <145 mg/dL 09/12/2025 11:37 AM [facility] Chol/HDL Ratio 2.6 0.0 - 4.4 09/12/2025 11:37 AM [facility] Blood Venous blood specimen / Unknown Venipuncture / Unknown 09/12/2025 9:46 AM EST 09/12/2025 10:12 AM EST Carolina YEAGER LAB BLOOD ORDERABLES Final Result [facility] [address] [place] [address], [place] [phone] * (ABNORMAL) Complete blood count (09/12/2025 9:46 AM EST) Pathologist [facility] WBC 4.6(L) 4.8 - 10.8 K/mcL LAB HEMETOLOGY METHOD 09/12/2025 10:42 AM EST [facility] RBC 4.90(H) 3.80 - 4.80 M/mcL LAB HEMETOLOGY METHOD 09/12/2025 10:42 AM [facility] Hemoglobin 13.0 11.5 - 16.0 g/dL LAB HEMETOLOGY METHOD 09/12/2025 10:42 AM [facility] Hematocrit 40.2 35.0 - 47.0 % LAB HEMETOLOGY METHOD 09/12/2025 10:42 AM [facility] MCV 82.2 79.0 - 98.0 FL LAB HEMETOLOGY METHOD 09/12/2025 10:42 AM [facility] MCH 26.6(L) 27.0 - 32.0 pcg LAB HEMETOLOGY METHOD 09/12/2025 10:42 AM [facility] MCHC 32.3 32.0 - 37.0 g/dL LAB HEMETOLOGY METHOD 09/12/2025 10:42 AM [facility] RDW 15.5(H) 11.0 - 15.0 % LAB HEMETOLOGY METHOD 09/12/2025 10:42 AM [facility] Platelets 180 130 - 400 K/mcL LAB HEMETOLOGY METHOD 09/12/2025 10:42 AM [facility] MPV 11.7(H) 7.0 - 11.0 FL LAB HEMETOLOGY METHOD 09/12/2025 10:42 AM [facility] NRBC 0.0 <1.0 % LAB HEMETOLOGY METHOD 09/12/2025 10:42 AM [facility] NRBC Absolute 0.00 <0.10 K/mcL LAB HEMETOLOGY METHOD 09/12/2025 10:42 AM [facility] Blood Venous blood specimen / Unknown Venipuncture / Unknown 09/12/2025 9:46 AM EST 09/12/2025 10:18 AM EST Carolina YEAGER LAB BLOOD ORDERABLES Final Result Performing Organization Address [facility] de Phone Number [facility] [address] [place] [address], * Thyroid stimulating hormone (09/12/2025 9:46 AM EST) TSH 1.54 0.40 - 4.00 mcIU/mL 09/12/2025 11:30 AM EST [facility] Blood Venous blood specimen / Unknown Venipuncture / Unknown 09/12/2025 9:46 AM EST 09/12/2025 10:12 AM EST us Carolina YEAGER LAB BLOOD ORDERABLES Final Result Performing Organization Address [facility] Co de Phone Number [facility] [address] [place] [address], * Thyroxine free (09/12/2025 9:46 AM EST) Pathologist [facility] Free T4 1.37 0.70 - 1.80 ng/dL 09/12/2025 11:30 AM EST [facility] Blood Venous blood specimen / Unknown Venipuncture / Unknown 09/12/2025 9:46 AM EST 09/12/2025 10:12 AM EST us Carolina YEAGER LAB BLOOD ORDERABLES Final Result Performing Organization Address [facility]/ZIP Co de Phone Number [facility] [address] [place] [address], [place] [phone] * Hemoglobin A1c (09/12/2025 9:46 AM EST) Hemoglobin A1C 6.3 <6.5 % LAB CHEMISTRY METHOD 09/12/2025 2:06 PM EST [facility] Mean Bld Glu Estim. 134 mg/dL LAB CHEMISTRY METHOD 09/12/2025 2:06 PM EST [facility] Blood Venous blood specimen / Unknown Venipuncture / Unknown 09/12/2025 9:46 AM EST 09/12/2025 10:18 AM EST Carolina YEAGER LAB BLOOD ORDERABLES Final Result Performing Organization Address [facility]/ZIP Co de Phone Number [facility] [address] [place] [address], [place] [phone] * (ABNORMAL) Vitamin B12 (09/12/2025 9:46 AM EST) Pathologist [facility] Vitamin B-12 >2,000(H) 211 - 911 pcg/mL 09/12/2025 11:37 AM EST [facility] Blood Venous blood specimen / Unknown Venipuncture / Unknown 09/12/2025 9:46 AM EST 09/12/2025 10:12 AM EST Carolina YEAGER LAB BLOOD ORDERABLES Final Result Performing Organization Address [facility]/ZIP Co de Phone Number [facility] [address] [place] [address], [place] [phone] * (ABNORMAL) Comprehensive metabolic panel (09/12/2025 9:46 AM EST) Pathologist [facility] Sodium 141 133 - 145 mmol/L 09/12/2025 11:37 AM EST [facility] Potassium 3.7 3.5 - 5.5 mmol/L 09/12/2025 11:37 AM [facility] Chloride 100 96 - 110 mmol/L 09/12/2025 11:37 AM EST [facility] CO2 29 21 - 32 mmol/L 09/12/2025 11:37 AM EST [facility] Anion Gap 12(H) 3 - 11 09/12/2025 11:37 AM [facility] Glucose 137(H) 70 - 100 mg/dL 09/12/2025 11:37 AM [facility] BUN 11 5 - 25 mg/dL 09/12/2025 11:37 AM [facility] Creatinine 1.24(H) 0.50 - 1.10 mg/dL 09/12/2025 11:37 AM [facility] eGFR 45(L) >=60 mL/min/1. 73m2 09/12/2025 11:37 AM [facility] Comment:Calculation based on the Chronic Kidney Disease Epidemiology Collaboration (CKD-EPI) equation refit without adjustment for race. BUN/Creatinine Ratio 8.9 09/12/2025 11:37 AM [facility] Calcium 8.6 8.5 - 10.5 mg/dL 09/12/2025 11:37 AM [facility] AST (SGOT) 16 10 - 42 unit/L 09/12/2025 11:37 AM [facility] ALT (SGPT) 25 10 - 60 unit/L 09/12/2025 11:37 AM [facility] Alkaline Phosphatase 88 42 - 121 unit/L 09/12/2025 11:37 AM [facility] Total Protein 6.7 6.0 - 8.0 g/dL 09/12/2025 11:37 AM [facility] Albumin 4.2 3.2 - 5.0 g/dL 09/12/2025 11:37 AM [facility] Total Bilirubin 0.3 0.0 - 1.4 mg/dL 09/12/2025 11:37 AM [facility] Blood Venous blood specimen / Unknown Venipuncture / Unknown 09/12/2025 9:46 AM EST 09/12/2025 10:12 AM EST Carolina YEAGER LAB BLOOD ORDERABLES Final Result [facility] [address] [place] [address], [place] [phone] * Torres urine culture tube (09/12/2025 9:37 AM EST) Extra Tube Hold for add-ons. 09/12/2025 12:02 PM EST [facility] Comment:Auto resulted. Urine Urine specimen obtained by clean catch procedure / Unknown 09/12/2025 9:37 AM EST 09/12/2025 10:22 AM EST Carolina YEAGER LAB URINE ORDERABLES Final Result Performing Organization Address [facility] de Phone Number [facility] [address] [place] [address], [place] [phone] * Vascular US duplex lower extremity venous [...] Signed Date: 08/05/2025 12:16 ET Workstation ID: [id number] Transcribed By: Self Edit Transcribed Date: 08/05/2025 [...] Signed Date: 08/05/2025 12:16 ET Workstation ID: [id number] Transcribed By: Self Edit Transcribed Date: 08/05/2025 12:16 ET Carolina YEAGER CV VASCULAR PROCEDURES Annabel denney Result * COLONOSCOPY Anesthesia - MAC; [facility] ENDOSCOPY (05/20/2025 1:03 PM EDT) Anatomical Region [...] age. Narrative 05/20/2025 1:09 PM EDT [facility] GI Patient Name: Heidy Kaminski Procedure Date: [...] verified by the physician, the nurse, the engineering model maker and the voip network technician in the pre-procedure area in the [...] retroflexion views. Procedure Code(s): --- Professional --- 35864, Colonoscopy, flexible; with removal of tumor(s), polyp(s), or other lesion(s) by snare technique Diagnosis Code(s): --- Professional --- D12.0, Benign neoplasm of cecum CPT copyright 2020 [employer]. All rights reserved. The codes documented in this report are preliminary and upon public accountant review may be revised to meet current compliance requirements. Abram Canas MD 05/20/2025 1:09:18 PM This report has been signed electronically.Abram Canas MD Number of Addenda: 0 Note Initiated On: 05/20/2025 12:40 PM Scope Withdrawal Time: 0 hours 12 minutes 53 seconds Scope In: 12:49:48 PM Scope Out: 1:06:44 PM Endoscopy Department at [facility] - [address] [place] [phone] Procedure Note Abram Canas MD - 05/20/2025 [facility] GI Patient Name: Heidy Kaminski Procedure Date: 05/20/2025 12:40 PM Date of : 1945 Age: 79 Gender: Female Note Status: Finalized Attending MD: Abram Canas MD, Procedure Date No Time: 05/20/2025 Procedure: Colonoscopy Indications: High risk colon cancer surveillance: Personalhistory of colonic polyps Providers: Abram Canas MD Referring MD: Abram aCnas MD Medicines: Monitored Anesthesia Care Complications: No [...] the physician, the nurse, theanesthetist and the voip network technician in the pre-procedure area in the [...] retroflexion views. Procedure Code(s): --- Professional --- 13100, Colonoscopy, flexible; with removal of tumor(s), polyp(s), or other lesion(s) by snare technique Diagnosis Code(s): --- Professional --- D12.0, Benign neoplasm of cecum CPT copyright 2020 [employer]. All rights reserved. The codes documented in this report are preliminary and upon public accountant reviewmay be revised to meet current compliance requirements. Abram Canas MD 05/20/2025 1:09:18 PM This report has been signed electronically.Abram Canas MD Number of Addenda: 0 Note Initiated On: 05/20/2025 12:40 PM Scope Withdrawal Time: 0 hours 12 minutes 53 seconds Scope In: 12:49:48 PM Scope Out: 1:06:44 PM Endoscopy Department at [facility] - [address] [place] [address] IMPRESSION: - One 4 mm polyp in the cecum, removed with a cold snare. Resected and retrieved. - The examination was otherwise normal on directand retroflexion views. Recommendation: - Discharge patient to home. - Await pathology results. - No repeat colonoscopy due to age. us Abram Canas MD GI~PROCEDURE ORDERABLES Fin al Result * [facility] SCREENING DIGITAL (11/24/2022 4:36 PM EST) Anatomical Region Laterality Modality Mammography 11/21/2022 9:59 AM EST Narrative 11/24/2022 4:36 PM EST [facility] Diagnostic Imaging Department [address] [place] [address] Patient: HEIDY KAMINSKI./Age/Sex: 1945 - 76 - F Unit#: [id number] Location/Status: SPDIMAM/PRE CLI Mnemonic/Ordering Site: [facility] Ordering Physician: GISELLA JEAN MD [facility] Screening Digital - 11/23/22 - 1006 EXAM: [facility] Screening Digital EXAM DATE AND TIME: 11/23/2022 10:07 AM HISTORY: Screening. Right breast biopsy in 2010, pathology benign. Maternal aunt had breast carcinoma. COMPARISON: 11/17/21, 11/11/20, 09/18/19 TECHNIQUE: CC and MLO views of both breasts were obtained using full field digital mammography. Bilateral digital breast tomosynthesis was performed in the MLO projection. Computer aided detection with Conceptua Math 7.2-H and PageLever 3D 3.1 was employed. TISSUE DENSITY: a. [...] Routine screening mammogram BILATERAL in 1 year. 14851, 61016 3342F, 7025F Dictating Physician: ADORE CASTILLO MD Electronically Signed by: ADORE CASTILLO MD Dic Date/Time: 11/24/221634 Sign date/Time: 11/24/221635 Procedure Note Adore Castillo MD - 11/14/2023 [facility] Diagnostic Imaging Department [address] [place] [address] Patient: NINAHEIDY /Age/Sex: 1945 - 76 - F Unit#: [id number] Location/Status: SPDIMAM/PRE CLI Mnemonic/Ordering Site: [facility] Ordering Physician: GISELLA JEAN MD [facility] Screening Digital - 11/23/22 - 1006 EXAM: [facility] Screening Digital EXAM DATE AND TIME: 11/23/2022 10:07 AM HISTORY: Screening. Right breast biopsy in 2010, pathology benign.Maternal aunt had breast carcinoma. COMPARISON: 11/17/21, 11/11/20, 09/18/19 TECHNIQUE: CC and MLO views of both breasts were obtained using fullfield digital mammography. Bilateral digital breast tomosynthesis was performedin the MLO projection. Computer aided detection with Conceptua Math 7.2-H andPageLever 3D 3.1 was employed. TISSUE DENSITY: a. [...] Routine screening mammogram BILATERAL in 1 year. 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
--- OUTSIDE RECORDS SUMMARY | 2025-10-10 11:32 | XMS_ITS | Continuity of Care Document ---
Author Organization [facility] [address] [place] [address] Phone [phone] Care Team Providers Care Tune Up Mechanic Name Role Phone Carlos Velasquez M.D. Care Team Information Receive r [phone] Everardo YEAGER Care Team Information Receiv er [phone] Problems Active Problems Provider Date Hypothyroidism Ziggy [...] Qnty Indications Order ing Provider Date Levothyroxine [id number] Tablets Take 1 Tablet By Mouth Every Day 90tabs Ziggy Calderon M.D. 04/27/2024 Breo Xohjlyn082-21ytu/Act Aerosol Inhale 1 puff Into The Lungs Daily For 30 Days. Tereza Slaughter MD Ajxuvtdqouu67ft Tablets Take 1 Tablet By Mouth Every Day Carlos Velasquez M.D. Lisinopril-Hydrochloro bvzsqujh38-63.5mg Tablets Take 1 Tablet By Mouth Every Day Carlos Velasquez M.D. Albuterol Sulfate VKI277(90Base) mcg/Act Aerosol Inhale 2 Puffs Into The Lungs Every 4 Hours as Needed For Wheezing For Up To 30 Tereza Slaughter MD Azvshoohxv91uf Capsules DR Take 1 Capsule By Mouth Every Day Carlos Velasquez M.D. Potassium Uotyjiou77Epf Packet Dissolve 1 Packet as Directed Once A Day Carlos Velasquez M.D. Fluticasone Oigqwguelm17vpu/Act Suspension [place] 2 Sprays Into Both Nostrils Twice A [...] 0 TSH With Reflex To FT4 10/23/2023 [facility] TSH With Reflex To [...]
== END 2025-10-10 11:47 | disposition home or self-care (01) ==
LOC: HO.HSMS 10:14
PROVIDERS: PCP Internal Medicine; Visit Provider Physician Assistant Medical
DX: G47.33 Obstructive sleep apnea (adult) (pediatric) (principal); Z99.89 Dependence on other enabling machines and devices; H81.93 Unspecified disorder of vestibular function, bilateral; D51.0 Vitamin B12 deficiency anemia due to intrinsic factor deficiency; R53.83 Other fatigue; R26.89 Other abnormalities of gait and mobility; S09.90XS Unspecified injury of head, sequela; G47.10 Hypersomnia, unspecified; M79.671 Pain in right foot; M79.672 Pain in left foot
CPT/HCPCS: 99214

== ENCOUNTER → 2025-10-10 10:13 | Outpatient (BNVA) | payer MEDICARE, OTHER, SELFPAY | PROVIDERS: PCP Internal Medicine; Visit Provider Physician Assistant Medical | DX: G47.33 Obstructive sleep apnea (adult) (pediatric) (principal); G47.10 Hypersomnia, unspecified; R53.83 Other fatigue; J44.9 Chronic obstructive pulmonary disease, unspecified; M21.371 Foot drop, right foot; M79.672 Pain in left foot; M79.671 Pain in right foot; R26.89 Other abnormalities of gait and mobility; S09.90XS Unspecified injury of head, sequela; H81.93 Unspecified disorder of vestibular function, bilateral; D51.0 Vitamin B12 deficiency anemia due to intrinsic factor deficiency; Z99.81 Dependence on supplemental oxygen; Z99.89 Dependence on other enabling machines and devices | CPT/HCPCS: 99212 ==